=== PATIENT | female | born 1935 | race Caucasian/White ===

== ENCOUNTER → 2016-08-29 | Outpatient (CLI) | payer MEDICARE, OTHER ==
[~2016-08-29] MED LIST: AML5T PO; ASCO250T13 PO; CITA-30 PO; CYAN100023 PO; DENO60SO SC; DOCU-80; GABA-494 PO; GABA300C8 PO; HYDR200T PO; LANS15CA21 PO; LETR2.5T5 PO; METO50TA7 PO; MULT-351; NOR10T PO; OXC300T PO; OXCA150T3 PO; OYST500T29; ROSU10TA16; WARF7.5T
[2016-08-29 14:32] LABS: Basophils # (auto) 0 uL; Basophils % (auto) 0.4 % (0.0-2.0); Eosinophils # (auto) 0.1 uL; Eosinophils % (auto) 1.4 % (0.0-7.0); Hemoglobin 13.7 g/dL (12.2-16.2); Lymphocytes # (auto) 1.6 uL; Mean Corpuscular Hemoglobin 30.5 pg (28.0-32.0); Mean Corpuscular Hgb Conc. 33.5 g/dL (32.0-36.0); Mean Platelet Volume 9.6 fL (7.4-10.4); Monocytes # (auto) 0.6 uL; Monocytes % (auto) 10.3 % (0.0-12.0); Neutrophils # (auto) 3.6 uL; Neutrophils % (auto) 60.9 % (37.0-80.0); Platelet Count (auto) 203 10^3/uL (140-450); Red Cell Distribution Width 13.4 % (11.6-16.0); White Blood Cell 5.8 10^3/uL (4.4-10.8)
[2016-08-29 14:50] LABS: Albumin 3.9 g/dL (3.4-5.0); BUN/Creatinine Ratio 20.7; Bilirubin, Total 0.4 mg/dL (0.2-1.0); Calcium 9.1 mg/dL (8.5-10.1); Potassium 4.2 mmol/L (3.5-5.1); Total Protein 7.5 g/dL (6.4-8.2)
== END | disposition home or self-care (01) ==
LOC: LAB 13:36
PROVIDERS: ATTEND Internal Medicine
DX: C50.619 Malignant neoplasm of axillary tail of unspecified female breast (principal)
CPT/HCPCS: 36415; 80053; 83615; 85025

== ENCOUNTER → 2017-02-28 | Outpatient (CLI) | payer MEDICARE, OTHER ==
[~2017-02-28] MED LIST changes: +GABA-497 PO; -GABA300C8 PO; -LETR2.5T5 PO; +LETR2.5T6 PO
[2017-02-28 14:25] LABS: Basophils # (auto) 0 uL; Basophils % (auto) 0.8 % (0.0-2.0); Eosinophils # (auto) 0.1 uL; Eosinophils % (auto) 2.5 % (0.0-7.0); Hematocrit 38.7 % (36.0-46.0); Hemoglobin 13.3 g/dL (12.2-16.2); Lymphocytes # (auto) 1.6 uL; Lymphocytes % (auto) 27.8 % (10.0-50.0); Mean Corpuscular Hemoglobin 31.4 pg (28.0-32.0); Mean Corpuscular Hgb Conc. 34.3 g/dL (32.0-36.0); Mean Corpuscular Volume 91.6 fL (80.0-100.0); Mean Platelet Volume 9.1 fL (6.9-10.8); Monocytes # (auto) 0.5 uL; Monocytes % (auto) 8.4 % (0.0-12.0); Neutrophils # (auto) 3.5 uL; Neutrophils % (auto) 60.5 % (37.0-80.0); Nucleated Red Blood Cells % 0.3 %; Platelet Count (auto) 161 10^3/uL (140-450); White Blood Cell 5.7 10^3/uL (4.4-10.8)
[2017-02-28 14:51] LABS: Albumin 3.6 g/dL (3.4-5.0); BUN/Creatinine Ratio 22.7; Bilirubin, Total 0.2 mg/dL (0.2-1.0); Calcium 8.2 mg/dL (8.5-10.1); Potassium 4.4 mmol/L (3.5-5.1); Total Protein 7.1 g/dL (6.4-8.2)
== END | disposition home or self-care (01) ==
LOC: LAB 14:02
PROVIDERS: ATTEND Internal Medicine
DX: C50.611 Malignant neoplasm of axillary tail of right female breast (principal)
CPT/HCPCS: 36415; 80053; 83615; 85025

== ENCOUNTER → 2017-03-21 | Outpatient (CLI) | payer MEDICARE ==
[2017-03-21 08:50] LABS: Urine RBC None Seen /hpf (0 - 4)
[2017-03-21 09:28] LABS: Basophils # (auto) 0 uL; Basophils % (auto) 0.8 % (0.0-2.0); Eosinophils # (auto) 0.2 uL; Eosinophils % (auto) 3.7 % (0.0-7.0); Hematocrit 38.9 % (36.0-46.0); Hemoglobin 13.3 g/dL (12.2-16.2); Lymphocytes # (auto) 1.2 uL; Lymphocytes % (auto) 28.3 % (10.0-50.0); Mean Corpuscular Hemoglobin 31.1 pg (28.0-32.0); Mean Corpuscular Hgb Conc. 34.1 g/dL (32.0-36.0); Mean Corpuscular Volume 91.1 fL (80.0-100.0); Mean Platelet Volume 9.4 fL (6.9-10.8); Monocytes # (auto) 0.4 uL; Monocytes % (auto) 8.9 % (0.0-12.0); Neutrophils # (auto) 2.5 uL; Neutrophils % (auto) 58.3 % (37.0-80.0); Nucleated Red Blood Cells % 0.1 %; Platelet Count (auto) 159 10^3/uL (140-450); Red Cell Distribution Width 14.2 % (11.8-14.3); White Blood Cell 4.2 10^3/uL (4.4-10.8)
[2017-03-21 10:06] LABS: Albumin 3.6 g/dL (3.4-5.0); BUN/Creatinine Ratio 24.7; Bilirubin, Total 0.4 mg/dL (0.2-1.0); Calcium 8.9 mg/dL (8.5-10.1); Potassium 4.1 mmol/L (3.5-5.1); Total Protein 7.4 g/dL (6.4-8.2)
[2017-03-21 10:37] LABS: Urine Bilirubin Negative (Negative); Urine Blood Negative /uL (Negative); Urine Color Yellow (Yellow); Urine Glucose Normal (Normal); Urine Ketone Negative (Negative); Urine Mucus FEW (None Seen); Urine Nitrite Negative (Negative); Urine Squamous Epithelial Cell FEW /hpf (<5); Urine Urobilinogen Normal (Negative); Urine pH 6.5 (5.0-8.0)
== END | disposition home or self-care (01) ==
LOC: LAB 08:30
PROVIDERS: ATTEND Internal Medicine
DX: I10 Essential (primary) hypertension (principal); G50.0 Trigeminal neuralgia; F41.8 Other specified anxiety disorders
CPT/HCPCS: 36415; 80053; 80061; 81001; 82043; 84439; 84443; 85025; 85652

== ENCOUNTER → 2017-08-03 | Outpatient (CLI) | payer MEDICARE ==
[~2017-08-03] MED LIST changes: -GABA-494 PO; -GABA-497 PO; +GABA100C9 PO; +GABA300C10 PO
[2017-08-03 10:08] LABS: Albumin 3.9 g/dL (3.4-5.0); BUN/Creatinine Ratio 14.3; Bilirubin, Total 0.5 mg/dL (0.2-1.0); Calcium 8.7 mg/dL (8.5-10.1); Total Protein 7.9 g/dL (6.4-8.2)
== END | disposition home or self-care (01) ==
LOC: LAB 08:36
PROVIDERS: ATTEND Internal Medicine
DX: I10 Essential (primary) hypertension (principal); N39.0 Urinary tract infection, site not specified; E11.9 Type 2 diabetes mellitus without complications; M19.90 Unspecified osteoarthritis, unspecified site
CPT/HCPCS: 36415; 80053; 83721; 84439; 84443

== ENCOUNTER → 2017-09-19 | Outpatient (CLI) | payer MEDICARE ==
[2017-09-19 11:48] LABS: Basophils # (auto) 0 uL; Basophils % (auto) 0.7 % (0.0-2.0); Eosinophils # (auto) 0.1 uL; Eosinophils % (auto) 1.6 % (0.0-7.0); Hematocrit 39.5 % (36.0-46.0); Hemoglobin 13.1 g/dL (12.2-16.2); Lymphocytes # (auto) 1.2 uL; Lymphocytes % (auto) 20.4 % (10.0-50.0); Mean Corpuscular Hemoglobin 30.5 pg (28.0-32.0); Mean Corpuscular Volume 92.2 fL (80.0-100.0); Monocytes # (auto) 0.6 uL; Monocytes % (auto) 9.4 % (0.0-12.0); Neutrophils % (auto) 67.9 % (37.0-80.0); Nucleated Red Blood Cells % 0.1 %; Platelet Count (auto) 220 10^3/uL (140-450); Red Blood Cells 4.29 10^6/uL (4.0-5.20); Red Cell Distribution Width 13.9 % (11.8-14.3)
[2017-09-19 15:02] LABS: Albumin 3.2 g/dL (3.4-5.0); Potassium 4.6 mmol/L (3.5-5.1)
[2017-09-19 15:04] LABS: BUN/Creatinine Ratio 23.7; Calcium 8.8 mg/dL (8.5-10.1)
[2017-09-19 15:06] LABS: Bilirubin, Total 0.3 mg/dL (0.2-1.0)
== END | disposition home or self-care (01) ==
LOC: LAB 10:40
PROVIDERS: ATTEND Internal Medicine
DX: C50.619 Malignant neoplasm of axillary tail of unspecified female breast (principal); I12.9 Hypertensive chronic kidney disease with stage 1 through stage 4 chronic kidney disease, or unspecified chronic kidney disease; E11.22 Type 2 diabetes mellitus with diabetic chronic kidney disease; N18.9 Chronic kidney disease, unspecified
CPT/HCPCS: 36415; 80053; 83615; 85025

== ENCOUNTER → 2018-02-06 | Outpatient (CLI) | payer MEDICARE ==
[~2018-02-06] MED LIST changes: -DENO60SO SC; -DOCU-80; -GABA300C10 PO; +HYDR-4441 PO; -HYDR200T PO; +LISI10TA6 PO; +MELA3TAB27 PO; +MET5XLT PO; -METO50TA7 PO; -NOR10T PO; -OXCA150T3 PO; +OYST500T28 PO; -OYST500T29; +WARF10TA20 PO; +WARF1TAB36 PO; -WARF7.5T
[2018-02-06 12:15] LABS: Basophils # (auto) 0 uL; Basophils % (auto) 0.5 % (0.0-2.0); Eosinophils # (auto) 0.1 uL; Eosinophils % (auto) 1.9 % (0.0-7.0); Hematocrit 39.3 % (36.0-46.0); Hemoglobin 13.6 g/dL (12.2-16.2); Lymphocytes % (auto) 18.7 % (10.0-50.0); Mean Corpuscular Hemoglobin 31.3 pg (28.0-32.0); Mean Corpuscular Hgb Conc. 34.8 g/dL (32.0-36.0); Mean Corpuscular Volume 90.2 fL (80.0-100.0); Monocytes # (auto) 0.5 uL; Monocytes % (auto) 9.4 % (0.0-12.0); Neutrophils # (auto) 3.8 uL; Neutrophils % (auto) 69.5 % (37.0-80.0); Nucleated Red Blood Cells % 0.1 %; Platelet Count (auto) 150 10^3/uL (140-450); Red Blood Cells 4.35 10^6/uL (4.0-5.20); Red Cell Distribution Width 13.4 % (11.8-14.3); White Blood Cell 5.4 10^3/uL (4.4-10.8)
[2018-02-06 13:16] LABS: Albumin 3.6 g/dL (3.4-5.0); BUN/Creatinine Ratio 20.9; Bilirubin, Total 0.3 mg/dL (0.2-1.0); Calcium 8.7 mg/dL (8.5-10.1); Potassium 4.2 mmol/L (3.5-5.1)
== END | disposition home or self-care (01) ==
LOC: LAB 10:34
PROVIDERS: ATTEND Internal Medicine
DX: I10 Essential (primary) hypertension (principal); R19.7 Diarrhea, unspecified; Z90.49 Acquired absence of other specified parts of digestive tract
CPT/HCPCS: 36415; 80053; 85025; 87045; 87493; 87899

== ENCOUNTER 2018-02-20 10:06 | Outpatient (CLI) | payer MEDICARE ==
[~2018-02-20] VITALS: Ht 162.6 cm; Wt 59.0 kg
[2018-02-20 10:21] LABS: Basophils # (auto) 0 uL; Basophils % (auto) 0.7 % (0.0-2.0); Eosinophils # (auto) 0.1 uL; Eosinophils % (auto) 2.8 % (0.0-7.0); Hematocrit 40.7 % (36.0-46.0); Hemoglobin 13.8 g/dL (12.2-16.2); Lymphocytes # (auto) 1.1 uL; Lymphocytes % (auto) 21.7 % (10.0-50.0); Mean Corpuscular Hemoglobin 30.7 pg (28.0-32.0); Mean Corpuscular Hgb Conc. 33.9 g/dL (32.0-36.0); Mean Corpuscular Volume 90.6 fL (80.0-100.0); Monocytes # (auto) 0.5 uL; Monocytes % (auto) 9.3 % (0.0-12.0); Neutrophils # (auto) 3.4 uL; Neutrophils % (auto) 65.5 % (37.0-80.0); Nucleated Red Blood Cells % 0.1 %; Platelet Count (auto) 181 10^3/uL (140-450); Red Cell Distribution Width 13.5 % (11.8-14.3); White Blood Cell 5.2 10^3/uL (4.4-10.8)
[2018-02-20 10:34] LABS: INR 1.4 (0.9-1.15); Partial Thromboplastin Time 26.4 sec (23.78-33.04); Prothrombin Time 14.7 sec (9.27-12.13)
== END 2018-02-20 10:16 | disposition home or self-care (01) ==
LOC: LAB 10:06 → EDSTATUS 02-26 08:15
PROVIDERS: ATTEND Internal Medicine Gastroenterology
DX: K94.01 Colostomy hemorrhage (principal); R19.7 Diarrhea, unspecified; J18.9 Pneumonia, unspecified organism; F41.9 Anxiety disorder, unspecified; F32.9 Major depressive disorder, single episode, unspecified; Z88.8 Allergy status to other drugs, medicaments and biological substances; Z79.01 Long term (current) use of anticoagulants; Z79.899 Other long term (current) drug therapy; Z88.2 Allergy status to sulfonamides; Z86.718 Personal history of other venous thrombosis and embolism; Z85.3 Personal history of malignant neoplasm of breast; Z90.710 Acquired absence of both cervix and uterus; Z90.13 Acquired absence of bilateral breasts and nipples; Z87.891 Personal history of nicotine dependence; Z98.890 Other specified postprocedural states; Z82.49 Family history of ischemic heart disease and other diseases of the circulatory system; Z80.8 Family history of malignant neoplasm of other organs or systems; Z82.3 Family history of stroke; Z80.1 Family history of malignant neoplasm of trachea, bronchus and lung
CPT/HCPCS: 36415; 85025; 85610; 85730

== ENCOUNTER → 2018-03-01 | Outpatient (CLI) | payer MEDICARE ==
[~2018-03-01] MED LIST changes: -CYAN100023 PO; -WARF10TA20 PO
[2018-03-01 10:08] LABS: Basophils # (auto) 0 uL; Basophils % (auto) 0.7 % (0.0-2.0); Eosinophils # (auto) 0.2 uL; Eosinophils % (auto) 3.4 % (0.0-7.0); Hematocrit 39.3 % (36.0-46.0); Hemoglobin 13.6 g/dL (12.2-16.2); Lymphocytes # (auto) 1.1 uL; Lymphocytes % (auto) 20.4 % (10.0-50.0); Mean Corpuscular Hemoglobin 31.7 pg (28.0-32.0); Mean Corpuscular Hgb Conc. 34.7 g/dL (32.0-36.0); Mean Corpuscular Volume 91.5 fL (80.0-100.0); Monocytes # (auto) 0.4 uL; Monocytes % (auto) 7.7 % (0.0-12.0); Neutrophils # (auto) 3.5 uL; Neutrophils % (auto) 67.8 % (37.0-80.0); Nucleated Red Blood Cells % 0.1 %; Platelet Count (auto) 174 10^3/uL (140-450); Red Blood Cells 4.29 10^6/uL (4.0-5.20); White Blood Cell 5.2 10^3/uL (4.4-10.8)
[2018-03-01 20:10] LABS: Albumin 3.9 g/dL (3.4-5.0); Calcium 9.2 mg/dL (8.5-10.1); Potassium 3.9 mmol/L (3.5-5.1)
[2018-03-01 20:17] LABS: Bilirubin, Total 0.5 mg/dL (0.2-1.0); CRP High Sensitivity 1.52 mg/dL (< 0.3); Total Protein 7.8 g/dL (6.4-8.2)
[2018-03-02 15:04] LABS: Urine Bacteria NONE SEEN /hpf (None Seen); Urine Blood Negative /uL (Negative); Urine Specific Gravity 1.016 (1.001-1.035); Urine WBC 1 /hpf (0 - 5)
[2018-03-06 19:51] LABS: Protein, Urine 14.2 mg/dL (0.0-11.9)
== END | disposition home or self-care (01) ==
LOC: LAB 08:49
PROVIDERS: ATTEND Internal Medicine
DX: M81.0 Age-related osteoporosis without current pathological fracture (principal); I10 Essential (primary) hypertension
CPT/HCPCS: 36415; 80053; 81001; 82306; 82570; 84156; 84443; 85025; 85652; 86141; 86160; 86200; 86431

== ENCOUNTER 2018-03-05 13:57 | Emergency (ER) | payer MEDICARE ==
[~2018-03-05] VITALS: Ht 152.4 cm; Wt 54.4 kg
[2018-03-05 15:00] LABS: Basophils # (auto) 0 uL; Basophils % (auto) 0.4 % (0.0-2.0); Eosinophils # (auto) 0.1 uL; Eosinophils % (auto) 2.7 % (0.0-7.0); Hematocrit 37.4 % (36.0-46.0); Hemoglobin 12.6 g/dL (12.2-16.2); Lymphocytes # (auto) 1.1 uL; Lymphocytes % (auto) 23.3 % (10.0-50.0); Mean Corpuscular Hemoglobin 30.9 pg (28.0-32.0); Mean Corpuscular Hgb Conc. 33.8 g/dL (32.0-36.0); Mean Corpuscular Volume 91.5 fL (80.0-100.0); Monocytes # (auto) 0.5 uL; Monocytes % (auto) 10.2 % (0.0-12.0); Neutrophils % (auto) 63.4 % (37.0-80.0); Nucleated Red Blood Cells % 0.1 %; Platelet Count (auto) 170 10^3/uL (140-450); Red Blood Cells 4.08 10^6/uL (4.0-5.20); Red Cell Distribution Width 14.1 % (11.8-14.3); White Blood Cell 4.7 10^3/uL (4.4-10.8)
[2018-03-05 15:15] LABS: Albumin 3.4 g/dL (3.4-5.0); BUN/Creatinine Ratio 20.5; Calcium 8.2 mg/dL (8.5-10.1); Potassium 4.1 mmol/L (3.5-5.1)
[2018-03-05 15:18] LABS: Bilirubin, Total 0.3 mg/dL (0.2-1.0); Total Protein 7.2 g/dL (6.4-8.2)
[2018-03-05 15:34] LABS: Urine Bacteria NONE SEEN /hpf (None Seen); Urine Blood Negative /uL (Negative); Urine Mucus FEW (None Seen); Urine Specific Gravity 1.018 (1.001-1.035); Urine WBC 23 /hpf (0 - 5)
[2018-03-05 16:34] VITALS: BP 138/63
== END 2018-03-05 16:36 | disposition home or self-care (01) ==
LOC: EDUNIT# 13:57 → ER 13:57 → EDBD 13:57 → ER 16:36
DX: S30.0XXA Contusion of lower back and pelvis, initial encounter (principal); S00.83XA Contusion of other part of head, initial encounter; N39.0 Urinary tract infection, site not specified; M19.90 Unspecified osteoarthritis, unspecified site; E78.5 Hyperlipidemia, unspecified; I10 Essential (primary) hypertension; M32.9 Systemic lupus erythematosus, unspecified; Z88.8 Allergy status to other drugs, medicaments and biological substances; Z79.899 Other long term (current) drug therapy; Z86.73 Personal history of transient ischemic attack (TIA), and cerebral infarction without residual deficits; Z90.49 Acquired absence of other specified parts of digestive tract; Z90.710 Acquired absence of both cervix and uterus; W01.198A Fall on same level from slipping, tripping and stumbling with subsequent striking against other object, initial encounter; Y93.89 Activity, other specified; Y99.8 Other external cause status; Y92.128 Other place in nursing home as the place of occurrence of the external cause
CPT/HCPCS: 36415; 70486; 73502; 80053; 81001; 85025; 93005

== ENCOUNTER → 2018-03-27 | Outpatient (CLI) | payer MEDICARE ==
[2018-03-27 13:49] LABS: Basophils # (auto) 0 uL; Basophils % (auto) 0.5 % (0.0-2.0); Eosinophils # (auto) 0.1 uL; Hematocrit 40.9 % (36.0-46.0); Hemoglobin 13.7 g/dL (12.2-16.2); Lymphocytes # (auto) 1.4 uL; Lymphocytes % (auto) 27.1 % (10.0-50.0); Mean Corpuscular Hemoglobin 30.9 pg (28.0-32.0); Mean Corpuscular Hgb Conc. 33.4 g/dL (32.0-36.0); Mean Corpuscular Volume 92.6 fL (80.0-100.0); Monocytes # (auto) 0.5 uL; Monocytes % (auto) 8.8 % (0.0-12.0); Neutrophils # (auto) 3.2 uL; Neutrophils % (auto) 61.6 % (37.0-80.0); Nucleated Red Blood Cells % 0.1 %; Platelet Count (auto) 167 10^3/uL (140-450); Red Blood Cells 4.42 10^6/uL (4.0-5.20); Red Cell Distribution Width 14.1 % (11.8-14.3); White Blood Cell 5.3 10^3/uL (4.4-10.8)
[2018-03-27 14:30] LABS: Calcium 8.7 mg/dL (8.5-10.1); Potassium 3.7 mmol/L (3.5-5.1)
[2018-03-27 14:36] LABS: Albumin 3.9 g/dL (3.4-5.0); BUN/Creatinine Ratio 20.9; Bilirubin, Total 0.4 mg/dL (0.2-1.0)
== END | disposition home or self-care (01) ==
LOC: LAB 12:11
PROVIDERS: ATTEND Internal Medicine
DX: C50.619 Malignant neoplasm of axillary tail of unspecified female breast (principal)
CPT/HCPCS: 36415; 80053; 83615; 85025

== ENCOUNTER 2018-07-03 03:12 | Emergency (ER) | payer MEDICARE ==
[~2018-07-03] VITALS: Ht 162.6 cm; Wt 59.0 kg
[2018-07-03 04:22] LABS: Basophils # (auto) 0 uL; Eosinophils # (auto) 0.1 uL; Eosinophils % (auto) 2.1 % (0.0-7.0); Hemoglobin 12.9 g/dL (12.2-16.2); Lymphocytes # (auto) 0.5 uL; Lymphocytes % (auto) 11.8 % (10.0-50.0); Mean Corpuscular Hemoglobin 30.8 pg (28.0-32.0); Mean Corpuscular Volume 90.5 fL (80.0-100.0); Monocytes # (auto) 0.7 uL; Monocytes % (auto) 15.8 % (0.0-12.0); Neutrophils # (auto) 2.9 uL; Neutrophils % (auto) 69.3 % (37.0-80.0); Nucleated Red Blood Cells % 0.1 %; Platelet Count (auto) 140 10^3/uL (140-450); Red Cell Distribution Width 13.5 % (11.8-14.3); White Blood Cell 4.2 10^3/uL (4.4-10.8)
[2018-07-03 04:32] LABS: Albumin 3.4 g/dL (3.4-5.0); Anion Gap 10 (5-15); BUN/Creatinine Ratio 20.2; Blood Urea Nitrogen 19 mg/dL (7-18); Calcium 8.1 mg/dL (8.5-10.1); Carbon Dioxide 26 mmol/L (21-32); Chloride 98 mmol/L (98-107); GFR African American 74 mL/min; GFR Non-African American 61 mL/min; Glucose 104 mg/dL (74-106); Sodium 134 mmol/L (136-145)
[2018-07-03 04:37] LABS: Alanine Aminotransferase 21 U/L (13-56); Alkaline Phosphatase 112 U/L (45-117); Aspartate Aminotransferase 31 U/L (15-37); Bilirubin, Total 0.2 mg/dL (0.2-1.0)
[2018-07-03 04:40] LABS: INR 2.16 (0.9-1.15); Partial Thromboplastin Time 36.6 sec (23.78-33.04); Prothrombin Time 22.1 sec (9.27-12.13)
[2018-07-03 06:00] VITALS: BP 138/69
== END 2018-07-03 06:23 | disposition left against medical advice (07) ==
LOC: EDBD 03:12 → ER 03:14
DX: R55 Syncope and collapse (principal); D68.9 Coagulation defect, unspecified; R53.1 Weakness; M19.90 Unspecified osteoarthritis, unspecified site; E78.5 Hyperlipidemia, unspecified; I10 Essential (primary) hypertension; Z90.49 Acquired absence of other specified parts of digestive tract; Z90.710 Acquired absence of both cervix and uterus; Z88.8 Allergy status to other drugs, medicaments and biological substances; Z79.01 Long term (current) use of anticoagulants; Z79.899 Other long term (current) drug therapy; Z86.73 Personal history of transient ischemic attack (TIA), and cerebral infarction without residual deficits
CPT/HCPCS: 36415; 70450; 71045; 80053; 83880; 84484; 85025; 85379; 85610; 85730; 93005

== ENCOUNTER → 2018-07-31 | Outpatient (CLI) | payer MEDICARE ==
[2018-07-31 11:32] LABS: Basophils # (auto) 0 uL; Basophils % (auto) 0.4 % (0.0-2.0); Eosinophils # (auto) 0.2 uL; Eosinophils % (auto) 3.7 % (0.0-7.0); Hemoglobin 13.7 g/dL (12.2-16.2); Lymphocytes % (auto) 22.5 % (10.0-50.0); Mean Corpuscular Hemoglobin 30.3 pg (28.0-32.0); Mean Corpuscular Hgb Conc. 33.3 g/dL (32.0-36.0); Mean Corpuscular Volume 90.9 fL (80.0-100.0); Monocytes # (auto) 0.4 uL; Neutrophils # (auto) 2.8 uL; Neutrophils % (auto) 64.4 % (37.0-80.0); Nucleated Red Blood Cells % 0.1 %; Platelet Count (auto) 170 10^3/uL (140-450); Red Blood Cells 4.51 10^6/uL (4.0-5.20); Red Cell Distribution Width 13.8 % (11.8-14.3); White Blood Cell 4.3 10^3/uL (4.4-10.8)
[2018-07-31 11:33] LABS: Potassium 4.1 mmol/L (3.5-5.1)
[2018-07-31 11:39] LABS: Albumin 3.6 g/dL (3.4-5.0); BUN/Creatinine Ratio 18.3; Bilirubin, Total 0.3 mg/dL (0.2-1.0); Calcium 8.3 mg/dL (8.5-10.1); Total Protein 7.7 g/dL (6.4-8.2)
== END | disposition home or self-care (01) ==
LOC: LAB 10:42
DX: G45.0 Vertebro-basilar artery syndrome (principal); M79.7 Fibromyalgia
CPT/HCPCS: 36415; 80053; 85025

== ENCOUNTER → 2018-11-13 | Outpatient (CLI) | payer MEDICARE ==
[2018-11-13 11:27] LABS: Basophils # (auto) 0 uL; Basophils % (auto) 0.5 % (0.0-2.0); Eosinophils # (auto) 0.1 uL; Eosinophils % (auto) 2.2 % (0.0-7.0); Hematocrit 39.2 % (36.0-46.0); Hemoglobin 13.3 g/dL (12.2-16.2); Lymphocytes # (auto) 1.2 uL; Lymphocytes % (auto) 26.5 % (10.0-50.0); Mean Corpuscular Hemoglobin 31.3 pg (28.0-32.0); Mean Corpuscular Hgb Conc. 34.1 g/dL (32.0-36.0); Mean Corpuscular Volume 91.9 fL (80.0-100.0); Monocytes # (auto) 0.4 uL; Monocytes % (auto) 8.9 % (0.0-12.0); Neutrophils # (auto) 2.9 uL; Neutrophils % (auto) 61.9 % (37.0-80.0); Nucleated Red Blood Cells % 0.1 %; Platelet Count (auto) 171 10^3/uL (140-450); Red Blood Cells 4.26 10^6/uL (4.0-5.20); Red Cell Distribution Width 13.6 % (11.8-14.3); White Blood Cell 4.7 10^3/uL (4.4-10.8)
[2018-11-13 11:28] LABS: Urine Bacteria NONE SEEN /hpf (None Seen); Urine Blood TRACE /uL (Negative); Urine Budding Yeast OCCASIONAL /hpf (None Seen); Urine Specific Gravity 1.014 (1.001-1.035); Urine WBC 27 /hpf (0 - 5)
[2018-11-13 13:15] LABS: Albumin 3.8 g/dL (3.4-5.0); BUN/Creatinine Ratio 17.7; Calcium 9.3 mg/dL (8.5-10.1); Potassium 4.2 mmol/L (3.5-5.1)
[2018-11-13 13:18] LABS: Bilirubin, Total 0.4 mg/dL (0.2-1.0); Total Protein 7.5 g/dL (6.4-8.2)
== END | disposition home or self-care (01) ==
LOC: LAB 10:43
PROVIDERS: ATTEND Internal Medicine
DX: M81.0 Age-related osteoporosis without current pathological fracture (principal); M54.30 Sciatica, unspecified side; I10 Essential (primary) hypertension; E78.5 Hyperlipidemia, unspecified; E78.00 Pure hypercholesterolemia, unspecified
CPT/HCPCS: 36415; 80053; 81001; 82043; 82306; 84439; 84443; 85025; 85652

== ENCOUNTER → 2018-12-06 | Outpatient (CLI) | payer MEDICARE | END | disposition home or self-care (01) | LOC: LAB 15:02 | PROVIDERS: ATTEND Internal Medicine | DX: R35.0 Frequency of micturition (principal); R42 Dizziness and giddiness | CPT/HCPCS: 87086; 87088; 87186 ==

== ENCOUNTER → 2019-01-24 | Outpatient (CLI) | payer MEDICARE ==
[~2019-01-24] MED LIST changes: +HYDR-4188 PO; -HYDR-4441 PO; -MET5XLT PO; +METO-6 PO
[2019-01-24 10:48] LABS: Basophils # (auto) 0.1 uL; Basophils % (auto) 1.2 % (0.0-2.0); Eosinophils # (auto) 0.2 uL; Eosinophils % (auto) 2.9 % (0.0-7.0); Hemoglobin 14.3 g/dL (12.2-16.2); Lymphocytes # (auto) 1.6 uL; Mean Corpuscular Hemoglobin 31.2 pg (28.0-32.0); Mean Corpuscular Hgb Conc. 34.1 g/dL (32.0-36.0); Mean Corpuscular Volume 91.4 fL (80.0-100.0); Monocytes # (auto) 0.5 uL; Monocytes % (auto) 9.1 % (0.0-12.0); Neutrophils % (auto) 56.8 % (37.0-80.0); Nucleated Red Blood Cells % 0.1 %; Platelet Count (auto) 174 10^3/uL (140-450); Red Blood Cells 4.59 10^6/uL (4.0-5.20); Red Cell Distribution Width 13.3 % (11.8-14.3); White Blood Cell 5.2 10^3/uL (4.4-10.8)
[2019-01-24 11:07] LABS: Calcium 9.6 mg/dL (8.5-10.1); Potassium 3.5 mmol/L (3.5-5.1)
[2019-01-24 11:14] LABS: Albumin 3.8 g/dL (3.4-5.0); BUN/Creatinine Ratio 19.6; Bilirubin, Total 0.3 mg/dL (0.2-1.0); CRP High Sensitivity 0.16 mg/dL (< 0.3)
== END | disposition home or self-care (01) ==
LOC: LAB 09:50
PROVIDERS: ATTEND Internal Medicine Rheumatology
DX: M32.0 Drug-induced systemic lupus erythematosus (principal); I10 Essential (primary) hypertension
CPT/HCPCS: 36415; 80053; 85025; 85652; 86141

== ENCOUNTER 2019-02-01 08:38 | Emergency (ER) | payer MEDICARE ==
[~2019-02-01] VITALS: Ht 160 cm; Wt 53.5 kg
[2019-02-01 08:55] VITALS: BP 168/74
[2019-02-01] MEDS ORDERED: GABAPENTIN 300 MG CAP PO ONE (09:30)
[2019-02-01] MEDS ORDERED: HYDROcodone-ACET 5/325MG TAB PO ONE (09:30)
[2019-02-01] MEDS ORDERED: PANTOPRAZOLE 40 MG TAB PO ONE (09:45)
[2019-02-01] MEDS ORDERED: OMEPRAZOLE 20MG/10ML ORAL SUSP PO SCH (10:00)
[2019-02-01] MEDS ORDERED: methylPREDNISolone SOD SUCC 125 MG/2 ML VL IM ONE (10:45)
== END 2019-02-01 11:05 | disposition home or self-care (01) ==
LOC: EDBD 08:38 → ER 08:39
DX: M48.061 Spinal stenosis, lumbar region without neurogenic claudication (principal); E78.5 Hyperlipidemia, unspecified; I10 Essential (primary) hypertension; Z90.49 Acquired absence of other specified parts of digestive tract; Z90.710 Acquired absence of both cervix and uterus; Z86.73 Personal history of transient ischemic attack (TIA), and cerebral infarction without residual deficits; Z88.6 Allergy status to analgesic agent; Z79.899 Other long term (current) drug therapy; X50.1XXA Overexertion from prolonged static or awkward postures, initial encounter; Y93.89 Activity, other specified; Y92.89 Other specified places as the place of occurrence of the external cause; Y99.8 Other external cause status
CPT/HCPCS: 72131; 96372; 99284; J2930

== ENCOUNTER 2019-02-10 21:44 | Emergency (ER) | payer MEDICARE ==
[~2019-02-10] VITALS: Ht 162.6 cm; Wt 57.6 kg
[2019-02-11] MEDS ORDERED: MORPHINE SULFATE 4 MG/ML SYR/VIAL ONE (00:42)
[2019-02-11] MEDS ORDERED: ONDANSETRON HCL 4 MG/2 ML VIAL ONE (00:42)
[2019-02-11] MEDS ORDERED: ONDANSETRON HCL 4 MG/2 ML VIAL IM ONE (00:45)
[2019-02-11] MEDS ORDERED: MORPHINE SULFATE 10 MG/ML INJ 1ML SDV IM ONE (00:45)
[2019-02-11 06:10] VITALS: BP 170/71
== END 2019-02-11 07:22 | disposition home or self-care (01) ==
LOC: EDBD 21:44 → ER 21:48
DX: G50.0 Trigeminal neuralgia (principal); M19.90 Unspecified osteoarthritis, unspecified site; E78.5 Hyperlipidemia, unspecified; I10 Essential (primary) hypertension; Z90.49 Acquired absence of other specified parts of digestive tract; Z88.6 Allergy status to analgesic agent; Z79.899 Other long term (current) drug therapy; Z79.01 Long term (current) use of anticoagulants; Z86.73 Personal history of transient ischemic attack (TIA), and cerebral infarction without residual deficits; Z86.718 Personal history of other venous thrombosis and embolism
CPT/HCPCS: 96372; 99283; J2270; J2405

== ENCOUNTER → 2019-04-11 | Outpatient (CLI) | payer MEDICARE ==
[2019-04-11 14:02] LABS: Urine Bacteria MOD /hpf (None Seen); Urine Blood 1+ /uL (Negative); Urine Mucus FEW (None Seen); Urine Specific Gravity 1.018 (1.001-1.035); Urine WBC 2281 /hpf (0 - 5)
== END | disposition home or self-care (01) ==
LOC: LAB 13:30
PROVIDERS: ATTEND Internal Medicine
DX: N39.0 Urinary tract infection, site not specified (principal); M19.90 Unspecified osteoarthritis, unspecified site; E78.5 Hyperlipidemia, unspecified; I10 Essential (primary) hypertension; Z86.73 Personal history of transient ischemic attack (TIA), and cerebral infarction without residual deficits; Z86.718 Personal history of other venous thrombosis and embolism; Z90.710 Acquired absence of both cervix and uterus; Z90.49 Acquired absence of other specified parts of digestive tract; Z88.1 Allergy status to other antibiotic agents
CPT/HCPCS: 81001; 87086; 87088; 87186

== ENCOUNTER → 2019-04-16 | Outpatient (CLI) | payer MEDICARE ==
[2019-04-16 13:38] LABS: Basophils # (auto) 0 uL; Basophils % (auto) 0.6 % (0.0-2.0); Eosinophils # (auto) 0.1 uL; Eosinophils % (auto) 1.7 % (0.0-7.0); Hematocrit 37.9 % (36.0-46.0); Hemoglobin 12.7 g/dL (12.2-16.2); Lymphocytes # (auto) 1.3 uL; Lymphocytes % (auto) 23.6 % (10.0-50.0); Mean Corpuscular Hemoglobin 30.3 pg (28.0-32.0); Mean Corpuscular Hgb Conc. 33.6 g/dL (32.0-36.0); Mean Corpuscular Volume 90.3 fL (80.0-100.0); Monocytes # (auto) 0.6 uL; Monocytes % (auto) 10.9 % (0.0-12.0); Neutrophils # (auto) 3.6 uL; Neutrophils % (auto) 63.2 % (37.0-80.0); Platelet Count (auto) 187 10^3/uL (140-450); Red Blood Cells 4.19 10^6/uL (4.0-5.20); Red Cell Distribution Width 13.5 % (11.8-14.3); White Blood Cell 5.7 10^3/uL (4.4-10.8)
[2019-04-16 14:22] LABS: Potassium 3.9 mmol/L (3.5-5.1)
[2019-04-16 14:35] LABS: Albumin 3.3 g/dL (3.4-5.0); BUN/Creatinine Ratio 15.1; Bilirubin, Total 0.3 mg/dL (0.2-1.0); Calcium 9.3 mg/dL (8.5-10.1); Total Protein 6.7 g/dL (6.4-8.2)
== END | disposition home or self-care (01) ==
LOC: LAB 13:07
PROVIDERS: ATTEND Internal Medicine
DX: C50.619 Malignant neoplasm of axillary tail of unspecified female breast (principal)
CPT/HCPCS: 36415; 80053; 83615; 85025

== ENCOUNTER → 2019-05-01 | Outpatient (CLI) | payer MEDICARE ==
[2019-05-01 15:16] LABS: Urine Bacteria NONE SEEN /hpf (None Seen); Urine Blood 1+ /uL (Negative); Urine Mucus FEW (None Seen); Urine Specific Gravity 1.016 (1.001-1.035); Urine WBC 2011 /hpf (0 - 5); Urine WBC Clumps PRESENT /hpf (None Seen)
== END | disposition home or self-care (01) ==
LOC: LAB 14:33
PROVIDERS: ATTEND Internal Medicine
DX: N39.0 Urinary tract infection, site not specified (principal)
CPT/HCPCS: 81001; 87086; 87088; 87186

== ENCOUNTER → 2019-05-16 | Outpatient (CLI) | payer MEDICARE | END | disposition home or self-care (01) | LOC: LAB 16:22 | PROVIDERS: ATTEND Urology | DX: N39.0 Urinary tract infection, site not specified (principal) | CPT/HCPCS: 87086; 87088; 87186 ==

== ENCOUNTER → 2019-05-30 | Outpatient (CLI) | payer MEDICARE ==
[2019-05-30 13:23] LABS: Urine Bacteria NONE SEEN /hpf (None Seen); Urine Blood Negative /uL (Negative); Urine Specific Gravity 1.009 (1.001-1.035); Urine WBC 85 /hpf (0 - 5)
== END | disposition home or self-care (01) ==
LOC: LAB 13:07
PROVIDERS: ATTEND Internal Medicine
DX: N39.0 Urinary tract infection, site not specified (principal)
CPT/HCPCS: 81001; 87086

== ENCOUNTER → 2019-06-06 | Outpatient (CLI) | payer MEDICARE ==
[2019-06-06 10:42] LABS: Basophils # (auto) 0 uL; Basophils % (auto) 0.5 % (0.0-2.0); Eosinophils # (auto) 0.1 uL; Eosinophils % (auto) 1.2 % (0.0-7.0); Hematocrit 38.8 % (36.0-46.0); Hemoglobin 13.4 g/dL (12.2-16.2); Lymphocytes # (auto) 0.9 uL; Lymphocytes % (auto) 20.6 % (10.0-50.0); Mean Corpuscular Hemoglobin 31.4 pg (28.0-32.0); Mean Corpuscular Hgb Conc. 34.5 g/dL (32.0-36.0); Mean Corpuscular Volume 90.9 fL (80.0-100.0); Monocytes # (auto) 0.5 uL; Monocytes % (auto) 11.1 % (0.0-12.0); Neutrophils % (auto) 66.6 % (37.0-80.0); Platelet Count (auto) 183 10^3/uL (140-450); Red Blood Cells 4.26 10^6/uL (4.0-5.20); Red Cell Distribution Width 13.7 % (11.8-14.3); White Blood Cell 4.5 10^3/uL (4.4-10.8)
[2019-06-06 11:07] LABS: Calcium 9.6 mg/dL (8.5-10.1); Potassium 3.7 mmol/L (3.5-5.1)
[2019-06-06 11:12] LABS: Albumin 3.6 g/dL (3.4-5.0); BUN/Creatinine Ratio 19.7; Bilirubin, Total 0.5 mg/dL (0.2-1.0); Total Protein 7.5 g/dL (6.4-8.2)
== END | disposition home or self-care (01) ==
LOC: LAB 10:24
PROVIDERS: ATTEND Internal Medicine
DX: I10 Essential (primary) hypertension (principal); R55 Syncope and collapse
CPT/HCPCS: 36415; 80053; 85025

== ENCOUNTER → 2019-08-23 | Outpatient (CLI) | payer MEDICARE | END | disposition home or self-care (01) | LOC: LAB 12:42 | PROVIDERS: ATTEND Internal Medicine | DX: I10 Essential (primary) hypertension (principal) | CPT/HCPCS: 87493 ==

== ENCOUNTER → 2019-09-18 | Outpatient (CLI) | payer MEDICARE | END | disposition home or self-care (01) | LOC: LAB 12:47 | PROVIDERS: ATTEND Internal Medicine | DX: I10 Essential (primary) hypertension (principal); N39.0 Urinary tract infection, site not specified | CPT/HCPCS: 87493 ==

== ENCOUNTER → 2019-10-08 | Outpatient (CLI) | payer MEDICARE ==
[2019-10-08 11:12] LABS: Basophils # (auto) 0 10 ^3/uL (0-0.2); Basophils % (auto) 0.5 % (0.0-2.0); Eosinophils # (auto) 0.1 10 ^3/uL (0-0.8); Eosinophils % (auto) 2.2 % (0.0-7.0); Hematocrit 41.2 % (36.0-46.0); Hemoglobin 13.6 g/dL (12.2-16.2); Lymphocytes # (auto) 1.2 10 ^3/uL (0.4-5.4); Lymphocytes % (auto) 20.5 % (10.0-50.0); Mean Corpuscular Hemoglobin 30.8 pg (28.0-32.0); Mean Corpuscular Hgb Conc. 33.1 g/dL (32.0-36.0); Mean Corpuscular Volume 92.8 fL (80.0-100.0); Monocytes # (auto) 0.4 10 ^3/uL (0-1.3); Monocytes % (auto) 7.1 % (0.0-12.0); Neutrophils # (auto) 4.1 10 ^3/uL (1.6-8.6); Neutrophils % (auto) 69.7 % (37.0-80.0); Platelet Count (auto) 155 10^3/uL (140-450); Red Blood Cells 4.43 10^6/uL (4.0-5.20); Red Cell Distribution Width 13.1 % (11.8-14.3)
[2019-10-08 11:23] LABS: Urine Bacteria MOD /hpf (None Seen); Urine Blood 1+ /uL (Negative); Urine Mucus FEW (None Seen); Urine Specific Gravity 1.015 (1.001-1.035); Urine WBC 1495 /hpf (0 - 5); Urine WBC Clumps PRESENT /hpf (None Seen)
[2019-10-08 12:32] LABS: Potassium 4.2 mmol/L (3.5-5.1)
[2019-10-08 12:41] LABS: Albumin 3.6 g/dL (3.4-5.0); BUN/Creatinine Ratio 20.5; Bilirubin, Total 0.4 mg/dL (0.2-1.0); Calcium 9.6 mg/dL (8.5-10.1); Total Protein 7.9 g/dL (6.4-8.2)
== END | disposition home or self-care (01) ==
LOC: LAB 10:40
PROVIDERS: ATTEND Internal Medicine
DX: I10 Essential (primary) hypertension (principal); E78.5 Hyperlipidemia, unspecified; M19.90 Unspecified osteoarthritis, unspecified site
CPT/HCPCS: 36415; 80053; 80061; 81001; 84439; 84443; 85025; 85652; 86225; 86235

== ENCOUNTER → 2019-11-12 | Day surgery (SDC) | payer MEDICARE ==
[2019-11-08 15:07] LABS: Basophils # (auto) 0 10 ^3/uL (0-0.2); Basophils % (auto) 0.6 % (0.0-2.0); Eosinophils # (auto) 0.1 10 ^3/uL (0-0.8); Eosinophils % (auto) 2.5 % (0.0-7.0); Hematocrit 38.5 % (36.0-46.0); Hemoglobin 12.7 g/dL (12.2-16.2); Lymphocytes # (auto) 1.3 10 ^3/uL (0.4-5.4); Lymphocytes % (auto) 23.1 % (10.0-50.0); Mean Corpuscular Hemoglobin 30.9 pg (28.0-32.0); Mean Corpuscular Hgb Conc. 32.9 g/dL (32.0-36.0); Mean Corpuscular Volume 93.7 fL (80.0-100.0); Monocytes # (auto) 0.6 10 ^3/uL (0-1.3); Monocytes % (auto) 9.9 % (0.0-12.0); Neutrophils # (auto) 3.7 10 ^3/uL (1.6-8.6); Neutrophils % (auto) 63.9 % (37.0-80.0); Platelet Count (auto) 164 10^3/uL (140-450); Red Blood Cells 4.11 10^6/uL (4.0-5.20); Red Cell Distribution Width 13.1 % (11.8-14.3); White Blood Cell 5.8 10^3/uL (4.4-10.8)
[2019-11-08 15:22] LABS: INR 1.41 (0.9-1.15); Partial Thromboplastin Time 29.4 sec (23.64-32.05)
[~2019-11-12] VITALS: Ht 160 cm; Wt 51.7 kg
[~2019-11-12] MED LIST changes: -ASCO250T13 PO; -GABA100C9 PO; -HYDR-4188 PO; -LANS15CA21 PO; -LETR2.5T6 PO; +LIDOCAINE VISCOUS 2% 15ML UD ONE; -MELA3TAB27 PO; -MULT-351; -OXC300T PO; -OYST500T28 PO; +SODIUM CHLORIDE LOCK 10 ML ONE; +WARF10TA20 PO; -WARF1TAB36 PO; +WARF5TAB71 PO; +diphenhdrAMINE HCL 50 MG/1 ML VL ONE
[2019-11-12] MEDS: fentaNYL CITRATE 100 MCG/2 ML VL ONE ×2 (09:33→09:35)
[2019-11-12] MEDS: MIDAZOLAM HCL 5 MG/ML-1ML VIAL ONE ×2 (09:33→09:35)
[2019-11-12 10:16] VITALS: BP 156/64
== END | disposition home or self-care (01) ==
LOC: GI 08:20
PROVIDERS: ATTEND Internal Medicine Gastroenterology
DX: R19.7 Diarrhea, unspecified (principal); K29.50 Unspecified chronic gastritis without bleeding; K22.10 Ulcer of esophagus without bleeding; K44.9 Diaphragmatic hernia without obstruction or gangrene; K21.9 Gastro-esophageal reflux disease without esophagitis; Z98.890 Other specified postprocedural states; Z79.899 Other long term (current) drug therapy; Z90.710 Acquired absence of both cervix and uterus; Z90.10 Acquired absence of unspecified breast and nipple; Z11.59 Encounter for screening for other viral diseases
CPT/HCPCS: 36415; 43239; 85025; 85610; 85730; 88305; 88342; J2250; J3010; J7030; U0003

== ENCOUNTER → 2019-12-05 | Outpatient (CLI) | payer MEDICARE, OTHER ==
[~2019-12-05] MED LIST changes: +CARB200T PO; -LIDOCAINE VISCOUS 2% 15ML UD ONE; +LISI-648 PO; -LISI10TA6 PO; +OMEP20TA PO; -SODIUM CHLORIDE LOCK 10 ML ONE; +SUCR1TAB22 PO; -diphenhdrAMINE HCL 50 MG/1 ML VL ONE
== END | disposition home or self-care (01) ==
LOC: LAB 09:19
PROVIDERS: ATTEND Internal Medicine
DX: N39.0 Urinary tract infection, site not specified (principal)
CPT/HCPCS: 87086; 87493

== ENCOUNTER → 2019-12-12 | Outpatient (CLI) | payer MEDICARE ==
[2019-12-19 15:26] LABS: Basophils # (auto) 0 10 ^3/uL (0-0.2); Basophils % (auto) 0.6 % (0.0-2.0); Eosinophils # (auto) 0.2 10 ^3/uL (0-0.8); Eosinophils % (auto) 3.2 % (0.0-7.0); Hematocrit 37.1 % (36.0-46.0); Hemoglobin 12.5 g/dL (12.2-16.2); Lymphocytes # (auto) 1.6 10 ^3/uL (0.4-5.4); Lymphocytes % (auto) 26.6 % (10.0-50.0); Mean Corpuscular Hemoglobin 31.6 pg (28.0-32.0); Mean Corpuscular Hgb Conc. 33.5 g/dL (32.0-36.0); Mean Corpuscular Volume 94.2 fL (80.0-100.0); Monocytes # (auto) 0.5 10 ^3/uL (0-1.3); Monocytes % (auto) 9.2 % (0.0-12.0); Neutrophils # (auto) 3.5 10 ^3/uL (1.6-8.6); Neutrophils % (auto) 60.4 % (37.0-80.0); Nucleated Red Blood Cells % 0.1 %; Platelet Count (auto) 165 10^3/uL (140-450); Red Blood Cells 3.94 10^6/uL (4.0-5.20); White Blood Cell 5.8 10^3/uL (4.4-10.8)
[2019-12-19 15:43] LABS: INR 2.51 (0.9-1.15); Partial Thromboplastin Time 36.2 sec (23.64-32.05)
== END | disposition home or self-care (01) ==
LOC: GI 07:49 → EDSTATUS 12-24 09:21
PROVIDERS: ATTEND Internal Medicine Gastroenterology
DX: Z01.818 Encounter for other preprocedural examination (principal); R19.7 Diarrhea, unspecified
CPT/HCPCS: 36415; 85025; 85610; 85730

== ENCOUNTER → 2019-12-18 | Outpatient (CLI) | payer MEDICARE ==
[2019-12-18 11:10] LABS: Urine Bacteria NONE SEEN /hpf (None Seen); Urine Blood 1+ /uL (Negative); Urine Specific Gravity 1.022 (1.001-1.035); Urine WBC 1203 /hpf (0 - 5); Urine WBC Clumps PRESENT /hpf (None Seen)
== END | disposition home or self-care (01) ==
LOC: LAB 10:51
PROVIDERS: ATTEND Internal Medicine
DX: R30.0 Dysuria (principal)
CPT/HCPCS: 81001; 87086

== ENCOUNTER → 2020-03-05 | Outpatient (CLI) | payer MEDICARE | END | disposition home or self-care (01) | LOC: LAB 11:09 | DX: M25.50 Pain in unspecified joint (principal) | CPT/HCPCS: 36415; 85652; 86141 ==

== ENCOUNTER → 2020-03-24 | Outpatient (CLI) | payer MEDICARE ==
[2020-03-24 11:16] LABS: Basophils # (auto) 0 10 ^3/uL (0-0.2); Basophils % (auto) 0.8 % (0.0-2.0); Eosinophils # (auto) 0.2 10 ^3/uL (0-0.8); Eosinophils % (auto) 3.7 % (0.0-7.0); Hematocrit 38.9 % (36.0-46.0); Hemoglobin 12.9 g/dL (12.2-16.2); Lymphocytes # (auto) 1.1 10 ^3/uL (0.4-5.4); Mean Corpuscular Hemoglobin 31.3 pg (28.0-32.0); Mean Corpuscular Hgb Conc. 33.2 g/dL (32.0-36.0); Mean Corpuscular Volume 94.2 fL (80.0-100.0); Monocytes # (auto) 0.4 10 ^3/uL (0-1.3); Neutrophils # (auto) 2.5 10 ^3/uL (1.6-8.6); Neutrophils % (auto) 58.5 % (37.0-80.0); Nucleated Red Blood Cells % 0.1 %; Platelet Count (auto) 144 10^3/uL (140-450); Red Blood Cells 4.12 10^6/uL (4.0-5.20); Red Cell Distribution Width 13.4 % (11.8-14.3); White Blood Cell 4.3 10^3/uL (4.4-10.8)
[2020-03-24 11:40] LABS: Albumin 3.3 g/dL (3.4-5.0); Calcium 8.8 mg/dL (8.5-10.1); Potassium 4.8 mmol/L (3.5-5.1)
[2020-03-24 11:44] LABS: BUN/Creatinine Ratio 23.3; Bilirubin, Total 0.4 mg/dL (0.2-1.0)
== END | disposition home or self-care (01) ==
LOC: LAB 10:55
PROVIDERS: ATTEND Internal Medicine
DX: B02.22 Postherpetic trigeminal neuralgia (principal); I10 Essential (primary) hypertension
CPT/HCPCS: 36415; 80053; 80156; 85025

== ENCOUNTER 2020-05-13 12:04 | Inpatient (IN) | payer MEDICARE ==
[~2020-05-13] VITALS: Ht 160 cm; Wt 71.6 kg
[2020-05-13] MEDS: BUDESONIDE (INHALATION) 180 MCG IH IN SCH (07:25)
[2020-05-13] MEDS ORDERED: AZITHROMYCIN 500MG/ 250ML 250 ML IV ONE (15:30)
[2020-05-13 15:39] LABS: Basophils # (auto) 0 10 ^3/uL (0-0.2); Basophils % (auto) 0.5 % (0.0-2.0); Eosinophils # (auto) 0 10 ^3/uL (0-0.8); Eosinophils % (auto) 0.1 % (0.0-7.0); Hematocrit 35.6 % (36.0-46.0); Hemoglobin 12.1 g/dL (12.2-16.2); Lymphocytes # (auto) 1.1 10 ^3/uL (0.4-5.4); Lymphocytes % (auto) 13.8 % (10.0-50.0); Mean Corpuscular Hemoglobin 31.5 pg (28.0-32.0); Mean Corpuscular Hgb Conc. 33.9 g/dL (32.0-36.0); Neutrophils # (auto) 6.1 10 ^3/uL (1.6-8.6); Neutrophils % (auto) 73.6 % (37.0-80.0); Nucleated Red Blood Cells % 0.1 %; Platelet Count (auto) 252 10^3/uL (140-450); Red Blood Cells 3.83 10^6/uL (4.0-5.20); Red Cell Distribution Width 13.4 % (11.8-14.3); White Blood Cell 8.3 10^3/uL (4.4-10.8)
[2020-05-13 15:59] LABS: INR 1.4 (0.9-1.15); Partial Thromboplastin Time 26.3 sec (23.0-31.2)
[2020-05-13 16:04] LABS: Albumin 2.7 g/dL (3.4-5.0); Calcium 8.8 mg/dL (8.5-10.1); Magnesium 1.7 mg/dL (1.6-2.6); Potassium 4.3 mmol/L (3.5-5.1)
[2020-05-13 16:06] LABS: BUN/Creatinine Ratio 32.2
[2020-05-13 16:11] LABS: Bilirubin, Total 0.5 mg/dL (0.2-1.0); Total Protein 7.3 g/dL (6.4-8.2)
[2020-05-13] MEDS ORDERED: ALBUTEROL SULF HFA 90MCG INH 200DOSE IN PRN (16:45)
[2020-05-13] MEDS ORDERED: HYDROcodone-ACET 5/325MG TAB PO PRN (16:45)
[2020-05-13] MEDS ORDERED: ONDANSETRON HCL 4 MG/2 ML VIAL IV PRN (16:45)
[2020-05-13] MEDS ORDERED: MORPHINE SULF INJ 2 MG/ML SYRINGE 1ML IV PRN ×2 (16:45)
[2020-05-13] MEDS ORDERED: NITROGLYCERIN 0.4 MG SL TAB SL PRN (16:45)
[2020-05-13] MEDS ORDERED: ACETAMINOPHEN 500 MG TAB PO PRN (16:45)
[2020-05-13] MEDS ORDERED: WARF5TAB71 PO (17:25)
[2020-05-13] MEDS ORDERED: AMLO10TA13 PO (17:37)
[2020-05-13] MEDS ORDERED: CITA10TA70 PO (17:37)
[2020-05-13] MEDS ORDERED: TRAZ50TA2 PO (17:37)
[2020-05-13] MEDS ORDERED: GABA100C9 PO (17:37)
[2020-05-13] MEDS ORDERED: METO25TA93 PO (17:37)
[2020-05-13] MEDS ORDERED: OMEP-260 PO (17:37)
[2020-05-13] MEDS ORDERED: ROSU1TAB14 PO (17:37)
[2020-05-13 18:31] LABS: CRP High Sensitivity 17.4 mg/dL (< 0.3)
[2020-05-13] MEDS ORDERED: WARFARIN SODIUM 5 MG TAB PO ONE (19:00)
[2020-05-13] MEDS ORDERED: BUDESONIDE (INHALATION) 0.5 MG/2 ML NEB NEB SCH (22:00)
[2020-05-14] VITALS (7 sets, daily range): BP systolic 150–183; BP diastolic 70–97
--- NOTE | 2020-05-14 01:00 | NUR ---
Telemetry admit from ER RICKEY EASON admitted to Telemetry unit after SBAR not received. Patient oriented to Gladys Wilkerson, RN primary RN, unit, room, bed, and unit policies regarding patient care and visiting hours. Patient now on continuous telemetry monitoring, tele box # [id number] and telemetry reading on arrival to unit is SR. BP on arrival is 168/76. 2200 BP med not given. Will administer and recheck. Patient placed on bedside oxygen 2L, weighed by bedscale and encouraged to call if they need something. All questions and concerns addressed, patient verbalized understanding. Will continue to monitor.
[2020-05-14] MEDS: amLODIPine BESYLATE 5 MG TAB PO SCH ×2 (01:54→22:43)
[2020-05-14] MEDS: ATORVASTATIN 20 MG TAB PO SCH ×2 (01:54→22:37)
[2020-05-14 06:03] LABS: Basophils # (auto) 0 10 ^3/uL (0-0.2); Basophils % (auto) 0.3 % (0.0-2.0); Eosinophils # (auto) 0 10 ^3/uL (0-0.8); Eosinophils % (auto) 0.8 % (0.0-7.0); Hematocrit 34.5 % (36.0-46.0); Hemoglobin 11.5 g/dL (12.2-16.2); Lymphocytes # (auto) 0.9 10 ^3/uL (0.4-5.4); Mean Corpuscular Hemoglobin 30.7 pg (28.0-32.0); Mean Corpuscular Hgb Conc. 33.4 g/dL (32.0-36.0); Mean Corpuscular Volume 91.8 fL (80.0-100.0); Monocytes # (auto) 0.7 10 ^3/uL (0-1.3); Neutrophils # (auto) 3.8 10 ^3/uL (1.6-8.6); Neutrophils % (auto) 69.9 % (37.0-80.0); Platelet Count (auto) 249 10^3/uL (140-450); Red Blood Cells 3.76 10^6/uL (4.0-5.20); Red Cell Distribution Width 13.1 % (11.8-14.3); White Blood Cell 5.4 10^3/uL (4.4-10.8)
[2020-05-14 06:14] LABS: INR 1.51 (0.9-1.15)
[2020-05-14 06:19] LABS: Potassium 3.6 mmol/L (3.5-5.1)
[2020-05-14 06:40] LABS: BUN/Creatinine Ratio 33.3; Calcium 8.7 mg/dL (8.5-10.1)
[2020-05-14] MEDS: BUDESONIDE (INHALATION) 180 MCG IH IN SCH ×2 (07:25→21:17)
--- NOTE | 2020-05-14 07:25 | NUR ---
Respiratory note: SEEN PT AT THIS TIME. PT AWAKE AND ALERT, NO RESP DISTRESS NOTED. HR 88, RR 16, SPO2 92% ON 2L N/C. NO MDI'S AT BEDSIDE. WILL CALL PHARMACY
[2020-05-14] MEDS: cefTRIAXone 1GM/50ML D5W 50 ML IV SCH (09:28)
[2020-05-14] MEDS: CHOLECALCIFEROL (VITD3) 2,000 UNIT CAP PO SCH (09:43)
[2020-05-14] MEDS: AZITHROMYCIN 500MG/ 250ML 250 ML IV SCH (09:43)
[2020-05-14] MEDS: ASCORBIC ACID 1,000 MG TAB PO SCH (09:43)
[2020-05-14] MEDS: ZINC SULFATE 220mg CAP or TAB PO SCH (09:43)
[2020-05-14] MEDS: FAMOTIDINE 20 MG TAB PO SCH (09:43)
[2020-05-14] MEDS: DexAMETHasone SOD PHOS 10MG/1ML VIAL INJ IV SCH (09:43)
[2020-05-14] MEDS ORDERED: ENOXAPARIN SOD 40 MG/0.4 ML SYRINGE SC SCH (10:00)
[2020-05-14] MEDS ORDERED: WARFARIN SODIUM 2.5 MG TAB PO ONE (17:00)
--- NOTE | 2020-05-14 17:00 | NUR ---
patient BP elevated, patient restarting BP meds on PM shift, gabriel c/o pain in face 01/05, patient states she a little anxious about medications that she takes at home not being started, I reassured patient that she would receive them tonight, I told patient I would give her pain medication (she preferred the norco) and give her time to relax, and we would recheck her BP.
--- NOTE | 2020-05-14 18:08 | NUR ---
Patient given specimen cup, placed at bedside, instructed patient that the next time she needs to urinate she can call using the nurse call button, we will help patient to commode and assist in collecting urine sample. Patient slow to respond but did verbalize understanding of instructions.
--- NOTE | 2020-05-14 18:23 | NUR ---
urine sample collected and sent to lab.
--- NOTE | 2020-05-14 19:15 | NUR ---
Opening Shift Note Assumed care of patient, awake and alert. No S/S of distress/SOB or pain. Pt on room air saturating at 94%. Safety measures in place, bed in lowest locked position, bed rails raised x2, call light within reach. All needs addressed at this time. Instructed on POC and to call for assist PRN, will continue to monitor for changes Q1hr and PRN.
[2020-05-14 21:51] LABS: Urine Bacteria FEW /hpf (None Seen); Urine Blood Negative /uL (Negative); Urine Specific Gravity 1.014 (1.001-1.035); Urine WBC 56 /hpf (0 - 5); Urine WBC Clumps PRESENT /hpf (None Seen)
[2020-05-14] MEDS ORDERED: traZODone HCL 50 MG TAB PO SCH (22:00)
[2020-05-14] MEDS: GABAPENTIN 100 MG CAP PO SCH (22:38)
[2020-05-14] MEDS: carBAMazepine 200 MG TAB PO SCH (22:43)
[2020-05-15 05:00] VITALS: BP 139/72
[2020-05-15] MEDS: carBAMazepine 200 MG TAB PO SCH ×2 (05:53→14:03)
--- NOTE | 2020-05-15 07:53 | NUR ---
Pt refusing MDI therapy at this time. Denies SOB, HR 91, RR 20, SPO2 93% on room air. No s/s of distress.
[2020-05-15] MEDS: BUDESONIDE (INHALATION) 180 MCG IH IN SCH (08:00)
[2020-05-15 08:28] LABS: Basophils # (auto) 0.1 10 ^3/uL (0-0.2); Basophils % (auto) 1.2 % (0.0-2.0); Eosinophils # (auto) 0.1 10 ^3/uL (0-0.8); Eosinophils % (auto) 0.9 % (0.0-7.0); Hematocrit 37.1 % (36.0-46.0); Hemoglobin 12.4 g/dL (12.2-16.2); Lymphocytes % (auto) 17.9 % (10.0-50.0); Mean Corpuscular Hemoglobin 30.6 pg (28.0-32.0); Mean Corpuscular Hgb Conc. 33.5 g/dL (32.0-36.0); Mean Corpuscular Volume 91.3 fL (80.0-100.0); Monocytes # (auto) 0.6 10 ^3/uL (0-1.3); Monocytes % (auto) 10.9 % (0.0-12.0); Neutrophils # (auto) 3.8 10 ^3/uL (1.6-8.6); Neutrophils % (auto) 69.1 % (37.0-80.0); Nucleated Red Blood Cells % 0.1 %; Platelet Count (auto) 345 10^3/uL (140-450); Red Blood Cells 4.06 10^6/uL (4.0-5.20); Red Cell Distribution Width 13.1 % (11.8-14.3); White Blood Cell 5.6 10^3/uL (4.4-10.8)
[2020-05-15 08:43] VITALS: BP 152/69
[2020-05-15 08:43] LABS: INR 2.47 (0.9-1.15); Partial Thromboplastin Time 33.6 sec (23.0-31.2); Potassium 3.1 mmol/L (3.5-5.1)
[2020-05-15 09:06] LABS: BUN/Creatinine Ratio 24.3; Calcium 9.3 mg/dL (8.5-10.1)
--- NOTE | 2020-05-15 09:30 | NUR ---
Patient ambulated around room, reminded patient to take it slow and keep her gait steady, she verbalized understanding.
[2020-05-15] MEDS: cefTRIAXone 1GM/50ML D5W 50 ML IV SCH (09:39)
[2020-05-15] MEDS: GABAPENTIN 100 MG CAP PO SCH (09:40)
[2020-05-15] MEDS: AZITHROMYCIN 500MG/ 250ML 250 ML IV SCH (09:40)
[2020-05-15] MEDS: ZINC SULFATE 220mg CAP or TAB PO SCH (09:40)
[2020-05-15] MEDS: FAMOTIDINE 20 MG TAB PO SCH (09:40)
[2020-05-15] MEDS: DexAMETHasone SOD PHOS 10MG/1ML VIAL INJ IV SCH (09:40)
[2020-05-15] MEDS: CHOLECALCIFEROL (VITD3) 2,000 UNIT CAP PO SCH (09:41)
[2020-05-15] MEDS: ASCORBIC ACID 1,000 MG TAB PO SCH (09:41)
--- NOTE | 2020-05-15 09:50 | NUR ---
Assessment Patient is an 84-year-old female. Unable to speak to patient. Assessment was completed with patient son Guy . Prior to admission patient reside at [facility] and functioned with assistance from staff. Patient does not have any medical equipment now. Per Guy patient will return home to her prior living arrangements post discharge and [facility] will transport patient home before 16:00 only Monday-Monday. Informed Guy he has the right to participate in all discharge planning. Patient POA is Mike (son) . Guy verbalized understanding and agrees to discharge plan. Addendum: 05/15/20 at 0951 by MYAH CARRANZA Amended: Links added.
[2020-05-15] MEDS ORDERED: METOPROLOL SUCCINATE XL 50 MG TAB PO SCH (10:00)
[2020-05-15] MEDS ORDERED: LISINOPRIL 10 MG TAB PO SCH (10:00)
[2020-05-15] MEDS ORDERED: CITALOPRAM HYDROBR 20 MG TAB PO SCH (10:00)
[2020-05-15 12:40] VITALS: BP 143/65
[2020-05-15] MEDS ORDERED: POTASSIUM CHL 20 Meq TABLET PO ONE (13:00)
[2020-05-15 13:40] VITALS: BP 148/88
--- NOTE | 2020-05-15 13:51 | NUR ---
report given to [facility], [facility] attempting to find a road oiling truck driver for patient, they state "out road oiling truck driver isn't in today so let me see if we can have someone pick her up".
--- NOTE | 2020-05-15 14:00 | NUR ---
Patient transferred self to commode without difficulty.
--- NOTE | 2020-05-15 14:03 | NUR ---
per facility nurse, [facility] staff will come pick her up in 30 mins
--- NOTE | 2020-05-15 14:22 | NUR ---
Patient given thorough instructions on discharge, informed that a physical therapist may call her to schedule visits, and instructed on fall precautions, covid isolation and medications, patient verbalized understanding and stated that she would also give the information packet to the nurse at the facility to arrange the proper transport. Patient IV discontinued with catheter intact. Patient tele box returned to cardiac ICU.
--- NOTE | 2020-05-15 14:45 | NUR ---
D/C planning Per social service consult for home health physical therapy. Patient family did not have a home health preference. Faxed clinical information to [facility] Ph: [phone]. Per Aline with [facility] Ph: [phone] patient has been accepted and service to start within 24-48hrs upon d.c day.
--- NOTE | 2020-05-15 15:12 | NUR ---
Patient discharged. Picked up by [facility] staff, patient had all belongings with her.
== END 2020-05-15 15:08 | disposition home health service (06) | DRG 177 ==
LOC: EDBD 12:04 → ER 12:04 → TELE-CENTR 12:05 → TELE-WESTW 05-14 00:15
PROVIDERS: ADMIT Nurse Practitioner Acute Care; ATTEND Internal Medicine
DX: U07.1 COVID-19 (principal); J12.89 Other viral pneumonia; E44.0 Moderate protein-calorie malnutrition; S43.401A Unspecified sprain of right shoulder joint, initial encounter; N18.30 Chronic kidney disease, stage 3 unspecified; E78.5 Hyperlipidemia, unspecified; M32.9 Systemic lupus erythematosus, unspecified; G50.0 Trigeminal neuralgia; F32.9 Major depressive disorder, single episode, unspecified; F41.9 Anxiety disorder, unspecified; I12.9 Hypertensive chronic kidney disease with stage 1 through stage 4 chronic kidney disease, or unspecified chronic kidney disease; W01.0XXA Fall on same level from slipping, tripping and stumbling without subsequent striking against object, initial encounter; Z79.899 Other long term (current) drug therapy; Z68.28 Body mass index [BMI] 28.0-28.9, adult; Z80.0 Family history of malignant neoplasm of digestive organs; Y92.120 Kitchen in nursing home as the place of occurrence of the external cause; Z80.1 Family history of malignant neoplasm of trachea, bronchus and lung; Z82.0 Family history of epilepsy and other diseases of the nervous system; Z82.3 Family history of stroke; Z82.49 Family history of ischemic heart disease and other diseases of the circulatory system; Z90.710 Acquired absence of both cervix and uterus; Z86.73 Personal history of transient ischemic attack (TIA), and cerebral infarction without residual deficits; Y93.89 Activity, other specified; Y99.8 Other external cause status; Y92.128 Other place in nursing home as the place of occurrence of the external cause
CPT/HCPCS: 36415; 70450; 71045; 72125; 73200; 80048; 80053; 81001; 82728; 83605; 83615; 83735; 84443; 84484; 85025; 85379; 85610; 85730; 86141; 87040; 87081; 87426; 93005; 94640; 96365; G0378; J0696; J1100

== ENCOUNTER → 2020-06-04 | Outpatient (CLI) | payer MEDICARE ==
[~2020-06-04] MED LIST changes: -AML5T PO; +AMLO10TA13 PO; -CITA-30 PO; +CITA10TA70 PO; +GABA100C9 PO; -METO-6 PO; +METO25TA93 PO; +OMEP-260 PO; -OMEP20TA PO; -ROSU10TA16; +ROSU1TAB14 PO; +TRAZ50TA2 PO; -WARF10TA20 PO
[2020-06-04 10:58] LABS: Basophils # (auto) 0.1 10 ^3/uL (0-0.2); Basophils % (auto) 1.1 % (0.0-2.0); Eosinophils # (auto) 0.1 10 ^3/uL (0-0.8); Eosinophils % (auto) 2.4 % (0.0-7.0); Hematocrit 33.2 % (36.0-46.0); Hemoglobin 11.1 g/dL (12.2-16.2); Lymphocytes # (auto) 1.4 10 ^3/uL (0.4-5.4); Lymphocytes % (auto) 27.1 % (10.0-50.0); Mean Corpuscular Hemoglobin 31.4 pg (28.0-32.0); Mean Corpuscular Hgb Conc. 33.5 g/dL (32.0-36.0); Mean Corpuscular Volume 93.8 fL (80.0-100.0); Monocytes # (auto) 0.5 10 ^3/uL (0-1.3); Monocytes % (auto) 9.6 % (0.0-12.0); Neutrophils # (auto) 3.1 10 ^3/uL (1.6-8.6); Neutrophils % (auto) 59.8 % (37.0-80.0); Nucleated Red Blood Cells % 0.1 %; Platelet Count (auto) 188 10^3/uL (140-450); Red Blood Cells 3.54 10^6/uL (4.0-5.20); Red Cell Distribution Width 14.4 % (11.8-14.3); White Blood Cell 5.1 10^3/uL (4.4-10.8)
[2020-06-04 11:09] LABS: Albumin 2.8 g/dL (3.4-5.0); Calcium 9.3 mg/dL (8.5-10.1); Potassium 4.2 mmol/L (3.5-5.1)
[2020-06-04 11:12] LABS: BUN/Creatinine Ratio 27.1; Bilirubin, Total 0.3 mg/dL (0.2-1.0); Total Protein 7.1 g/dL (6.4-8.2)
== END | disposition home or self-care (01) ==
LOC: LAB 10:30
PROVIDERS: ATTEND Internal Medicine
DX: I10 Essential (primary) hypertension (principal); G50.0 Trigeminal neuralgia; R42 Dizziness and giddiness
CPT/HCPCS: 36415; 80053; 80156; 85025

== ENCOUNTER → 2020-10-08 | Outpatient (CLI) | payer MEDICARE ==
[~2020-10-08] MED LIST changes: +AMLO-496 PO; -AMLO10TA13 PO; -LISI-648 PO; +LISI-716 PO
[2020-10-08 13:36] LABS: Basophils # (auto) 0 10 ^3/uL (0-0.2); Basophils % (auto) 0.6 % (0.0-2.0); Eosinophils # (auto) 0.1 10 ^3/uL (0-0.8); Eosinophils % (auto) 1.4 % (0.0-7.0); Hematocrit 38.7 % (36.0-46.0); Hemoglobin 13.1 g/dL (12.2-16.2); Lymphocytes # (auto) 1.3 10 ^3/uL (0.4-5.4); Mean Corpuscular Hemoglobin 31.5 pg (28.0-32.0); Mean Corpuscular Volume 92.7 fL (80.0-100.0); Monocytes # (auto) 0.6 10 ^3/uL (0-1.3); Monocytes % (auto) 10.4 % (0.0-12.0); Neutrophils # (auto) 3.4 10 ^3/uL (1.6-8.6); Neutrophils % (auto) 63.6 % (37.0-80.0); Platelet Count (auto) 148 10^3/uL (140-450); Red Blood Cells 4.17 10^6/uL (4.0-5.20); Red Cell Distribution Width 13.1 % (11.8-14.3); White Blood Cell 5.3 10^3/uL (4.4-10.8)
[2020-10-08 14:09] LABS: Albumin 3.3 g/dL (3.4-5.0); Calcium 9.1 mg/dL (8.5-10.1); Potassium 3.8 mmol/L (3.5-5.1)
[2020-10-08 14:12] LABS: BUN/Creatinine Ratio 27.2; Bilirubin, Total 0.3 mg/dL (0.2-1.0); Total Protein 7.6 g/dL (6.4-8.2)
== END | disposition home or self-care (01) ==
LOC: LAB 13:22
PROVIDERS: ATTEND Internal Medicine
DX: C50.911 Malignant neoplasm of unspecified site of right female breast (principal); I82.891 Chronic embolism and thrombosis of other specified veins; G50.0 Trigeminal neuralgia
CPT/HCPCS: 36415; 80053; 83615; 85025; 86300

== ENCOUNTER 2021-01-01 11:58 | Day surgery (SDC) | payer MEDICARE ==
[2020-12-29 12:27] LABS: Urine Bacteria NONE SEEN /hpf (None Seen); Urine Blood Negative /uL (Negative); Urine Specific Gravity 1.016 (1.001-1.035); Urine WBC 4 /hpf (0 - 5)
[2020-12-29 12:30] LABS: Basophils # (auto) 0 10 ^3/uL (0-0.2); Basophils % (auto) 0.4 % (0.0-2.0); Eosinophils # (auto) 0.2 10 ^3/uL (0-0.8); Hematocrit 38.3 % (36.0-46.0); Hemoglobin 13.3 g/dL (12.2-16.2); Lymphocytes # (auto) 1.7 10 ^3/uL (0.4-5.4); Lymphocytes % (auto) 31.2 % (10.0-50.0); Mean Corpuscular Hemoglobin 32.2 pg (28.0-32.0); Mean Corpuscular Hgb Conc. 34.8 g/dL (32.0-36.0); Mean Corpuscular Volume 92.5 fL (80.0-100.0); Monocytes # (auto) 0.5 10 ^3/uL (0-1.3); Monocytes % (auto) 8.7 % (0.0-12.0); Neutrophils # (auto) 3.1 10 ^3/uL (1.6-8.6); Neutrophils % (auto) 55.7 % (37.0-80.0); Nucleated Red Blood Cells % 0.1 %; Red Blood Cells 4.14 10^6/uL (4.0-5.20); Red Cell Distribution Width 13.3 % (11.8-14.3); White Blood Cell 5.5 10^3/uL (4.4-10.8)
[2020-12-29 13:00] LABS: Albumin 3.3 g/dL (3.4-5.0); Calcium 9.1 mg/dL (8.5-10.1); Potassium 4.5 mmol/L (3.5-5.1)
[2020-12-29 13:04] LABS: BUN/Creatinine Ratio 20.9; Bilirubin, Total 0.3 mg/dL (0.2-1.0); Total Protein 7.5 g/dL (6.4-8.2)
[~2021-01-01] VITALS: Ht 162.6 cm; Wt 53.5 kg
[~2021-01-01 11:58] MED LIST changes: +BIOT50007 PO; +CALC667C5 PO; +CYAN1TAB14 PO; +HYDR-4188 PO; +MULT1CHW76 PO; -OMEP-260 PO; +PANT40TA2 PO; -SUCR1TAB22 PO
[2021-01-01] MEDS ORDERED: diphenhdrAMINE HCL 50 MG/1 ML VL ONE (12:43)
[2021-01-01] MEDS ORDERED: SODIUM CHLORIDE LOCK 10 ML ONE (12:43)
[2021-01-01] MEDS: fentaNYL CITRATE 100 MCG/2 ML VL ONE ×2 (13:26→13:32)
[2021-01-01] MEDS: MIDAZOLAM HCL 5 MG/ML-1ML VIAL ONE ×3 (13:26→13:41)
[2021-01-01 14:20] VITALS: BP 141/54
== END 2021-01-01 14:45 | disposition home or self-care (01) ==
LOC: GI 11:58
PROVIDERS: ATTEND Internal Medicine Gastroenterology
DX: R19.4 Change in bowel habit (principal); D12.2 Benign neoplasm of ascending colon; D12.3 Benign neoplasm of transverse colon; K57.30 Diverticulosis of large intestine without perforation or abscess without bleeding; K63.89 Other specified diseases of intestine; K44.9 Diaphragmatic hernia without obstruction or gangrene; I10 Essential (primary) hypertension; F41.9 Anxiety disorder, unspecified; F32.9 Major depressive disorder, single episode, unspecified; Z80.8 Family history of malignant neoplasm of other organs or systems; Z86.010 Personal history of colon polyps; Z79.899 Other long term (current) drug therapy; Z86.73 Personal history of transient ischemic attack (TIA), and cerebral infarction without residual deficits; Z90.10 Acquired absence of unspecified breast and nipple; Z85.3 Personal history of malignant neoplasm of breast; Z87.891 Personal history of nicotine dependence; Z80.2 Family history of malignant neoplasm of other respiratory and intrathoracic organs; Z80.0 Family history of malignant neoplasm of digestive organs; Z20.822 Contact with and (suspected) exposure to COVID-19; Z98.890 Other specified postprocedural states
CPT/HCPCS: 36415; 45380; 45385; 80053; 81001; 85025; J1200; J2250; J3010; J7030; U0003; G0500

== ENCOUNTER → 2021-01-05 | Outpatient (CLI) | payer MEDICARE | END | disposition home or self-care (01) | LOC: XY 08:44 | PROVIDERS: ATTEND Internal Medicine | DX: C50.919 Malignant neoplasm of unspecified site of unspecified female breast (principal); M89.8X9 Other specified disorders of bone, unspecified site | CPT/HCPCS: 78306; A9503 ==

== ENCOUNTER → 2021-02-16 | Outpatient (CLI) | payer MEDICARE ==
[2021-02-16 11:19] LABS: Basophils # (auto) 0 10 ^3/uL (0-0.2); Basophils % (auto) 0.9 % (0.0-2.0); Eosinophils # (auto) 0.2 10 ^3/uL (0-0.8); Eosinophils % (auto) 3.5 % (0.0-7.0); Hematocrit 37.7 % (36.0-46.0); Hemoglobin 12.5 g/dL (12.2-16.2); Lymphocytes # (auto) 1.2 10 ^3/uL (0.4-5.4); Lymphocytes % (auto) 27.3 % (10.0-50.0); Mean Corpuscular Hemoglobin 30.5 pg (28.0-32.0); Mean Corpuscular Hgb Conc. 33.1 g/dL (32.0-36.0); Mean Corpuscular Volume 92.2 fL (80.0-100.0); Monocytes # (auto) 0.3 10 ^3/uL (0-1.3); Monocytes % (auto) 7.4 % (0.0-12.0); Neutrophils # (auto) 2.7 10 ^3/uL (1.6-8.6); Neutrophils % (auto) 60.9 % (37.0-80.0); Red Blood Cells 4.09 10^6/uL (4.0-5.20); White Blood Cell 4.5 10^3/uL (4.4-10.8)
[2021-02-16 11:46] LABS: Free T4 (Free Thyroxine) 1.03 ng/dL (0.89-1.76)
[2021-02-16 11:47] LABS: Folate (Folic Acid) > 24.00 ng/mL (5.38-24)
[2021-02-16 11:50] LABS: Albumin 3.4 g/dL (3.4-5.0); Calcium 9.6 mg/dL (8.5-10.1); Potassium 4.2 mmol/L (3.5-5.1)
[2021-02-16 11:55] LABS: BUN/Creatinine Ratio 19.6; Bilirubin, Total 0.3 mg/dL (0.2-1.0); Total Protein 7.3 g/dL (6.4-8.2)
[2021-02-16 11:56] LABS: Thyroid Stimulating Hormone 1.31 uIU/mL (0.358-3.74)
[2021-02-18 09:49] LABS: Cholesterol 198 mg/dL (< 200)
[2021-02-18 09:51] LABS: HDL Cholesterol 83 mg/dL (40-59); LDL Cholesterol 99 mg/dL (< 100); Triglycerides 111 mg/dL (< 150)
== END | disposition home or self-care (01) ==
LOC: LAB 10:02
PROVIDERS: ATTEND Internal Medicine
DX: C50.911 Malignant neoplasm of unspecified site of right female breast (principal); I82.891 Chronic embolism and thrombosis of other specified veins; Z79.899 Other long term (current) drug therapy; I10 Essential (primary) hypertension
CPT/HCPCS: 36415; 80053; 80061; 80202; 81241; 82607; 82746; 83090; 83615; 84439; 84443; 85025; 85301; 85302; 85305; 85306; 86147; 86225; 86235; 86300

== ENCOUNTER → 2021-03-16 | Outpatient (CLI) | payer MEDICARE | END | disposition home or self-care (01) | LOC: US 10:06 | PROVIDERS: ATTEND Internal Medicine | DX: N63.12 Unspecified lump in the right breast, upper inner quadrant (principal); F32.9 Major depressive disorder, single episode, unspecified; F41.9 Anxiety disorder, unspecified; F99 Mental disorder, not otherwise specified; Z86.73 Personal history of transient ischemic attack (TIA), and cerebral infarction without residual deficits; Z85.3 Personal history of malignant neoplasm of breast; Z90.710 Acquired absence of both cervix and uterus; Z90.10 Acquired absence of unspecified breast and nipple; Z79.899 Other long term (current) drug therapy; Z98.890 Other specified postprocedural states | CPT/HCPCS: 19083; 76642; 76942 ==

== ENCOUNTER → 2021-08-03 | Outpatient (CLI) | payer MEDICARE ==
[2021-08-03 10:41] LABS: Basophils # (auto) 0 10 ^3/uL (0-0.2); Basophils % (auto) 0.9 % (0.0-2.0); Eosinophils # (auto) 0.1 10 ^3/uL (0-0.8); Eosinophils % (auto) 1.5 % (0.0-7.0); Hematocrit 35.8 % (36.0-46.0); Hemoglobin 12.2 g/dL (12.2-16.2); Lymphocytes # (auto) 1.4 10 ^3/uL (0.4-5.4); Lymphocytes % (auto) 28.4 % (10.0-50.0); Mean Corpuscular Hemoglobin 31.8 pg (28.0-32.0); Mean Corpuscular Hgb Conc. 34.1 g/dL (32.0-36.0); Mean Corpuscular Volume 93.3 fL (80.0-100.0); Monocytes # (auto) 0.5 10 ^3/uL (0-1.3); Monocytes % (auto) 9.8 % (0.0-12.0); Neutrophils # (auto) 2.8 10 ^3/uL (1.6-8.6); Neutrophils % (auto) 59.4 % (37.0-80.0); Nucleated Red Blood Cells % 0.1 %; Red Blood Cells 3.84 10^6/uL (4.0-5.20); Red Cell Distribution Width 13.7 % (11.8-14.3); White Blood Cell 4.8 10^3/uL (4.4-10.8)
[2021-08-03 11:36] LABS: Potassium 4.8 mmol/L (3.5-5.1)
[2021-08-03 11:56] LABS: Albumin 3.1 g/dL (3.4-5.0); BUN/Creatinine Ratio 22.3; Bilirubin, Total 0.6 mg/dL (0.2-1.0); Calcium 9.7 mg/dL (8.5-10.1); Total Protein 6.5 g/dL (6.4-8.2)
== END | disposition home or self-care (01) ==
LOC: LAB 09:50
PROVIDERS: ATTEND Internal Medicine
DX: F32.9 Major depressive disorder, single episode, unspecified (principal); I10 Essential (primary) hypertension; G50.0 Trigeminal neuralgia
CPT/HCPCS: 36415; 80053; 84443; 85025

== ENCOUNTER → 2021-11-25 | Outpatient (CLI) | payer MEDICARE ==
[2021-11-25 10:57] LABS: Urine Bacteria NONE SEEN /hpf (None Seen); Urine Blood 2+ /uL (Negative); Urine Budding Yeast LOADED /hpf (None Seen); Urine Specific Gravity 1.018 (1.001-1.035); Urine WBC 3523 /hpf (0 - 5); Urine WBC Clumps PRESENT /hpf (None Seen)
== END | disposition home or self-care (01) ==
LOC: LAB 10:07
PROVIDERS: ATTEND Internal Medicine
DX: N32.89 Other specified disorders of bladder (principal)
CPT/HCPCS: 81001

== ENCOUNTER → 2021-12-09 | Outpatient (CLI) | payer MEDICARE, OTHER | END | disposition home or self-care (01) | LOC: LAB 14:54 | PROVIDERS: ATTEND Urology | DX: N39.0 Urinary tract infection, site not specified (principal) | CPT/HCPCS: 87086 ==

== ENCOUNTER → 2021-12-23 | Outpatient (CLI) | payer MEDICARE ==
[2021-12-23 14:59] LABS: Basophils # (auto) 0 10 ^3/uL (0-0.2); Eosinophils # (auto) 0.2 10 ^3/uL (0-0.8); Lymphocytes # (auto) 1.5 10 ^3/uL (0.4-5.4); Mean Corpuscular Hemoglobin 30.2 pg (28.0-32.0); Mean Corpuscular Hgb Conc. 32.2 g/dL (32.0-36.0); Monocytes # (auto) 0.4 10 ^3/uL (0-1.3); Monocytes % (auto) 9.7 % (0.0-12.0); Neutrophils # (auto) 2.3 10 ^3/uL (1.6-8.6)
[2021-12-23 15:03] LABS: Basophils % (auto) 1.1 % (0.0-2.0); Eosinophils % (auto) 4.9 % (0.0-7.0); Hematocrit 41.1 % (36.0-46.0); Hemoglobin 13.2 g/dL (12.2-16.2); Lymphocytes % (auto) 32.9 % (10.0-50.0); Mean Corpuscular Volume 93.9 fL (80.0-100.0); Neutrophils % (auto) 51.4 % (37.0-80.0); Red Blood Cells 4.37 10^6/uL (4.0-5.20); Red Cell Distribution Width 13.8 % (11.8-14.3); White Blood Cell 4.5 10^3/uL (4.4-10.8)
[2021-12-23 15:56] LABS: Albumin 3.6 g/dL (3.4-5.0); Calcium 9.6 mg/dL (8.5-10.1); Potassium 4.4 mmol/L (3.5-5.1)
[2021-12-23 15:59] LABS: BUN/Creatinine Ratio 23.6; Bilirubin, Total 0.3 mg/dL (0.2-1.0); Total Protein 7.4 g/dL (6.4-8.2)
== END | disposition home or self-care (01) ==
LOC: LAB 14:40
PROVIDERS: ATTEND Internal Medicine
DX: R21 Rash and other nonspecific skin eruption (principal); I10 Essential (primary) hypertension
CPT/HCPCS: 36415; 80053; 85025; 86704; 86705; 86706; 86803; 87340

== ENCOUNTER → 2021-12-28 | Outpatient (CLI) | payer MEDICARE ==
[2021-12-28 10:52] LABS: Basophils % (auto) 0.7 % (0.0-2.0); Eosinophils % (auto) 5.1 % (0.0-7.0); Lymphocytes # (auto) 1.3 10 ^3/uL (0.4-5.4); Lymphocytes % (auto) 29.5 % (10.0-50.0); Monocytes # (auto) 0.4 10 ^3/uL (0-1.3); Monocytes % (auto) 8.2 % (0.0-12.0); Neutrophils # (auto) 2.5 10 ^3/uL (1.6-8.6); Neutrophils % (auto) 56.5 % (37.0-80.0); White Blood Cell 4.4 10^3/uL (4.4-10.8)
[2021-12-28 10:53] LABS: Basophils # (auto) 0 10 ^3/uL (0-0.2); Eosinophils # (auto) 0.2 10 ^3/uL (0-0.8); Hematocrit 39.5 % (36.0-46.0); Hemoglobin 12.8 g/dL (12.2-16.2); Mean Corpuscular Hemoglobin 29.9 pg (28.0-32.0); Mean Corpuscular Hgb Conc. 32.5 g/dL (32.0-36.0); Mean Corpuscular Volume 92.2 fL (80.0-100.0); Red Blood Cells 4.29 10^6/uL (4.0-5.20); Red Cell Distribution Width 13.3 % (11.8-14.3)
[2021-12-28 11:22] LABS: Albumin 3.5 g/dL (3.4-5.0); Calcium 9.3 mg/dL (8.5-10.1); Potassium 4.5 mmol/L (3.5-5.1)
[2021-12-28 11:25] LABS: BUN/Creatinine Ratio 23.9; Bilirubin, Total 0.4 mg/dL (0.2-1.0); Total Protein 7.1 g/dL (6.4-8.2)
== END | disposition home or self-care (01) ==
LOC: LAB 10:38
PROVIDERS: ATTEND Internal Medicine
DX: C50.911 Malignant neoplasm of unspecified site of right female breast (principal); I82.891 Chronic embolism and thrombosis of other specified veins
CPT/HCPCS: 36415; 80053; 83615; 85025; 86300

== ENCOUNTER → 2021-12-31 | Outpatient (CLI) | payer MEDICARE ==
[2021-12-31 09:07] LABS: Urine Bacteria NONE SEEN /hpf (None Seen); Urine Blood Negative /uL (Negative); Urine Mucus FEW (None Seen); Urine Specific Gravity 1.013 (1.001-1.035); Urine WBC 11 /hpf (0 - 5)
== END | disposition home or self-care (01) ==
LOC: LAB 07:22
PROVIDERS: ATTEND Urology
DX: N39.0 Urinary tract infection, site not specified (principal)
CPT/HCPCS: 81001; 87086

== ENCOUNTER 2023-10-14 01:04 | Emergency (ER) | payer MEDICARE ==
[~2023-10-14] VITALS: Ht 152.4 cm; Wt 50.0 kg
[~2023-10-14 01:04] MED LIST changes: -AMLO-496 PO; +AMLO1TAB23 PO; +CITA10TA5 PO; -CITA10TA70 PO; +GABA-1308 PO; -GABA100C9 PO; -HYDR-4188 PO; +HYDR-4491 PO; -LISI-716 PO; +LISI10TA34 PO; -ROSU1TAB14 PO; +ROSU20TA56 PO; +TRAZ-227 PO; -TRAZ50TA2 PO; +WARF-66 PO; -WARF5TAB71 PO
[2023-10-14 01:35] VITALS: PULSE 73; RESP 14; O2SAT 96
[2023-10-14] MEDS ORDERED: HYDR-4798 PO (02:28)
[2023-10-14] MEDS: MORPHINE SULFATE 4 MG/ML SYR/VIAL IV ONE (03:03)
[2023-10-14 05:00] VITALS: BP 144/52; PULSE 73; RESP 13; TEMP 97.6; O2SAT 94
== END 2023-10-14 06:48 | disposition home or self-care (01) ==
LOC: ER 01:04 → EDBD 01:04 → ER 06:48
DX: G89.18 Other acute postprocedural pain (principal); M79.671 Pain in right foot; I10 Essential (primary) hypertension; E78.5 Hyperlipidemia, unspecified; F41.9 Anxiety disorder, unspecified; F32.9 Major depressive disorder, single episode, unspecified; M19.90 Unspecified osteoarthritis, unspecified site; Z86.73 Personal history of transient ischemic attack (TIA), and cerebral infarction without residual deficits; Z98.890 Other specified postprocedural states; Z79.899 Other long term (current) drug therapy
CPT/HCPCS: 93005; 96374; 99285; J2270

== ENCOUNTER → 2023-11-24 | Outpatient (CLI) | payer MEDICARE ==
[~2023-11-24] MED LIST changes: +HYDR-4798 PO
[2023-11-24 10:11] LABS: Basophils # (auto) 0 10 ^3/uL (0-0.2); Basophils % (auto) 0.4 % (0.0-2.0); Eosinophils # (auto) 0.1 10 ^3/uL (0-0.8); Eosinophils % (auto) 2.3 % (0.0-7.0); Hematocrit 40.1 % (36.0-46.0); Hemoglobin 13.5 g/dL (12.2-16.2); Lymphocytes # (auto) 1.1 10 ^3/uL (0.4-5.4); Lymphocytes % (auto) 16.4 % (10.0-50.0); Mean Corpuscular Hemoglobin 31.8 pg (28.0-32.0); Mean Corpuscular Hgb Conc. 33.8 g/dL (32.0-36.0); Monocytes # (auto) 0.4 10 ^3/uL (0-1.3); Monocytes % (auto) 5.8 % (0.0-12.0); Neutrophils # (auto) 4.9 10 ^3/uL (1.6-8.6); Neutrophils % (auto) 75.1 % (37.0-80.0); Nucleated Red Blood Cells % 0.1 %; Red Blood Cells 4.26 10^6/uL (4.0-5.20); Red Cell Distribution Width 13.5 % (11.8-14.3); White Blood Cell 6.5 10^3/uL (4.4-10.8)
[2023-11-24 10:53] LABS: Triglycerides 112 mg/dL (< 150)
[2023-11-24 10:54] LABS: Alanine Aminotransferase 15 U/L (7-40); Albumin 4.3 g/dL (3.2-4.8); Alkaline Phosphatase 127 U/L (46-116); Anion Gap 5 (5-15); Aspartate Aminotransferase 29 U/L (13-40); BUN/Creatinine Ratio 27.2 (10.0-20.0); Bilirubin, Total 0.5 mg/dL (0.2-1.0); Blood Urea Nitrogen 25 mg/dL (9-23); Calcium 10.6 mg/dL (8.5-10.1); Carbon Dioxide 31 mmol/L (20-30); Chloride 105 mmol/L (98-107); Cholesterol 213 mg/dL (< 200); Glucose 104 mg/dL (74-106); HDL Cholesterol 82 mg/dL (40-59); LDL Cholesterol 107 mg/dL (< 100); Potassium 4.7 mmol/L (3.5-5.1); Sodium 141 mmol/L (136-145); Total Protein 7.3 g/dL (5.7-8.2)
[2023-11-24 11:10] LABS: Erythrocyte Sedimentation Rate 62 mm/hr (0-20)
[2023-11-24 11:21] LABS: Urine Bacteria None Seen /hpf (None Seen)
[2023-11-24 11:33] LABS: Urine Blood Negative /uL (Negative); Urine Clarity Clear (Clear); Urine Color Light-Yellow (Yellow); Urine Hyaline Cast FEW /lpf (0 - 2); Urine Protein, UAD Negative (Negative); Urine Specific Gravity 1.012 (1.001-1.035); Urine Urobilinogen Normal (Negative); Urine WBC 5 /hpf (0 - 5)
[2023-11-25 08:06] LABS: Complement C3 149 mg/dL (82-167); Rheumatoid Arthritis Factor <10.0 IU/mL (<14.0); Thyroid Peroxidase (TPO) Ab 12 IU/mL (0-34)
[2023-11-25 09:07] LABS: CA 27.29 35.5 U/mL (0.0-38.6)
[2023-11-25 11:07] LABS: Anti-Nuclear Antibody Direct Positive (Negative); Anti-dsDNA Antibody 37 IU/mL (0-9); Antiscleroderma-70 Antibody <0.2 AI (0.0-0.9); RNP Antibody 0.6 AI (0.0-0.9); Sjogren's Anti-SS-A Antibody <0.2 AI (0.0-0.9); Sjogren's Anti-SS-B Antibody <0.2 AI (0.0-0.9); Smith Antibody <0.2 AI (0.0-0.9)
[2023-11-27 13:07] LABS: Anti-Striated Muscle Antibody Negative (Neg:<1:100)
[2023-11-27 14:06] LABS: Antiparietal Cell Antibody 3.3 Units (0.0-20.0)
== END | disposition home or self-care (01) ==
LOC: LAB 09:24
PROVIDERS: ATTEND Internal Medicine
DX: I10 Essential (primary) hypertension (principal); G50.0 Trigeminal neuralgia; Z79.899 Other long term (current) drug therapy; Z85.3 Personal history of malignant neoplasm of breast
CPT/HCPCS: 36415; 80053; 80061; 80156; 81001; 82306; 84439; 84443; 85025; 85652; 86160; 86225; 86235; 86300; 86376; 86431

== ENCOUNTER → 2024-01-02 | Outpatient (CLI) | payer MEDICARE ==
[2024-01-02 10:52] LABS: Basophils # (auto) 0 10 ^3/uL (0-0.2); Basophils % (auto) 0.6 % (0.0-2.0); Eosinophils # (auto) 0.1 10 ^3/uL (0-0.8); Hematocrit 38.1 % (36.0-46.0); Hemoglobin 12.9 g/dL (12.2-16.2); Lymphocytes # (auto) 1.3 10 ^3/uL (0.4-5.4); Lymphocytes % (auto) 22.1 % (10.0-50.0); Mean Corpuscular Hemoglobin 31.3 pg (28.0-32.0); Mean Corpuscular Hgb Conc. 33.8 g/dL (32.0-36.0); Mean Corpuscular Volume 92.5 fL (80.0-100.0); Monocytes # (auto) 0.4 10 ^3/uL (0-1.3); Monocytes % (auto) 7.4 % (0.0-12.0); Neutrophils # (auto) 4.1 10 ^3/uL (1.6-8.6); Neutrophils % (auto) 67.9 % (37.0-80.0); Nucleated Red Blood Cells % 0.1 %; Red Blood Cells 4.12 10^6/uL (4.0-5.20); Red Cell Distribution Width 13.8 % (11.8-14.3)
[2024-01-02 11:03] LABS: Urine Bacteria FEW /hpf (None Seen); Urine Blood TRACE /uL (Negative); Urine Clarity Turbid (Clear); Urine Color Light-Yellow (Yellow); Urine Mucus FEW (None Seen); Urine Protein, UAD TRACE (Negative); Urine Specific Gravity 1.013 (1.001-1.035); Urine Urobilinogen Normal (Negative); Urine WBC 606 /hpf (0 - 5); Urine WBC Clumps PRESENT /hpf (None Seen); Urine pH 5.5 (5.0-9.0)
[2024-01-02 11:30] LABS: Protein, Urine 21.7 mg/dL (0.0-11.9)
[2024-01-02 11:32] LABS: Creatinine, Urine 69.87 mg/dL (30.0-125.0); Urine Protein/Creatinine Ratio 0.31
[2024-01-02 11:35] LABS: Alanine Aminotransferase 13 U/L (7-40); Albumin 4.3 g/dL (3.2-4.8); Alkaline Phosphatase 128 U/L (46-116); Anion Gap 6 (5-15); Aspartate Aminotransferase 24 U/L (13-40); BUN/Creatinine Ratio 28.1 (10.0-20.0); Blood Urea Nitrogen 32 mg/dL (9-23); CRP High Sensitivity 0.41 mg/dL (<1.0); Calcium 10.1 mg/dL (8.7-10.4); Carbon Dioxide 31 mmol/L (20-30); Chloride 102 mmol/L (98-107); Glucose 79 mg/dL (74-106); Potassium 4.3 mmol/L (3.5-5.1); Sodium 139 mmol/L (136-145)
[2024-01-02 11:36] LABS: Bilirubin, Total 0.5 mg/dL (0.2-1.0); Total Protein 7.3 g/dL (5.7-8.2)
[2024-01-02 11:44] LABS: Erythrocyte Sedimentation Rate 53 mm/hr (0-20)
== END | disposition home or self-care (01) ==
LOC: LAB 10:15
PROVIDERS: ATTEND Internal Medicine
DX: C50.911 Malignant neoplasm of unspecified site of right female breast (principal); I82.891 Chronic embolism and thrombosis of other specified veins; Z79.899 Other long term (current) drug therapy
CPT/HCPCS: 36415; 80053; 81001; 82306; 82570; 83615; 84156; 85025; 85652; 86141; 86160; 86225; 86300

== ENCOUNTER 2024-01-27 11:32 | Inpatient (IN) | payer MEDICARE ==
[~2024-01-27] VITALS: Ht 152.4 cm; Wt 49.2 kg
[2024-01-27 12:38] LABS: Basophils # (auto) 0 10 ^3/uL (0-0.2); Basophils % (auto) 0.5 % (0.0-2.0); Eosinophils # (auto) 0.1 10 ^3/uL (0-0.8); Eosinophils % (auto) 0.8 % (0.0-7.0); Hematocrit 36.9 % (36.0-46.0); Hemoglobin 12.3 g/dL (12.2-16.2); Lymphocytes % (auto) 14.4 % (10.0-50.0); Mean Corpuscular Hemoglobin 31.3 pg (28.0-32.0); Mean Corpuscular Hgb Conc. 33.4 g/dL (32.0-36.0); Mean Corpuscular Volume 93.8 fL (80.0-100.0); Monocytes # (auto) 0.5 10 ^3/uL (0-1.3); Monocytes % (auto) 7.1 % (0.0-12.0); Neutrophils # (auto) 5.5 10 ^3/uL (1.6-8.6); Neutrophils % (auto) 77.2 % (37.0-80.0); Platelet Count (auto) 186 10^3/uL (140-450); Red Blood Cells 3.93 10^6/uL (4.0-5.20); Red Cell Distribution Width 13.9 % (11.8-14.3); White Blood Cell 7.2 10^3/uL (4.4-10.8)
[2024-01-27 12:45] LABS: Chloride 105 mmol/L (98-107); Potassium 4.6 mmol/L (3.5-5.1); Sodium 138 mmol/L (136-145)
[2024-01-27 12:46] LABS: Anion Gap 3 (5-15); Carbon Dioxide 30 mmol/L (20-30)
[2024-01-27 12:51] LABS: BUN/Creatinine Ratio 25.7 (10.0-20.0); Blood Urea Nitrogen 29 mg/dL (9-23); Glucose 103 mg/dL (74-106)
[2024-01-27] MEDS ORDERED: DOCUSATE SOD 100 MG CAP PO PRN (16:30)
[2024-01-27] MEDS ORDERED: NITROGLYCERIN 0.4 MG SL TAB SL PRN (16:30)
[2024-01-27 17:51] VITALS: PULSE 84; RESP 16; O2SAT 99
[2024-01-27] MEDS: SODIUM CHLORIDE 0.9% 1,000 ML IV SCH (18:10)
[2024-01-27 18:37] LABS: INR 1.06 (0.9-1.15); Prothrombin Time 11.2 sec (9.3-11.8)
[2024-01-27 18:59] VITALS: PULSE 77; RESP 20; O2SAT 99
[2024-01-27 20:00] VITALS: RESP 20
[2024-01-27] MEDS: HEPARIN SODIUM (PORCINE) 5000 UNITS/ML 1ML VIAL IV ONE (20:08)
[2024-01-27] MEDS: WARFARIN SODIUM 5 MG TAB PO ONE (20:08)
[2024-01-27 21:00] VITALS: BP 155/84; PULSE 81; RESP 16; TEMP 98; O2SAT 100
[2024-01-27] MEDS: hydrALAZINE HCL 20 MG/ML VL IV PRN (22:26)
[2024-01-27] MEDS: carBAMazepine 200 MG TAB PO SCH (22:27)
[2024-01-27] MEDS: ATORVASTATIN 20 MG TAB PO SCH (22:27)
[2024-01-27] MEDS: BACLOFEN 10 MG TAB PO SCH (22:27)
[2024-01-27] MEDS: GABAPENTIN 100 MG CAP PO SCH (22:27)
[2024-01-28] VITALS (8 sets, daily range): BP systolic 126–166; BP diastolic 45–67; PULSE 79–100; RESP 14–20; TEMP 97.8–98.4; O2SAT 92–99
[2024-01-28] MEDS: MORPHINE SULFATE INJ 2 MG/ml SYRG IV PRN (01:22)
[2024-01-28 06:09] LABS: Basophils # (auto) 0 10 ^3/uL (0-0.2); Basophils % (auto) 0.6 % (0.0-2.0); Eosinophils # (auto) 0.1 10 ^3/uL (0-0.8); Eosinophils % (auto) 1.1 % (0.0-7.0); Hematocrit 34.6 % (36.0-46.0); Hemoglobin 11.8 g/dL (12.2-16.2); Lymphocytes # (auto) 1.4 10 ^3/uL (0.4-5.4); Lymphocytes % (auto) 24.5 % (10.0-50.0); Mean Corpuscular Hemoglobin 31.6 pg (28.0-32.0); Mean Corpuscular Hgb Conc. 34.1 g/dL (32.0-36.0); Mean Corpuscular Volume 92.6 fL (80.0-100.0); Monocytes # (auto) 0.6 10 ^3/uL (0-1.3); Monocytes % (auto) 10.3 % (0.0-12.0); Neutrophils # (auto) 3.6 10 ^3/uL (1.6-8.6); Neutrophils % (auto) 63.5 % (37.0-80.0); Nucleated Red Blood Cells % 0.1 %; Platelet Count (auto) 175 10^3/uL (140-450); Red Blood Cells 3.74 10^6/uL (4.0-5.20); Red Cell Distribution Width 13.8 % (11.8-14.3); White Blood Cell 5.7 10^3/uL (4.4-10.8)
[2024-01-28 06:31] LABS: Alanine Aminotransferase 11 U/L (7-40); Alkaline Phosphatase 107 U/L (46-116); Anion Gap 7 (5-15); Aspartate Aminotransferase 25 U/L (13-40); BUN/Creatinine Ratio 24.1 (10.0-20.0); Blood Urea Nitrogen 26 mg/dL (9-23); Calcium 9.3 mg/dL (8.7-10.4); Carbon Dioxide 26 mmol/L (20-30); Chloride 105 mmol/L (98-107); Glucose 108 mg/dL (74-106); Potassium 3.9 mmol/L (3.5-5.1); Sodium 138 mmol/L (136-145)
[2024-01-28 06:32] LABS: Bilirubin, Total 0.6 mg/dL (0.2-1.0); Total Protein 7.1 g/dL (5.7-8.2)
[2024-01-28] MEDS: ONDANSETRON HCL 4 MG/2 ML VIAL IV PRN (06:33)
[2024-01-28 06:56] LABS: INR 1.09 (0.9-1.15); Prothrombin Time 11.5 sec (9.3-11.8)
[2024-01-28] MEDS: LISINOPRIL 5 MG TAB PO SCH (09:40)
[2024-01-28] MEDS: amLODIPine BESYLATE 5 MG TAB PO SCH (09:40)
[2024-01-28] MEDS: traZODone HCL 50 MG TAB PO SCH (09:40)
[2024-01-28] MEDS: CITALOPRAM HYDROBR 20 MG TAB PO SCH (09:40)
[2024-01-28] MEDS: METOPROLOL SUCCINATE XL 50 MG TAB PO SCH (09:41)
[2024-01-28] MEDS: PANTOPRAZOLE 40 MG TAB PO SCH (09:49)
[2024-01-28] MEDS ORDERED: WARFARIN SODIUM 5 MG TAB PO ONE (17:00)
[2024-01-29] VITALS (9 sets, daily range): BP systolic 121–159; BP diastolic 44–62; PULSE 64–84; RESP 15–18; TEMP 97.8–98.3; O2SAT 91–99
[2024-01-29] MEDS: carBAMazepine 200 MG TAB PO SCH (18:30)
[2024-01-29] MEDS: GABAPENTIN 100 MG CAP PO SCH (18:30)
[2024-01-30] VITALS (8 sets, daily range): BP systolic 150–168; BP diastolic 68–89; PULSE 60–82; RESP 15–17; TEMP 97.7–98.5; O2SAT 94–98
[2024-01-30] MEDS: carBAMazepine 200 MG TAB PO SCH (05:41)
[2024-01-30] MEDS: GABAPENTIN 100 MG CAP PO SCH (05:42)
[2024-01-31] VITALS (15 sets, daily range): BP systolic 125–160; BP diastolic 47–66; PULSE 74–87; RESP 14–18; TEMP 98–98.6; O2SAT 91–98
[2024-01-31] MEDS: SODIUM CHL 0.9% 0 ML ONE (13:36)
[2024-01-31] MEDS: fentaNYL CITRATE 100 MCG/2 ML VL ONE (13:36)
[2024-01-31] MEDS: ANGIOMAX 250 MG VIAL IV ONE (13:36)
[2024-01-31] MEDS: MIDAZOLAM HCL 2MG/2ML 2ml VIAL (1mg/ml) ONE (13:36)
[2024-01-31] MEDS: LIDOCAINE 2%HCL (LOCAL ANESTH.) INJ 20ML MDV ONE (13:38)
[2024-01-31] MEDS: IODIXANOL 320MG/ML 100ML BTL IV ONE ×3 (13:38→14:23)
[2024-01-31] MEDS: HEPARIN SODIUM (PORCINE) 5000 UNITS/ML 1ML VIAL ONE (14:23)
[2024-02-01] VITALS (7 sets, daily range): BP systolic 110–165; BP diastolic 46–97; PULSE 74–90; RESP 16–18; TEMP 98–99.2; O2SAT 18–97
[2024-02-01] MEDS: APIXABAN 5 MG TAB PO SCH (21:03)
[2024-02-02] VITALS (7 sets, daily range): BP systolic 126–159; BP diastolic 48–62; PULSE 70–86; RESP 16–18; TEMP 97.5–98.5; O2SAT 92–98
[2024-02-02 13:38] LABS: COVID19 ANTIGEN SOFIA FIA NEGATIVE (NEGATIVE)
[2024-02-02] MEDS: ACETAMINOPHEN 325 MG TAB PO PRN (13:58)
== END 2024-02-02 18:40 | DRG 253 ==
LOC: ER 11:32 → EDBD 11:32 → OVERFLOW 16:46 → WEST WING 18:30
PROVIDERS: ADMIT Nurse Practitioner Family; ATTEND Family Medicine
PROC: 047Q3ZZ Dilation of Left Anterior Tibial Artery, Percutaneous Approach (ICD-10-PCS; principal; 2024-01-31)
PROC: 047U3ZZ Dilation of Left Peroneal Artery, Percutaneous Approach (ICD-10-PCS; 2024-01-31)
PROC: B41GYZZ Fluoroscopy of Left Lower Extremity Arteries using Other Contrast (ICD-10-PCS; 2024-01-31)
PROC: B41FYZZ Fluoroscopy of Right Lower Extremity Arteries using Other Contrast (ICD-10-PCS; 2024-01-31)
DX: I70.292 Other atherosclerosis of native arteries of extremities, left leg (principal); N17.9 Acute kidney failure, unspecified; G25.3 Myoclonus; R07.81 Pleurodynia; F32.A Depression, unspecified; F41.9 Anxiety disorder, unspecified; E78.5 Hyperlipidemia, unspecified; G50.0 Trigeminal neuralgia; I12.9 Hypertensive chronic kidney disease with stage 1 through stage 4 chronic kidney disease, or unspecified chronic kidney disease; N18.9 Chronic kidney disease, unspecified; M51.36 Other intervertebral disc degeneration, lumbar region; K59.00 Constipation, unspecified; Z20.822 Contact with and (suspected) exposure to COVID-19; Z86.718 Personal history of other venous thrombosis and embolism; Z93.3 Colostomy status; Z90.49 Acquired absence of other specified parts of digestive tract; Z90.710 Acquired absence of both cervix and uterus; Z86.73 Personal history of transient ischemic attack (TIA), and cerebral infarction without residual deficits; Z87.891 Personal history of nicotine dependence; Z82.3 Family history of stroke; Z82.0 Family history of epilepsy and other diseases of the nervous system; Z82.49 Family history of ischemic heart disease and other diseases of the circulatory system; Z80.1 Family history of malignant neoplasm of trachea, bronchus and lung; Z80.0 Family history of malignant neoplasm of digestive organs; Z79.01 Long term (current) use of anticoagulants
CPT/HCPCS: 36415; 37246; 71045; 71101; 73630; 75716; 80048; 80053; 84484; 85025; 85610; 87426; 93005; 93926; 93971; 96374; 97110; 97116; 97163; 97530; 99152; C1725; C1769; C1894; G0378; J2250; J2405; Q9967

== ENCOUNTER 2024-04-23 16:31 | Inpatient (IN) | payer MEDICARE ==
[~2024-04-23] VITALS: Ht 165.1 cm; Wt 48.6 kg
[~2024-04-23 16:31] MED LIST changes: +BACL10TA PO; +CARB200T5 PO; +HYDR-4902 PO; +IBUP-1454 PO; +TRAM50TA2 PO
--- NOTE | 2024-04-23 22:58 | ED.PDOC ---
Back pain HPI HPI Comments A 88 year old female brought in by EMS presents to the ED with a chief complaint of low back pain onset 20 days. Patient states she fell about 20 days ago and shortly after began experiencing low back pain as well as sciatica pain that radiates to bilateral legs, making it difficult to walk. Patient has been given [place] as well as Aleve for pain but has not noticed an improvement. Past medical history of Arthritis, Depression, Anxiety, HTN, HLD, TIA, sciatica. No other symptoms or modifying factors present at this time. Chief Complaint: Back Pain Time Seen by MD: 22:48 Primary Care Provider: none Reviewed Notes: Medications, Allergies Allergies: Coded Allergies: NO KNOWN ALLERGIES (Unverified , 11/12/19) Home Meds Active Scripts Hydrocodone-Acetaminophen (Hydrocodone Bitartrate/AC 5-325 mg) 1 Tab Tab, 1 TAB PO QID PRN, #40 TAB Prov:YVES BARR MD 04/07/24 Hydrocodone-Acetaminophen (Hydrocodone Bitartrate/AC 10-325 mg) 1 Tab Tab, 1 TAB PO Q6HPRN PRN, #20 TAB Prov:TARAN TERRY DO 10/14/23 Reported Medications Pantoprazole Sodium Sesquihydr (Protonix) 40 Mg Tab, 2.5 MG PO DAILY, #30 TAB 12/29/20 Cyanocobalamin (B12) 1,000 Mcg Tab, 1000 MCG PO, TAB 12/29/20 Multiple Vitamins W/ Minerals (Preservision Areds 2) 1 Chw Chw, 2 CHW PO, CHW 12/29/20 Biotin (Biotin) 5,000 Mcg Cap, 1000 MCG PO DAILY, CAP 12/29/20 Calcium Acetate (PHOSLO CAPSULE) 667 Mg Cp, 600 MG PO BID, CAP 12/29/20 Hydroxychloroquine Sulfate (PLAQUENIL) 200 Mg Tab, 200 MG PO DAILY, TAB 12/29/20 Gabapentin (Gabapentin) 100 Mg Cap, 0 PO TID, MG TAKE 2 CAPS PO BID & 3 CAPS PO HS 05/13/20 Trazodone Hcl (Trazodone Hcl) 50 Mg Tab, 50 MG PO DAILY, MG 05/13/20 Citalopram Hydrobromide (Citalopram Hydrobromide) 10 Mg Tab, 10 MG PO DAILY, TAB 05/13/20 Metoprolol Succinate (Metoprolol Succinate Er) 25 Mg Tab, 1 TAB PO DAILY, #30 TAB 5 Refills 05/13/20 Amlodipine Besylate (Amlodipine Besylate) 10 Mg Tab, 1 TAB PO DAILY, #30 TAB 5 Refills 05/13/20 Rosuvastatin Calcium (Rosuvastatin Calcium) 20 Mg Tab, 20 MG PO DAILY, TAB 05/13/20 Warfarin Sodium (Warfarin Sodium) 5 Mg Tab, 2 TAB PO BATRES,,,SA, #90 TAB 1 Refill 05/13/20 Carbamazepine (Tegretol) 200 Mg Tab, 200 MG PO TID, TAB 12/19/19 Warfarin Sodium (Warfarin Sodium) 5 Mg Tab, 1 TAB PO [facility], #90 TAB 1 Refill 11/08/19 Lisinopril (Lisinopril) 10 Mg Tab, 10 MG PO BID for 30 Days, MG 02/20/18 Information Source: Patient, Relative (Child) Mode of Arrival: Ambulatory Timing: Weeks Duration: Since onset Location of Back pain: (B) Lower back, (B) Lumbar Severity: Moderate Prehospital treatment: None Past Medical History PAST MEDICAL HISTORY: Anxiety, Arthritis, Depression, High Lipids, HTN, TIA Past Medical History (Other): sciatica Surgical History: Appendectomy, Cholecystectomy, Hernia Repair, Hysterectomy, Tonsillectomy EARTH BURNER History: No Pertinent EARTH BURNER History Family History Family History: No family hx of Cancer, No family hx of Stroke Social History Smoker: Non-Smoker Alcohol: Denies ETOH Use Drugs: Denies Drug Use Lives In: Retirement Constitutional: denies: chills, diaphoresis, fatigue, fever, malaise, sweats, weakness, others EENTM: denies: blurred vision, double vision, ear bleeding, ear discharge, ear drainage, ear pain, ear ringing, eye pain, eye redness, hearing loss, mouth pain, mouth swelling, nasal discharge, nose bleeding, nose congestion, nose pain, photophobia, tearing, throat pain, throat swelling, voice changes, others Respiratory: denies: cough, hemoptysis, orthopnea, SOB at rest, shortness of breath, SOB with excertion, stridor, wheezing, others Cardiovascular: denies: chest pain, dizzy spells, diaphoresis, Dyspnea on exertion, edema, irregular heart beat, left arm pain, lightheadedness, palpitations, PND, syncope, others Gastrointestinal: denies: abdomen distended, abdominal pain, blood streaked bowels, constipated, diarrhea, dysphagia, difficulty swallowing, hematemesis, melena, nausea, poor appetite, poor fluid intake, rectal bleeding, rectal pain, vomiting, others Genitourinary: denies: abnormal vagina bleeding, burning, dyspareunia, dysuria, flank pain, frequency, hematuria, incontinence, pain, , vagina discharge, urgency, others Neurological: denies: dizziness, fainting, headache, left sided numbness, left sided weakness, numbness, paresthesia, pre-existing deficit, right sided numbness, right sided weakness, seizure, speech problems, tingling, tremors, weakness, others Musculoskeletal: reports: back pain; denies: gout, joint pain, joint swelling, muscle pain, muscle stiffness, neck pain, others Integumetry: denies: bruises, change in color, change in hair/nails, dryness, laceration, lesions, lumps, rash, wounds, others Allergic/Immunocompromised: denies: Difficulty Healing, Frequent Infections, Hives, Itching, others Hematologic/Lymphatic: denies: anemia, blood clots, easy bleeding, easy bruising, swollen glands, others Endocrine: denies: excessive hunger, excessive sweating, excessive thirst, excessive urination, flushing, intolerance to cold, intolerance to heat, unexplained weight gain, unexplained weight loss, others Psychiatric: denies: anxiety, bipolar disorder, depression, hopeless, panic disorder, schizophrenia, sleepless, suicidal, others All Other Systems: Reviewed and Negative Physical Exam General Appearance: Normal, Severe Distress HEENT: Normal ENT Inspection, Pharynx Normal, TMs Normal Neck: Full Range of Motion, Non-Tender, Normal, Normal Inspection Respiratory: Chest Non-Tender, Lungs Clear, No Accessory Muscle Use, No Respiratory Distress, Normal Breath Sounds Cardiovascular: No Edema, No JVD, No Murmur, No Gallop, Normal Peripheral Pulses, Regular Rate/Rhythm Breast Exam: Deferred Gastrointestinal: LLQ (colostomy ), No Organomegaly, Non Tender, No Pulsatile Mass, Normal Bowel Sounds, Soft Genitalia: Deferred Pelvic: Deferred Rectal: Deferred Extremities: No calf tenderness, Normal capillary refill, Normal inspection, Normal range of motion, Non-tender, No pedal edema Musculoskeletal : Location: Bilateral Extremity Location: Back (Severe tenderness with decreased range of motion) Apperance: Normal Neurologic: Alert, algorithm design engineer II-XII nml as Tested, No Motor Deficits, Normal Affect, Normal Mood, No Sensory Deficits Cerebellar Function: Normal Reflexes: Normal Skin: Dry, Normal Color, Warm Lymphatic: No Adenopathy Was a procedure done? Was a procedure done?: No Back Pain Differential Dx Differential Diagnosis: Other (Fracture dislocation degenerative joint disease with radiculopathy) X-Ray, Labs, Meds, VS Vital Signs Date Time Temp Pulse Resp B/P (MAP) Pulse Ox O2 Delivery O2 Flow Rate FiO2 04/23/24 17:36 98.4 82 16 191/89 (123) 97 Labs are pending. Lumbar spine CT is pending Time of 1ST Reevaluation: 23:18 Reevaluation 1ST: Unchanged Patient Education/Counseling: Diagnosis, Treatment, Prognosis Family Education/Counseling: Diagnosis, Treatment, Prognosis Departure 1 Departure Time of Disposition: 00:15 Impression: Primary Impression: Lumbar sprain Qualified Codes: S33.5XXS - Sprain of ligaments of lumbar spine, sequela Additional Impressions: Lumbar radiculopathy Musculoskeletal pain Status post fall Disposition: ADMITTED INPATIENT Admit to: Med Surg Condition: Guarded Critical Care Note Critical Care Time?: Yes (35 min-critical care time only) Stability Stability form required: No I personally scribed for HANNY KNUTSON MD ([email or web address]) on 04/23/24 at 22:58. Electronically submitted by Natalia Zambrano ([email or web address]). I personally scribed for HANNY KNUTSON MD ([email or web address]) on 04/23/24 at 23:04. Electronically submitted by Natalia Zambrano ([email or web address]). HANNY KNUTSON MD Apr 23, 2024 22:58
[2024-04-23] MEDS ORDERED: HYDROmorphone HCL 2 MG/ML VL/or syr IV ONE (23:15)
[2024-04-23] MEDS: ACETAMINOPHEN 325 MG TAB PO ONE (23:30)
[2024-04-23 23:34] LABS: Basophils # (auto) 0 10 ^3/uL (0-0.2); Basophils % (auto) 0.3 % (0.0-2.0); Eosinophils # (auto) 0.2 10 ^3/uL (0-0.8); Eosinophils % (auto) 1.7 % (0.0-7.0); Hematocrit 33.8 % (36.0-46.0); Hemoglobin 11.1 g/dL (12.2-16.2); Lymphocytes # (auto) 1.3 10 ^3/uL (0.4-5.4); Lymphocytes % (auto) 12.1 % (10.0-50.0); Mean Corpuscular Hemoglobin 29.1 pg (28.0-32.0); Mean Corpuscular Hgb Conc. 32.9 g/dL (32.0-36.0); Mean Corpuscular Volume 88.3 fL (80.0-100.0); Monocytes # (auto) 0.7 10 ^3/uL (0-1.3); Monocytes % (auto) 6.9 % (0.0-12.0); Neutrophils # (auto) 8.3 10 ^3/uL (1.6-8.6); Platelet Count (auto) 250 10^3/uL (140-450); Red Blood Cells 3.82 10^6/uL (4.0-5.20); Red Cell Distribution Width 17.2 % (11.8-14.3); White Blood Cell 10.5 10^3/uL (4.4-10.8)
[2024-04-23 23:53] LABS: Alanine Aminotransferase 10 U/L (7-40); Alkaline Phosphatase 152 U/L (46-116); Anion Gap 8 (5-15); Aspartate Aminotransferase 21 U/L (13-40); BUN/Creatinine Ratio 22.9 (10.0-20.0); Blood Urea Nitrogen 22 mg/dL (9-23); Calcium 10.1 mg/dL (8.7-10.4); Carbon Dioxide 27 mmol/L (20-31); Chloride 102 mmol/L (98-107); Glucose 113 mg/dL (74-106); Potassium 4.1 mmol/L (3.5-5.1); Sodium 137 mmol/L (136-145)
[2024-04-23 23:54] LABS: Albumin 4.4 g/dL (3.2-4.8); Bilirubin, Total 0.3 mg/dL (0.2-1.0); Total Protein 7.7 g/dL (5.7-8.2)
--- NOTE | 2024-04-23 23:56 | DVH ---
CHEST RADIOGRAPH Indication: radiculopathy Technique: Single frontal view of the chest was obtained Comparison: XY CHEST XRAY 1 VIEW on DOS: 01/31/24, CHEST PORTABLE on DOS: 05/14/20 FINDINGS: Lines and Tubes: None Lungs: Clear Pleura: No effusion. No pneumothorax. Cardiomediastinal contours: Mild cardiomegaly. Bones: Unremarkable IMPRESSION: 1. Clear lungs.
[2024-04-23 23:58] LABS: INR 1.03 (0.9-1.15); Partial Thromboplastin Time 30.2 SEC (24.5-34.5); Prothrombin Time 10.9 sec (9.3-11.8)
--- NOTE | 2024-04-24 00:01 | DVH ---
CT LS SPINE WO CONTRAST INDICATION: fall EXAM DATE: 04/23/2024 11:11 PM COMPARISON: CT R SHOULDER WO CONTRAST on DOS: 05/13/20 RADIATION DOSE: CTDIvol: 10.9 mGy, DLP: 358.24 mGy*cm PROCEDURE: Utilizing the CT scanner, contiguous axial scans were obtained through the lumbar spine. C oronal and sagittal reformatted images were then generated. All CT scans at this medical facility are performed using dose modulation techniques as appropriate t o a performed exam including the following: Automated exposure control was utilized; adjustment of th e MA and/or KV according to patient size; and use of iterative reconstruction technique. Findings/ IMPRESSION: No acute fracture or subluxation. Moderate to severe compression deformity seen throughout the lumbar spine of unknown chronicity but most likely nonacute. Severe multilevel degenerative disc disease wi th calcified disc bulges and at least mild spinal canal stenosis. There is moderate to severe bilater al osseous neural foraminal narrowing.
--- NOTE | 2024-04-24 00:16 | DVHHP2 ---
History of Present Illness Reason for Visit: Back pain History of Present Illness 88-year-old female presents for evaluation of back pain. Patient reports a two week history of worsening lower back pain. She reports pain radiating down bilateral legs making difficult to ambulate. Denies lower extremity numbness or tingling. Denies incontinence. Other acute complaints Past Medical History Impression, dyslipidemia, hypertension, TIA, sciatica Past Surgical History Cholecystectomy, appendectomy, hernia repair, hysterectomy, tonsillectomy Family History Noncontributory Smoke: No ALCOHOL: none Drugs: None Lives: with Family Review of Systems Review of Systems Review of systems are currently negative otherwise dressing HPI. Allergies: Coded Allergies: NO KNOWN ALLERGIES (Unverified , 11/12/19) Exam Vital Signs Vital Signs Date Time Temp Pulse Resp B/P (MAP) Pulse Ox O2 Delivery O2 Flow Rate FiO2 04/23/24 17:36 98.4 82 16 191/89 (123) 97 Exam Gen: 88-year-old female in mild distress Skin: Warm, dry, normal color and texture, no rash. HEENT: Normocephalic atraumatic, mucous membranes moist and pink. Neck: Cervical and supraclavicular nodes normal without enlargement, trachea is midline, thyroid gland is normal without masses. Pulmonary: Clear to auscultation and percussion bilaterally. Cardiac: Regular rate and rhythm. No murmur Abdomen: Soft, nontender, nondistended, bowel sounds present all 4 quadrants, no guarding, no rigidity, no organomegaly. Extremities: No cyanosis, clubbing, no edema Neuro: Cranial nerves II through XII grossly intact, normal affect and speech, no focal motor deficits. Labs/Xrays ORDERING PHYSICIAN: HANNY KNUTSON MD PROCEDURE(s): LS2CT - LS SPINE WO CONTRAST REASON: fall ORDER NUMBER(s): [id number], ACCESSION NUMBER(s): [id number] CT LS SPINE WO CONTRAST INDICATION: fall EXAM DATE: 04/23/2024 11:11 PM COMPARISON: CT R SHOULDER WO CONTRAST on DOS: 05/13/20 RADIATION DOSE: CTDIvol: 10.9 mGy, DLP: 358.24 mGy*cm PROCEDURE: Utilizing the CT scanner, contiguous axial scans were obtained through the lumbar spine. Coronal and sagittal reformatted images were then generated. All CT scans at this medical facility are performed using dose modulation techniques as appropriate to a performed exam including the following: Automated exposure control was utilized; adjustment of the MA and/or KV according to patie nt size; and use of iterative reconstruction technique. Findings/ IMPRESSION: No acute fracture or subluxation. Moderate to severe compression deformity seen throughout the lumbar spine of unknown chronicity but most likely nonacute. Severe multilevel degenerative disc disease with calcified disc bulges and at least mild spinal canal stenosis. There is moderate to severe bilateral osseous neural foraminal narrowing. Labs Test 04/23/24 23:26 Range/Units White Blood Count 10.5 4.4-10.8 10^3/uL Red Blood Count 3.82 L 4.0-5.20 10^6/uL Hemoglobin 11.1 L 12.2-16.2 g/dL Hematocrit 33.8 L 36.0-46.0 % Mean Corpuscular Volume 88.3 80.0-100.0 fL Mean Corpuscular Hemoglobin 29.1 28.0-32.0 pg Mean Corpuscular Hemoglobin Concent 32.9 32.0-36.0 g/dL Red Cell Distribution Width 17.2 H 11.8-14.3 % Platelet Count 250 140-450 10^3/uL Mean Platelet Volume 8.1 6.9-10.8 fL Neutrophils (%) (Auto) 79.0 37.0-80.0 % Lymphocytes (%) (Auto) 12.1 10.0-50.0 % Monocytes (%) (Auto) 6.9 0.0-12.0 % Eosinophils (%) (Auto) 1.7 0.0-7.0 % Basophils (%) (Auto) 0.3 0.0-2.0 % Neutrophils # (Auto) 8.3 1.6-8.6 10 ^3/uL Lymphocytes # (Auto) 1.3 0.4-5.4 10 ^3/uL Monocytes # (Auto) 0.7 0-1.3 10 ^3/uL Eosinophils # (Auto) 0.2 0-0.8 10 ^3/uL Basophils # (Auto) 0 0-0.2 10 ^3/uL Nucleated Red Blood Cells 0.0 % Prothrombin Time 10.9 9.3-11.8 sec Prothrombin Time INR 1.03 0.9-1.15 Activated Partial Thromboplast Time 30.2 24.5-34.5 SEC Sodium Level 137 136-145 mmol/L Potassium Level 4.1 3.5-5.1 mmol/L Chloride Level 102 98-107 mmol/L Carbon Dioxide Level 27 20-31 mmol/L Anion Gap 8 5-15 Blood Urea Nitrogen 22 9-23 mg/dL Creatinine 0.96 0.550-1.02 mg/dL Glomerular Filtration Rate Calc 58 >90 mL/min BUN/Creatinine Ratio 22.9 H 10.0-20.0 Serum Glucose 113 H 74-106 mg/dL Calcium Level 10.1 8.7-10.4 mg/dL Total Bilirubin 0.3 0.2-1.0 mg/dL Aspartate Amino Transferase (AST) 21 13-40 U/L Alanine Aminotransferase (ALT) 10 7-40 U/L Alkaline Phosphatase 152 H 46-116 U/L Troponin I High Sensitivity 21 </=34 ng/L B-Type Natriuretic Peptide 133.07 0-100 pg/mL Total Protein 7.7 5.7-8.2 g/dL Albumin 4.4 3.2-4.8 g/dL Assessment/Plan Assessment/Plan Assessment Lumbar radiculopathy Acute on chronic back pain Hypertension Chronic pain syndrome Hypertension Plan Admit the patient to [facility] to the hospitalist Pain management Physical therapy eval Resume home medications Continue treatment per orders. Plan discussed with: Patient My Orders Orders - ZANDRA CHRISTIANSON Procedure Category Date Status Time Admit ADMIT 04/23/24 Transmitted 23:52 Date of Service: Apr 24, 2024 Billing Provider: ZANDRA CHRISTIANSON Common Visit Codes: [id number] INP/OBS CARE (MOD) ZANDRA CHRISTIANSON Apr 24, 2024 00:16
[2024-04-24] MEDS ORDERED: MORPHINE SULFATE INJ 2 MG/ml SYRG IV PRN (00:30)
[2024-04-24] MEDS: diazePAM 5 MG TAB PO ONE (01:42)
[2024-04-24] MEDS: KETOROLAC TROMETH 30 MG/ML 1ML VIAL IV ONE (01:44)
[2024-04-24] MEDS: ONDANSETRON HCL 4 MG/2 ML VIAL IV ONE (01:44)
[2024-04-24] MEDS: methylPREDNISolone SOD SUCC 125 MG/2 ML VL IV ONE (01:44)
[2024-04-24] MEDS: MORPHINE SULFATE 4 MG/ML SYR/VIAL IV ONE (01:46)
[2024-04-24 02:00] VITALS: PULSE 73; RESP 17; O2SAT 96
[2024-04-24] MEDS: cloNIDine HCL 0.1 MG TAB PO PRN ×2 (04:22→19:43)
[2024-04-24] MEDS: carBAMazepine 200 MG TAB PO SCH ×2 (05:51→21:50)
[2024-04-24 07:40] VITALS: PULSE 71; RESP 16; O2SAT 98
[2024-04-24] MEDS: BACLOFEN 10 MG TAB PO PRN (08:15)
[2024-04-24] MEDS: ENOXAPARIN SOD 40 MG/0.4 ML SYRINGE SC SCH (10:10)
[2024-04-24] MEDS: LISINOPRIL 20 MG TAB PO SCH (10:10)
[2024-04-24] MEDS: METOPROLOL SUCCINATE XL 50 MG TAB PO SCH (10:11)
[2024-04-24 10:17] LABS: Basophils # (auto) 0 10 ^3/uL (0-0.2); Basophils % (auto) 0.2 % (0.0-2.0); Eosinophils # (auto) 0 10 ^3/uL (0-0.8); Hematocrit 32.5 % (36.0-46.0); Hemoglobin 10.5 g/dL (12.2-16.2); Lymphocytes # (auto) 0.7 10 ^3/uL (0.4-5.4); Lymphocytes % (auto) 9.5 % (10.0-50.0); Mean Corpuscular Hgb Conc. 32.2 g/dL (32.0-36.0); Mean Corpuscular Volume 90.1 fL (80.0-100.0); Monocytes # (auto) 0.1 10 ^3/uL (0-1.3); Monocytes % (auto) 1.7 % (0.0-12.0); Neutrophils # (auto) 6.3 10 ^3/uL (1.6-8.6); Neutrophils % (auto) 88.6 % (37.0-80.0); Nucleated Red Blood Cells % 0.1 %; Platelet Count (auto) 221 10^3/uL (140-450); Red Blood Cells 3.61 10^6/uL (4.0-5.20); Red Cell Distribution Width 17.6 % (11.8-14.3); White Blood Cell 7.1 10^3/uL (4.4-10.8)
[2024-04-24 10:30] LABS: Albumin 3.8 g/dL (3.2-4.8); Alkaline Phosphatase 124 U/L (46-116); Anion Gap 7 (5-15); Aspartate Aminotransferase 18 U/L (13-40); BUN/Creatinine Ratio 21.7 (10.0-20.0); Blood Urea Nitrogen 20 mg/dL (9-23); Calcium 9.3 mg/dL (8.7-10.4); Carbon Dioxide 26 mmol/L (20-31); Chloride 104 mmol/L (98-107); Glucose 130 mg/dL (74-106); Potassium 4.9 mmol/L (3.5-5.1); Sodium 137 mmol/L (136-145)
[2024-04-24 10:31] LABS: Bilirubin, Total 0.4 mg/dL (0.2-1.0); Total Protein 6.8 g/dL (5.7-8.2)
[2024-04-24 10:39] LABS: Alanine Aminotransferase < 9 U/L (7-40)
[2024-04-24] MEDS: GABAPENTIN 300 MG CAP PO ONE (11:23)
[2024-04-24] MEDS ORDERED: ROSU20TA14 PO (11:42)
[2024-04-24 13:24] LABS: Urine Bacteria FEW /hpf (None Seen); Urine Blood Negative /uL (Negative); Urine Budding Yeast OCCASIONAL /hpf (None Seen); Urine Clarity Clear (Clear); Urine Color Light-Yellow (Yellow); Urine Mucus FEW (None Seen); Urine Protein, UAD Negative (Negative); Urine Specific Gravity 1.013 (1.001-1.035); Urine Urobilinogen Normal (Negative); Urine WBC 12 /hpf (0 - 5); Urine pH 5.5 (5.0-9.0)
--- NOTE | 2024-04-24 13:47 | DVHPNRES ---
Progress Note Date Seen: Apr 24, 2024 Resident Creating Document: KIYARickVICKEY CabreraTREY RESIDENT Medical Necessity Reason Pt with a Central, PICC or Fol: Yes Subjective Review of Systems Patient is a 88-year-old female with a past medical history of degenerative disc disease with sciatica, trigeminal neuralgia, lupus, PAD, hypertension came to the ED for a chief complaint of worsening lower back pain for 2 days prior to admission. Patient reports that she lives in [facility] care [facility] for about 6 years and was apparently doing well when she fell down, reportedly lost balance but did not loose consciousness and since then had started having back pain which was initially tolerable and since 2 days before admission had severe lower back pain radiating intermittently to her lower limbs and had difficulty walking. Patient denies sensory loss, numbness or tingling. patient had chronic urinary incontinence but denies rectal incontinence. denies chest pain, shortness of breath, abdominal pain, nausea or vomiting. Lumbar CT without contrast showed No acute fracture or subluxation. Moderate to severe compression deformity seen throughout the lumbar spine of unknown chronicity but most likely nonacute. Severe multilevel degenerative disc disease with calcified disc bulges and at least mild spinal canal stenosis. There is moderate to severe bilateral osseous neural foraminal narrowing. Past medical history: as per HPI Past surgical history: Ruptured colon s/p colostomy about 15 years ago, S/P angioplasty left anterior tibial and peroneal artery , appendicectomy, hysterectomy Social history: Lives in [facility] and denies smoking, alcohol, drug use Home medications: carbamazepine, lisinopril, gabapentin, baclofen Review of systems Patient seen and examined at the bedside. Patient is alert and oriented to time, place and person. Patient reports [id number] lower back pain, no radiation to the legs while in the bed in the semi-recumbent position. Patient was having episode of flare-up of trigeminal neuralgia left-sided with sharp electric shock-like pain episodes lasting few seconds and recurrent. patient was given gabapentin and was later improved. patient has a colostomy bag in the left lumbar quadrant of the abdomen. Patient had urinary incontinence, but no numbness or tingling in the lower extremities, miranda's catheter was inserted. Objective vital signs Vital Sign Date Time Temp Pulse Resp B/P (MAP) Pulse Ox O2 Delivery O2 Flow Rate FiO2 04/24/24 12:00 72 16 123/55 (77) 94 04/24/24 07:40 97.6 97.6 04/24/24 07:40 Nasal Cannula* 2 28 medications Current Medications Medications Dose Ordered Sig/Rojelio Route Start Time Stop Time Status Last Admin Dose Admin Carbamazepine 100 mg TID PO 04/24/24 06:00 04/24/24 05:51 100 MG Atorvastatin Calcium 20 mg HS PO 04/24/24 22:00 Baclofen 10 mg Q8HP PRN PO 04/24/24 00:30 04/24/24 08:15 10 MG Lisinopril 20 mg DAILY PO 04/24/24 10:00 04/24/24 10:10 20 MG Metoprolol Succinate 25 mg DAILY PO 04/24/24 10:00 04/24/24 10:11 25 MG Clonidine HCl 0.1 mg Q6HP PRN PO 04/24/24 00:30 04/24/24 04:22 0.1 MG Acetaminophen/ Hydrocodone Bitart 1 tab Q4HP PRN PO 04/24/24 00:30 Ondansetron HCl 4 mg Q4HP PRN IV 04/24/24 00:30 Enoxaparin Sodium 40 mg DAILY SC 04/24/24 10:00 04/24/24 10:10 40 MG Acetaminophen 650 mg Q6HP PRN PO 04/24/24 00:30 Morphine Sulfate 2 mg Q4HPRN PRN IV 04/24/24 00:30 Examination Physical Examination Gen - no pallor, no icterus, no cyanosis, no clubbing, no LAD, no edema . Skin - Patients skin is warm and dry.. HEENT - normocephalic, atraumatic, moist mucous membranes. Neck - full ROM, no LAD, no JVD. Pulmonary - B/L vesicular breath sounds. no crackles , no wheezing, no stridor. cardiovascular - normal S1,S2 heard. RUSB systolic murmur heard.peripheral pulses normal radial 2+, pedal 2+. capillary refill normal <2 secs. GI - soft abdomen without tenderness to palpation . no hepatospleenomegaly. bowel sounds+ Neurological - Patient is A/O X 3 . Bilateral upper extremity strength 3/5, bilateral lower extremity strength 3/5, no facial droop, normal speech, no tremor, no sensory deficiets. laboratory and microbiology Laboratory Tests 04/24/24 09:47 Test 04/24/24 09:47 Range/Units Serum Glucose 130 H 74-106 mg/dL Problem List/Assessment/Plan Problem List/Assessment/Plan Assessment and plan # Acute Lower Back Pain likely d/t Mechanical fall # H/o degenerative disc disease with sciatica - lumbar CT shows no acute fracture or subluxation, [id number] compression deformity seen throughout the lumbar spine of unknown chronicity but most likely non use, multilevel degenerative disc disease with calcified disc bulges at least mild spinal canal stenosis. Moderate to severe bilateral osseous neural foraminal narrowing. - patient given one dose of Solu medrol 125mg iV - Pain control with as needed meds - Ketorolac for breakthrough pain - scheduled baclofen - Physical therapy evaluation pending # Trigeminal neuralgia - patient on carbamazepine 100mg am and 200 mg pm - on scheduled gabapentin # H/o PAD S/P angioplasty - on aspirin 81mg # Uncontrolled Hypertension - On lisinopril - on metoprolol - nifedipine - clonidine PRN if SBP>170mmhg # UTI likely Acute cystitis - UA likely 1+LE, increased Urine WBCs, few bacteria seen - on ceftriaxone Goals of care discussed with patient and the family for over 35 mins. Full code Plan discussed with Plan discussed with: Patient, Son (jacinto (power of corporate associate attorney)) Date of Service: Apr 24, 2024 Billing Provider: SHAVONNE NUÑEZ MD Common Visit Codes: [id number] INP/OBS CARE(HIGH) JONN HOUGH RESIDENT Apr 24, 2024 13:47 SHAVONNE NUÑEZ MD Apr 29, 2024 00:00
[2024-04-24] MEDS ORDERED: BACLOFEN 10 MG TAB PO PRN (18:00)
[2024-04-24 18:37] VITALS: BP 179/70; PULSE 72; RESP 18; TEMP 98.5; O2SAT 95; O2SAT 96
[2024-04-24] MEDS: cefTRIAXone 1GM/50ML D5W 50 ML IV ONE (19:43)
[2024-04-24 20:00] VITALS: PULSE 75; PULSE 96; RESP 18; O2SAT 96
[2024-04-24 21:00] VITALS: BP 154/61; PULSE 75; RESP 18; TEMP 98.1; O2SAT 96
[2024-04-24] MEDS: GABAPENTIN 100 MG CAP PO SCH (21:49)
[2024-04-24] MEDS: NIFEdipine ER 30 MG TAB PO SCH (21:51)
[2024-04-24] MEDS: ATORVASTATIN 20 MG TAB PO SCH (21:51)
[2024-04-25] VITALS (8 sets, daily range): BP systolic 131–172; BP diastolic 51–64; PULSE 63–86; RESP 16–19; TEMP 97.6–98.4; O2SAT 93–98
[2024-04-25 05:39] LABS: Basophils # (auto) 0 10 ^3/uL (0-0.2); Basophils % (auto) 0.6 % (0.0-2.0); Eosinophils # (auto) 0.2 10 ^3/uL (0-0.8); Eosinophils % (auto) 2.9 % (0.0-7.0); Hematocrit 30.6 % (36.0-46.0); Lymphocytes # (auto) 1.1 10 ^3/uL (0.4-5.4); Lymphocytes % (auto) 18.2 % (10.0-50.0); Mean Corpuscular Hemoglobin 28.8 pg (28.0-32.0); Mean Corpuscular Hgb Conc. 32.8 g/dL (32.0-36.0); Mean Corpuscular Volume 87.9 fL (80.0-100.0); Monocytes # (auto) 0.5 10 ^3/uL (0-1.3); Monocytes % (auto) 7.5 % (0.0-12.0); Neutrophils # (auto) 4.3 10 ^3/uL (1.6-8.6); Neutrophils % (auto) 70.8 % (37.0-80.0); Nucleated Red Blood Cells % 0.1 %; Platelet Count (auto) 214 10^3/uL (140-450); Red Blood Cells 3.49 10^6/uL (4.0-5.20); Red Cell Distribution Width 16.9 % (11.8-14.3); White Blood Cell 6.1 10^3/uL (4.4-10.8)
[2024-04-25 05:52] LABS: Alanine Aminotransferase 13 U/L (7-40); Albumin 3.5 g/dL (3.2-4.8); Alkaline Phosphatase 103 U/L (46-116); Anion Gap 8 (5-15); Aspartate Aminotransferase 15 U/L (13-40); BUN/Creatinine Ratio 23.5 (10.0-20.0); Blood Urea Nitrogen 24 mg/dL (9-23); Calcium 9.2 mg/dL (8.7-10.4); Carbon Dioxide 27 mmol/L (20-31); Chloride 105 mmol/L (98-107); Cholesterol 168 mg/dL (< 200); Glucose 99 mg/dL (74-106); LDL Cholesterol 73 mg/dL (< 100); Potassium 3.9 mmol/L (3.5-5.1); Sodium 140 mmol/L (136-145); Triglycerides 105 mg/dL (< 150)
[2024-04-25 05:53] LABS: Bilirubin, Total 0.3 mg/dL (0.2-1.0); Total Protein 6.4 g/dL (5.7-8.2)
[2024-04-25 05:54] LABS: HDL Cholesterol 63 mg/dL (40-59)
[2024-04-25] MEDS: LISINOPRIL 5 MG TAB PO SCH ×2 (06:02→22:06)
[2024-04-25] MEDS: ASPirin 81 mg TAB PO SCH (10:07)
[2024-04-25] MEDS: GABAPENTIN 100 MG CAP PO SCH (10:08)
[2024-04-25] MEDS: carBAMazepine 200 MG TAB PO SCH (10:10)
[2024-04-25] MEDS: cefTRIAXone 1GM/50ML D5W 50 ML IV SCH (15:33)
--- NOTE | 2024-04-25 17:48 | DVHPNRES ---
Progress Note Date Seen: Apr 25, 2024 Resident Creating Document: KIYARickVICKEY CabreraTREY RESIDENT Medical Necessity Reason Pt with a Central, PICC or Fol: Yes Subjective Review of Systems Patient is a 88-year-old female with a past medical history of degenerative disc disease with sciatica, trigeminal neuralgia, lupus, PAD, hypertension came to the ED for a chief complaint of worsening lower back pain for 2 days prior to admission. Patient reports that she lives in [facility] care [facility] for about 6 years and was apparently doing well when she fell down, reportedly lost balance but did not loose consciousness and since then had started having back pain which was initially tolerable and since 2 days before admission had severe lower back pain radiating intermittently to her lower limbs and had difficulty walking. Patient denies sensory loss, numbness or tingling. patient had chronic urinary incontinence but denies rectal incontinence. denies chest pain, shortness of breath, abdominal pain, nausea or vomiting. Lumbar CT without contrast showed No acute fracture or subluxation. Moderate to severe compression deformity seen throughout the lumbar spine of unknown chronicity but most likely nonacute. Severe multilevel degenerative disc disease with calcified disc bulges and at least mild spinal canal stenosis. There is moderate to severe bilateral osseous neural foraminal narrowing. Past medical history: as per HPI Past surgical history: Ruptured colon s/p colostomy about 15 years ago, S/P angioplasty left anterior tibial and peroneal artery , appendicectomy, hysterectomy Social history: Lives in [facility] and denies smoking, alcohol, drug use Home medications: carbamazepine, lisinopril, gabapentin, baclofen Review of systems Patient seen and examined at the bedside. Patient is alert and oriented to time, place and person. Patient reports mild lower back pain, no radiation to the legs while in the bed in the semi-recumbent position. No pain of trigeminal neuralgia. patient has a colostomy bag in the left lumbar quadrant of the abdomen. Patient had urinary incontinence, but no numbness or tingling in the lower extremities, miranda's catheter was inserted. Physical therapy evaluated the patient and recommended SNF at discharge. Objective vital signs Vital Sign Date Time Temp Pulse Resp B/P (MAP) Pulse Ox O2 Delivery O2 Flow Rate FiO2 04/25/24 13:00 98.0 63 16 158/64 (95) 95 98.0 04/25/24 08:00 Nasal Cannula* 2 28 Total Intake and Output 04/24/24 04/24/24 04/25/24 15:00 23:00 07:00 Intake Total 525 ml Output Total 300 ml 950 ml Balance -300 ml -425 ml medications Current Medications Medications Dose Ordered Sig/Rojelio Route Start Time Stop Time Status Last Admin Dose Admin Atorvastatin Calcium 20 mg HS PO 04/24/24 22:00 04/24/24 21:51 20 MG Metoprolol Succinate 25 mg DAILY PO 04/24/24 10:00 04/25/24 10:09 25 MG Acetaminophen/ Hydrocodone Bitart 1 tab Q4HP PRN PO 04/24/24 00:30 Ondansetron HCl 4 mg Q4HP PRN IV 04/24/24 00:30 Enoxaparin Sodium 40 mg DAILY SC 04/24/24 10:00 04/24/24 10:10 40 MG Acetaminophen 650 mg Q6HP PRN PO 04/24/24 00:30 Morphine Sulfate 2 mg Q4HPRN PRN IV 04/24/24 00:30 Gabapentin 200 mg HS PO 04/24/24 22:00 04/24/24 21:49 200 MG Gabapentin 100 mg DAILY PO 04/25/24 10:00 04/25/24 10:08 100 MG Carbamazepine 100 mg DAILY PO 04/25/24 10:00 04/25/24 10:10 100 MG Baclofen 10 mg [id number] PRN PO 04/24/24 18:00 Clonidine HCl 0.1 mg Q6HP PRN PO 04/24/24 18:00 04/25/24 04:11 0.1 MG Carbamazepine 200 mg HS PO 04/24/24 22:00 04/24/24 21:50 200 MG Lisinopril 10 mg QAM PO 04/25/24 07:00 04/25/24 06:02 10 MG Lisinopril 10 mg HS PO 04/25/24 22:00 Ceftriaxone Sodium 50 ml @ 100 mls/hr DAILY@09 IV 04/25/24 16:00 04/25/24 15:33 100 MLS/HR Nifedipine 30 mg DAILY PO 04/24/24 22:00 04/25/24 10:08 30 MG Aspirin 81 mg DAILY PO 04/25/24 10:00 04/25/24 10:07 81 MG Examination Physical Examination Gen - no pallor, no icterus, no cyanosis, no clubbing, no LAD, no edema . Skin - Patients skin is warm and dry.. HEENT - normocephalic, atraumatic, moist mucous membranes. Neck - full ROM, no LAD, no JVD. Pulmonary - B/L vesicular breath sounds. no crackles , no wheezing, no stridor. cardiovascular - normal S1,S2 heard. RUSB systolic murmur heard.peripheral pulses normal radial 2+, pedal 2+. capillary refill normal <2 secs. GI - soft abdomen without tenderness to palpation . no hepatospleenomegaly. bowel sounds+ Neurological - Patient is A/O X 3 . Bilateral upper extremity strength 3/5, bilateral lower extremity strength 3/5, no facial droop, normal speech, no tremor, no sensory deficiets. laboratory and microbiology Laboratory Tests 04/25/24 05:08 Test 04/25/24 05:08 Range/Units Serum Glucose 99 74-106 mg/dL Labs and/or images reviewed: Labs reviewed by me, Image(s) reviewed by me Problem List/Assessment/Plan Problem List/Assessment/Plan Assessment and plan # Acute Lower Back Pain likely d/t Mechanical fall # H/o degenerative disc disease with sciatica - lumbar CT shows no acute fracture or subluxation, nxxccowg-[id number] compression deformity seen throughout the lumbar spine of unknown chronicity but most likely non use, multilevel degenerative disc disease with calcified disc bulges at least mild spinal canal stenosis. Moderate to severe bilateral osseous neural foraminal narrowing. - patient given one dose of Solu Medrol 125mg iV - Pain control with as needed meds - Ketorolac for breakthrough pain - scheduled baclofen - Physical therapy evaluated patient and recommends SNF at discharge # Trigeminal neuralgia - patient on carbamazepine 100mg am and 200 mg pm - on scheduled gabapentin # H/o PAD S/P angioplasty - on aspirin 81mg # Uncontrolled Hypertension - On lisinopril - on metoprolol - nifedipine - clonidine PRN if SBP>150mmhg # UTI likely Acute cystitis - UA likely 1+LE, increased Urine WBCs, few bacteria seen - on ceftriaxone DVT prophylaxis : enoxaparin 40 mg SC daily Goals of care discussed with patient and the family for 20 minutes: DNR Plan discussed with Plan discussed with: Patient, Son (Mike), Other (Nurse) My Orders My Orders Orders - JONN HOUGH RESIDENT Procedure Category Date Status Time Baclofen Tablet PHA 04/24/24 In Process (Liorisal Tablet) 18:00 Clonidine Hcl Tablet PHA 04/24/24 In Process (Catapres Tablet) 18:00 Carbamazepine Tablet PHA 04/24/24 In Process (Tegretol Tablet) 22:00 Lisinopril Tablet PHA 04/25/24 In Process (Zestril Tablet) 07:00 Lisinopril Tablet PHA 04/25/24 In Process (Zestril Tablet) 22:00 Ceftriaxone 1gm/50ml PHA 04/25/24 In Process D5w (Rocephin) 16:00 Nifedipine Er PHA 04/24/24 In Process (Procardia Xl 22:00 Urine Bacterial CHRIS 04/24/24 In Process Culture 18:58 Aspirin Tablet PHA 04/25/24 In Process 10:00 Vitamin B12 LAB 04/25/24 In Process 04:00 Vitamin D, 25-Hydroxy LAB 04/25/24 In Process 04:00 Code Status CODE 04/25/24 Transmitted 14:36 Addendum Addendum Addendum I was physically present for the pereira portions of the service provided to patient by THE RESIDENT. I have reviewed the documentation, discussed the case with resident and agree with the resident's documentation except as noted. Also the patient's clinical case was discussed with the patient's nurse. This medical document was created using an electronic medical record system with computerized dictation system. Although this document has been carefully reviewed, there might still be some phonetic and typographical errors. These areas are purely typographical due to imperfections of the software programs, and do not reflect any compromise in the patient's medical care. Late signature. Date of Service: Apr 25, 2024 Billing Provider: MERVIN RAMOS MD Common Visit Codes: [id number] INP/OBS CARE(HIGH) Secondary Visit Codes: 22739-NDRGSELY CARE PLAN 30 MINUTES (20 minutes) JONN HOUGH RESIDENT Apr 25, 2024 17:48 MERVIN RAMOS MD Apr 27, 2024 06:06
[2024-04-25] MEDS: BACLOFEN 10 MG TAB PO SCH (18:37)
[2024-04-25] MEDS: ACETAMINOPHEN 325 MG TAB PO PRN (22:12)
[2024-04-26] VITALS (8 sets, daily range): BP systolic 96–186; BP diastolic 57–78; PULSE 67–81; RESP 15–18; TEMP 98.1–98.7; O2SAT 87–98
[2024-04-26] MEDS: NIFEdipine ER 30 MG TAB PO ONE (12:30)
[2024-04-26] MEDS: hydrALAZINE HCL 20 MG/ML VL IV ONE (18:00)
--- NOTE | 2024-04-26 18:11 | DVHPNRES ---
Progress Note Date Seen: Apr 26, 2024 Resident Creating Document: VICKEY HOUGHTREY RESIDENT Medical Necessity Reason Pt with a Central, PICC or Fol: Yes Subjective Review of Systems Patient is a 88-year-old female with a past medical history of degenerative disc disease with sciatica, trigeminal neuralgia, lupus, PAD, hypertension came to the ED for a chief complaint of worsening lower back pain for 2 days prior to admission. Patient reports that she lives in [facility] care [facility] for about 6 years and was apparently doing well when she fell down, reportedly lost balance but did not loose consciousness and since then had started having back pain which was initially tolerable and since 2 days before admission had severe lower back pain radiating intermittently to her lower limbs and had difficulty walking. Patient denies sensory loss, numbness or tingling. patient had chronic urinary incontinence but denies rectal incontinence. denies chest pain, shortness of breath, abdominal pain, nausea or vomiting. Lumbar CT without contrast showed No acute fracture or subluxation. Moderate to severe compression deformity seen throughout the lumbar spine of unknown chronicity but most likely nonacute. Severe multilevel degenerative disc disease with calcified disc bulges and at least mild spinal canal stenosis. There is moderate to severe bilateral osseous neural foraminal narrowing. Past medical history: as per HPI Past surgical history: Ruptured colon s/p colostomy about 15 years ago, S/P angioplasty left anterior tibial and peroneal artery , appendicectomy, hysterectomy Social history: Lives in [facility] and denies smoking, alcohol, drug use Home medications: carbamazepine, lisinopril, gabapentin, baclofen Review of systems Patient seen and examined at the bedside. Patient is alert and oriented to time, place and person. Patient does not report lower back pain while in the bed in the semi-recumbent position. No pain of trigeminal neuralgia. patient has a colostomy bag in the left lumbar quadrant of the abdomen. P. Physical therapy evaluated the patient and recommended SNF at discharge. Patient had elevated blood pressure, dose of nifedipine increased to 60mg daily, carvedilol 6.25mg bid po added. Objective vital signs Vital Sign Date Time Temp Pulse Resp B/P (MAP) Pulse Ox O2 Delivery O2 Flow Rate FiO2 04/26/24 18:00 173/70 04/26/24 17:28 98.2 79 16 96 98.2 04/25/24 20:00 Room Air* 0 N/A Nasal Cannula* Total Intake and Output 04/25/24 04/25/24 04/26/24 15:00 23:00 07:00 Intake Total 350 ml 800 ml Output Total 500 ml 700 ml Balance -150 ml 100 ml medications Current Medications Medications Dose Ordered Sig/Rojelio Route Start Time Stop Time Status Last Admin Dose Admin Atorvastatin Calcium 20 mg HS PO 04/24/24 22:00 04/25/24 22:04 20 MG Acetaminophen/ Hydrocodone Bitart 1 tab Q4HP PRN PO 04/24/24 00:30 Ondansetron HCl 4 mg Q4HP PRN IV 04/24/24 00:30 Enoxaparin Sodium 40 mg DAILY SC 04/24/24 10:00 04/26/24 09:25 40 MG Acetaminophen 650 mg Q6HP PRN PO 04/24/24 00:30 04/25/24 22:12 650 MG Morphine Sulfate 2 mg Q4HPRN PRN IV 04/24/24 00:30 Gabapentin 200 mg HS PO 04/24/24 22:00 04/25/24 22:04 200 MG Gabapentin 100 mg DAILY PO 04/25/24 10:00 04/26/24 09:20 100 MG Carbamazepine 100 mg DAILY PO 04/25/24 10:00 04/26/24 09:19 100 MG Clonidine HCl 0.1 mg Q6HP PRN PO 04/24/24 18:00 04/26/24 16:33 0.1 MG Carbamazepine 200 mg HS PO 04/24/24 22:00 04/25/24 22:05 200 MG Lisinopril 10 mg QAM PO 04/25/24 07:00 04/26/24 05:58 10 MG Lisinopril 10 mg HS PO 04/25/24 22:00 04/25/24 22:06 10 MG Ceftriaxone Sodium 50 ml @ 100 mls/hr DAILY@09 IV 04/25/24 16:00 04/26/24 09:19 100 MLS/HR Nifedipine 30 mg DAILY PO 04/24/24 22:00 04/26/24 09:22 30 MG Aspirin 81 mg DAILY PO 04/25/24 10:00 04/26/24 09:21 81 MG Baclofen 10 mg DAILY PO 04/25/24 18:00 04/26/24 09:20 10 MG Carvedilol 6.25 mg Q12HR PO 04/26/24 22:00 Examination Physical Examination Gen - no pallor, no icterus, no cyanosis, no clubbing, no LAD, no edema . Skin - Patients skin is warm and dry.. HEENT - normocephalic, atraumatic, moist mucous membranes. Neck - full ROM, no LAD, no JVD. Pulmonary - B/L vesicular breath sounds. no crackles , no wheezing, no stridor. cardiovascular - normal S1,S2 heard. RUSB systolic murmur heard. peripheral pulses normal radial 2+, pedal 2+. capillary refill normal <2 secs. GI - soft abdomen without tenderness to palpation . no hepatospleenomegaly. bowel sounds normoactive. Neurological - Patient is A/O X 3 . Bilateral upper extremity strength 3/5, bilateral lower extremity strength 3/5, no facial droop, normal speech, no tremor, no sensory deficiets. laboratory and microbiology Laboratory Tests 04/25/24 05:08 Test 04/25/24 05:08 Range/Units Serum Glucose 99 74-106 mg/dL Microbiology Date/Time Source Procedure Growth Status 04/24/24 17:50 Urine - [place] Urine Culture - Preliminary Resulted Labs and/or images reviewed: Labs reviewed by me, Image(s) reviewed by me Problem List/Assessment/Plan Problem List/Assessment/Plan Assessment and plan # Acute Lower Back Pain likely d/t Mechanical fall # H/o degenerative disc disease with sciatica - lumbar CT shows no acute fracture or subluxation, [id number] compression deformity seen throughout the lumbar spine of unknown chronicity but most likely non use, multilevel degenerative disc disease with calcified disc bulges at least mild spinal canal stenosis. Moderate to severe bilateral osseous neural foraminal narrowing. - patient given one dose of Solu Medrol 125mg iV - Pain control with as needed meds - Ketorolac for breakthrough pain - scheduled baclofen 10mg daily in the evening - Physical therapy evaluated patient and recommends SNF at discharge # Trigeminal neuralgia - patient on carbamazepine 100mg am and 200 mg pm - on scheduled gabapentin 100mg daily am and 200mg hs # H/o PAD S/P angioplasty - on aspirin 81mg # Uncontrolled Hypertension - On lisinopril 10mg bid - metoprolol succinate stopped on 04/26 - nifedipine 30mg daily - carvedilol 6.25mg bid started 04/26 - clonidine PRN if SBP>150mmhg # UTI likely Acute cystitis - UA likely 1+LE, increased Urine WBCs, few bacteria seen - on ceftriaxone 1g IV daily DVT prophylaxis : enoxaparin 40 mg SC daily [employer] team is following to arrange for placement upon discharge Plan discussed with Plan discussed with: Patient, Son, Other (RN ( Kathie )) Addendum Addendum Addendum I was physically present for the pereira portions of the service provided to patient by THE RESIDENT. I have reviewed the documentation, discussed the case with resident and agree with the resident's documentation except as noted. Also the patient's clinical case was discussed with the patient's nurse. This medical document was created using an electronic medical record system with computerized dictation system. Although this document has been carefully reviewed, there might still be some phonetic and typographical errors. These areas are purely typographical due to imperfections of the software programs, and do not reflect any compromise in the patient's medical care. Late signature. Date of Service: Apr 26, 2024 Billing Provider: MERVIN RAMOS MD Common Visit Codes: [id number] INP/OBS CARE(HIGH) JONN HOUGH RESIDENT Apr 26, 2024 18:11 MERVIN RAMOS MD Apr 27, 2024 06:07
[2024-04-26] MEDS: CARVEDILOL 3.125 MG TAB PO SCH (21:40)
[2024-04-26] MEDS: LACTULOSE 20Gm/30ML SOLN PO ONE (22:38)
[2024-04-26] MEDS: DOCUSATE SOD 100 MG CAP PO ONE (22:38)
[2024-04-26] MEDS ORDERED: LACTULOSE 20Gm/30ML SOLN PO PRN (23:00)
[2024-04-27] VITALS (11 sets, daily range): BP systolic 136–183; BP diastolic 51–97; PULSE 68–117; RESP 16–18; TEMP 98–99.7; O2SAT 92–97
[2024-04-27] MEDS: HYDROcodone-ACET 5/325MG TAB PO PRN (01:07)
--- NOTE | 2024-04-27 01:58 | DVHNC2 ---
KHARI BRUNO RESIDENT 04/27/24 0158: Procedure - Procedure Note: Manual Disimpaction for Colostomy Stump Severe Obstipation Hospitalization: Ms. Sanderson, a 88-year-old pleasant female with a medical history of degenerative disc disease, sciatica, trigeminal neuralgia, lupus, PAD, hypertension and medical history of past surgical history includes a colostomy, angioplasty, appendectomy, and hysterectomy presented to the ED with worsening lower back pain for 2 days. She resides in an assisted care facility and experienced recent fall, leading to severe lower back pain radiating to her lower limbs, causing difficulty walking. She denies sensory loss, numbness, tingling, chest pain, shortness of breath, fever, nausea, or vomiting. A lumbar CT showed no acute fracture but revealed severe degenerative disc disease and spinal stenosis. Reason for evaluation by Physical Sciences Instructor residents: Constipation, pain abdomen 10/10 in Left Upper Quadrant, localized swelling with red and angry colostomy stump. Patient became visibly highly distressed. RN team asked for bedside evaluation and management. Evaluated the patient at bedside with PGY 1 Dr. Hoff along with the nursing staffs around 1 am of 04/27/2024. Preparation: -Informed consent was obtained from the patient. -The patient was positioned in the left lateral decubitus position. -Personal protective equipment (PPE) was worn by the healthcare provider. -Lubricant and gloves were prepared. -The colostomy bag was removed. Examination: -Abdominal examination was performed to assess the presence and extent of fecal impaction. -The colostomy site was inspected for signs of necrosis or vascular compromise. -Red angry stump mucosa and engaged mucosa noted. -Round bulged hard stool burden noted with round hard globe like swelling below the stump of almost 5inches of diameter. -Patient was crying in severe pain. Steps: -Lubricated gloved fingers were gently inserted into the stoma but found it to be harder than it seemed. -Firm, gentle pressure was applied with small tip spatula to break up and remove the impacted fecal matter in 4 of the quadrant. -The procedure was repeated until the obstruction was relieved and normal output resumed. -Large burden of stool impaction cleared over next minutes. -Finally the patient started having torrential output of softer and liquid stool burden. -0.9% Sterile saline and bedside suction apparatus used to dislodge other -No immediate complications were noted during the procedure. No blood loss or injury or immediate perforation noted. -the patient reported immediate relief of pain and discomfort with the disappearance of the globe like distension. Post-Procedure Care: -Pain medication to relief from pain. -Skin and local area to be cleaned. -The patient was advised to increase fluid intake and dietary fiber to prevent recurrence. -30 ml of lactulose added one time. -The colostomy bag was reattached and monitored for normal output. -Non contrast CT abdomen pelvis to note any obstruction or anatomic extension of the obstipation. Follow up: 1. A follow-up assessment to reassess bowel function and stoma health in AM. 2. The patient was monitored for signs of bleeding, infection, or perforation. 3. Follow up the CT abdomen for further details and call surgery consult if noted anatomical aberration. 4. Continued monitoring and preventive measures were recommended. 5. No visible infection noted, on IV ceftriaxone, If signs of peristomal infection noted, please cover appropriately for gram -ve, anaerobes, gram +ve's including skin berta. Conclusion: The manual disimpaction was successfully performed, and the patient experienced relief from symptoms. Highly appreciate bedside assistance of RN and Nursing team. Discussed with Dr. Doty. NED DOTY MD 04/28/242122: Date of Service: Apr 27, 2024 Billing Provider: NED DOTY MD Common Visit Codes: PROCEDURE ONLY Secondary Visit Codes: [id number] E&M SERVICE KHARI BRUNO RESIDENT Apr 27, 2024 01:58 NED DOTY MD Apr 28, 2024 21:23
[2024-04-27] MEDS: hydrALAZINE HCL 20 MG/ML VL IV ONE (03:03)
[2024-04-27 06:28] LABS: Basophils # (auto) 0.1 10 ^3/uL (0-0.2); Basophils % (auto) 0.9 % (0.0-2.0); Eosinophils # (auto) 0 10 ^3/uL (0-0.8); Eosinophils % (auto) 0.4 % (0.0-7.0); Hemoglobin 12.1 g/dL (12.2-16.2); Lymphocytes # (auto) 0.5 10 ^3/uL (0.4-5.4); Lymphocytes % (auto) 8.3 % (10.0-50.0); Mean Corpuscular Hemoglobin 28.8 pg (28.0-32.0); Mean Corpuscular Hgb Conc. 32.7 g/dL (32.0-36.0); Mean Corpuscular Volume 88.1 fL (80.0-100.0); Monocytes # (auto) 0.5 10 ^3/uL (0-1.3); Monocytes % (auto) 8.6 % (0.0-12.0); Neutrophils # (auto) 4.8 10 ^3/uL (1.6-8.6); Neutrophils % (auto) 81.8 % (37.0-80.0); Nucleated Red Blood Cells % 0.1 %; Platelet Count (auto) 254 10^3/uL (140-450); Red Cell Distribution Width 16.9 % (11.8-14.3); White Blood Cell 5.8 10^3/uL (4.4-10.8)
[2024-04-27 06:40] LABS: Chloride 102 mmol/L (98-107); Potassium 3.8 mmol/L (3.5-5.1); Sodium 138 mmol/L (136-145)
[2024-04-27 06:41] LABS: Anion Gap 14 (5-15); Carbon Dioxide 22 mmol/L (20-31)
[2024-04-27 06:42] LABS: Calcium 9.4 mg/dL (8.7-10.4)
[2024-04-27 06:47] LABS: BUN/Creatinine Ratio 23.5 (10.0-20.0); Blood Urea Nitrogen 23 mg/dL (9-23); Glucose 100 mg/dL (74-106)
[2024-04-27] MEDS: NIFEdipine ER 30 MG TAB PO SCH (09:51)
--- NOTE | 2024-04-27 09:52 | DVH ---
CLINICAL INFORMATION: 88 years old, Female; abdominal pain, colostomy, constipation. TECHNIQUE: Axial CT images of the abdomen and pelvis were obtained without IV contrast. Coronal and sagittal reformatted images were obtained, reviewed, and stored. Evaluation of the parenchymal organs is limited without IV contrast. Evaluation of the bowel and mesentery is limited without oral contra st. All CT scans at this medical facility are performed using dose modulation techniques as appropria te to a performed exam including the following: Automated exposure control was utilized; adjustment o f the MA and/or KV according to patient size; and use of iterative reconstruction technique. CTDIvol = 5.31 mGy DLP = 229.14 mGy-cm COMPARISON: None FINDINGS: Lung bases: Atelectasis in the lung bases. Respiratory motion artifact limits evaluation. Likely mode rate emphysematous changes. Nodular opacity in the left lower lobe measuring up to 0.8 cm. Liver: Small fluid density lesions in the right hepatic lobe measuring up to 1 cm, likely cysts, alt tomas not optimally evaluated on noncontrast enhanced exam. Biliary: Postsurgical changes of prior cholecystectomy. Spleen: Unremarkable. Pancreas: Grossly unremarkable in its noncontrast enhanced appearance. Adrenal glands: Unremarkable. No mass. Kidneys: Small nonobstructing calculi in the lower pole of the right kidney. No hydronephrosis or obs tructing calculi visualized. Aorta/Vascular: Dense arterial calcification. No abdominal aortic aneurysm. Retroperitoneum: No mass or lymphadenopathy. Bowel/mesentery: Nonspecific mildly distended fluid-filled small bowel loops. No transition point vis ualized to suggest small bowel obstruction. Motion artifact limits evaluation. There is a left lower quadrant colostomy and Islas's pouch. Pelvic organs: Uterus is surgically absent. Bladder: Malave catheter extends into the bladder Abdominal wall: Postsurgical changes of prior ventral hernia repair with mesh. Bones: No acute fracture or suspicious intraosseous lesion. Chronic appearing compression deformities are seen at T12, L2, L3, and L4. IMPRESSION: 1. Motion limited study. 2. Nonspecific mildly distended fluid-filled small bowel loops. Findings may be seen with ileus or en teritis in the appropriate clinical setting. No focal transition point identified to suggest small laurie wel obstruction, however very limited evaluation due to motion artifact. 3. Sequelae of postsurgical changes as described above. 4. Nodular opacity in the left lower lobe, not well characterized due to motion artifact. May be infe ctious or inflammatory in nature or pulmonary nodule. Correlate with clinical findings. CT chest coul d be obtained to further characterize.
--- NOTE | 2024-04-27 15:01 | DVHPNRES ---
Progress Note Date Seen: Apr 27, 2024 Resident Creating Document: FELICIA VALDEZ RESIDENT Medical Necessity Reason Pt with a Central, PICC or Fol: Yes Subjective Review of Systems Patient seen and examined at the bedside. Patient is alert and oriented to time, place and person. patient has a colostomy bag in the left lumbar quadrant of the abdomen. Physical therapy evaluated the patient and recommended SNF at discharge. Patient had elevated blood pressure, now improved Objective vital signs Vital Sign Date Time Temp Pulse Resp B/P (MAP) Pulse Ox O2 Delivery O2 Flow Rate FiO2 04/27/24 10:50 80 136/70 04/27/24 08:36 98.1 16 92 98.1 04/27/24 08:00 Room Air* 0 N/A Nasal Cannula* Total Intake and Output 04/26/24 04/26/24 04/27/24 15:00 23:00 07:00 Intake Total 50 ml 600 ml 350 ml Output Total 550 ml 550 ml Balance 50 ml 50 ml -200 ml medications Current Medications Medications Dose Ordered Sig/Rojelio Route Start Time Stop Time Status Last Admin Dose Admin Atorvastatin Calcium 20 mg HS PO 04/24/24 22:00 04/26/24 21:38 20 MG Acetaminophen/ Hydrocodone Bitart 1 tab Q4HP PRN PO 04/24/24 00:30 04/27/24 01:07 1 TAB Ondansetron HCl 4 mg Q4HP PRN IV 04/24/24 00:30 Enoxaparin Sodium 40 mg DAILY SC 04/24/24 10:00 04/27/24 09:48 40 MG Acetaminophen 650 mg Q6HP PRN PO 04/24/24 00:30 04/26/24 19:31 650 MG Morphine Sulfate 2 mg Q4HPRN PRN IV 04/24/24 00:30 Gabapentin 200 mg HS PO 04/24/24 22:00 04/26/24 21:38 200 MG Gabapentin 100 mg DAILY PO 04/25/24 10:00 04/27/24 09:49 100 MG Carbamazepine 100 mg DAILY PO 04/25/24 10:00 04/27/24 09:49 100 MG Clonidine HCl 0.1 mg Q6HP PRN PO 04/24/24 18:00 04/26/24 16:33 0.1 MG Carbamazepine 200 mg HS PO 04/24/24 22:00 04/26/24 21:49 200 MG Lisinopril 10 mg QAM PO 04/25/24 07:00 04/27/24 05:43 10 MG Lisinopril 10 mg HS PO 04/25/24 22:00 04/26/24 21:39 10 MG Ceftriaxone Sodium 50 ml @ 100 mls/hr DAILY@09 IV 04/25/24 16:00 04/27/24 09:48 100 MLS/HR Aspirin 81 mg DAILY PO 04/25/24 10:00 04/27/24 09:48 81 MG Baclofen 10 mg DAILY PO 04/25/24 18:00 04/27/24 09:49 10 MG Carvedilol 6.25 mg Q12HR PO 04/26/24 22:00 04/27/24 09:50 6.25 MG Nifedipine 60 mg DAILY PO 04/27/24 10:00 04/27/24 09:51 60 MG Lactulose 30 ml BIDPRN PRN PO 04/26/24 23:00 Hydralazine HCl 10 mg Q6HP PRN IV 04/27/24 02:00 Examination Gen - no pallor, no icterus, no cyanosis, no clubbing, no LAD, no edema . Skin - Patients skin is warm and dry.. HEENT - normocephalic, atraumatic, moist mucous membranes. Neck - full ROM, no LAD, no JVD. Pulmonary - B/L vesicular breath sounds. no crackles , no wheezing, no stridor. cardiovascular - normal S1,S2 heard. RUSB systolic murmur heard. peripheral pulses normal radial 2+, pedal 2+. capillary refill normal <2 secs. GI - soft abdomen without tenderness to palpation . no organomegaly bowel sounds normoactive. Neurological - Patient is A/O X 3 . Bilateral upper extremity strength 3/5, bilateral lower extremity strength 3/5, no facial droop, normal speech, no tremor, no sensory deficits. laboratory and microbiology Laboratory Tests 04/27/24 05:47 Test 04/27/24 05:47 Range/Units Serum Glucose 100 74-106 mg/dL Microbiology Date/Time Source Procedure Growth Status 04/24/24 17:50 Urine - [place] Urine Culture - Preliminary Resulted Labs and/or images reviewed: Labs reviewed by me, Image(s) reviewed by me Problem List/Assessment/Plan Problem List/Assessment/Plan # Acute Lower Back Pain likely d/t Mechanical fall # H/o degenerative disc disease with sciatica - lumbar CT shows no acute fracture or subluxation, [id number] compression deformity seen throughout the lumbar spine of unknown chronicity but most likely non use, multilevel degenerative disc disease with calcified disc bulges at least mild spinal canal stenosis. Moderate to severe bilateral osseous neural foraminal narrowing. - Pain control with as needed meds - Ketorolac for breakthrough pain - scheduled baclofen 10mg daily in the evening - Physical therapy evaluated patient and recommends SNF at discharge # Trigeminal neuralgia - patient on carbamazepine 100mg am and 200 mg pm - on scheduled gabapentin 100mg daily am and 200mg hs # H/o PAD S/P angioplasty - on aspirin 81mg # Uncontrolled Hypertension - On lisinopril 10mg bid - metoprolol succinate stopped on 04/26 - nifedipine 30mg daily - carvedilol 6.25mg bid started 04/26 - clonidine PRN if SBP>150mmhg # UTI likely Acute cystitis - UA likely 1+LE, increased Urine WBCs, few bacteria seen - on ceftriaxone 1g IV daily DVT prophylaxis : enoxaparin 40 mg SC daily [employer] team is following to arrange for placement upon discharge, still pending Plan discussed with Plan discussed with: Patient, Other (RN) My Orders My Orders Orders - FELICIA VALDEZ RESIDENT Procedure Category Date Status Time Carvedilol Tablet PHA 04/26/24 In Process (Coreg Tablet) 22:00 Ct Ab Pel Wo Con-No CT 04/27/24 Resulted Oral Or Iv 08:14 Addendum Addendum Addendum I was physically present for the pereira portions of the service provided to patient by THE RESIDENT. I have reviewed the documentation, discussed the case with resident and agree with the resident's documentation except as noted. Also the patient's clinical case was discussed with the patient's nurse. This medical document was created using an electronic medical record system with computerized dictation system. Although this document has been carefully reviewed, there might still be some phonetic and typographical errors. These areas are purely typographical due to imperfections of the software programs, and do not reflect any compromise in the patient's medical care. Late signature. Date of Service: Apr 27, 2024 Billing Provider: MERVIN RAMOS MD Common Visit Codes: [id number] INP/OBS CARE(HIGH) FELICIA VALDEZ RESIDENT Apr 27, 2024 15:01 MERVIN RAMOS MD Apr 28, 2024 21:46
[2024-04-28] VITALS (7 sets, daily range): BP systolic 111–151; BP diastolic 58–82; PULSE 74–107; RESP 17–20; TEMP 98–99.1; O2SAT 92–96
[2024-04-28] MEDS: hydrALAZINE HCL 20 MG/ML VL IV PRN (01:19)
[2024-04-28 07:10] LABS: Anion Gap 12 (5-15); Carbon Dioxide 22 mmol/L (20-31); Chloride 104 mmol/L (98-107); Potassium 3.9 mmol/L (3.5-5.1); Sodium 138 mmol/L (136-145)
[2024-04-28 07:11] LABS: Calcium 8.9 mg/dL (8.7-10.4)
[2024-04-28 07:16] LABS: BUN/Creatinine Ratio 29.1 (10.0-20.0); Glucose 91 mg/dL (74-106)
[2024-04-28 07:38] LABS: Blood Urea Nitrogen 32 mg/dL (9-23)
--- NOTE | 2024-04-28 18:44 | DVHPNRES ---
Progress Note Date Seen: Apr 28, 2024 Resident Creating Document: PINGJANESSAVICKEYTREY RESIDENT Medical Necessity Reason Pt with a Central, PICC or Fol: Yes Subjective Review of Systems Patient is a 88-year-old female with a past medical history of degenerative disc disease with sciatica, trigeminal neuralgia, lupus, PAD, hypertension came to the ED for a chief complaint of worsening lower back pain for 2 days prior to admission. Patient reports that she lives in [facility] for about 6 years and was apparently doing well when she fell down, reportedly lost balance but did not loose consciousness and since then had started having back pain which was initially tolerable and since 2 days before admission had severe lower back pain radiating intermittently to her lower limbs and had difficulty walking. Patient denies sensory loss, numbness or tingling. patient had chronic urinary incontinence but denies rectal incontinence. denies chest pain, shortness of breath, abdominal pain, nausea or vomiting. Lumbar CT without contrast showed No acute fracture or subluxation. Moderate to severe compression deformity seen throughout the lumbar spine of unknown chronicity but most likely nonacute. Severe multilevel degenerative disc disease with calcified disc bulges and at least mild spinal canal stenosis. There is moderate to severe bilateral osseous neural foraminal narrowing. Past medical history: as per HPI Past surgical history: Ruptured colon s/p colostomy about 15 years ago, S/P angioplasty left anterior tibial and peroneal artery , appendicectomy, hysterectomy Social history: Lives in [facility] and denies smoking, alcohol, drug use Home medications: carbamazepine, lisinopril, gabapentin, baclofen Review of systems Patient seen and examined at the bedside. Patient is alert and oriented to time, place and person. Patient does not report lower back pain while in the bed in the semi-recumbent position. No pain of trigeminal neuralgia. patient has a colostomy bag in the left lumbar quadrant of the abdomen with brownish liquid in the bag. Physical therapy evaluated the patient and recommended SNF at discharge. Patient's blood pressure has been SBP<150mmhg over the last 24 hrs. Objective vital signs Vital Sign Date Time Temp Pulse Resp B/P (MAP) Pulse Ox O2 Delivery O2 Flow Rate FiO2 04/28/24 17:00 98.4 74 17 139/58 (85) 93 98.4 04/28/24 08:30 Room Air* 0 21 Total Intake and Output 04/27/24 04/27/24 04/28/24 15:00 23:00 07:00 Intake Total 50 ml 250 ml 0 ml Output Total 250 ml Balance 50 ml 250 ml -250 ml medications Current Medications Medications Dose Ordered Sig/Rojelio Route Start Time Stop Time Status Last Admin Dose Admin Atorvastatin Calcium 20 mg HS PO 04/24/24 22:00 04/27/24 21:52 20 MG Acetaminophen/ Hydrocodone Bitart 1 tab Q4HP PRN PO 04/24/24 00:30 04/27/24 01:07 1 TAB Ondansetron HCl 4 mg Q4HP PRN IV 04/24/24 00:30 Enoxaparin Sodium 40 mg DAILY SC 04/24/24 10:00 04/28/24 11:07 40 MG Acetaminophen 650 mg Q6HP PRN PO 04/24/24 00:30 04/26/24 19:31 650 MG Morphine Sulfate 2 mg Q4HPRN PRN IV 04/24/24 00:30 Gabapentin 200 mg HS PO 04/24/24 22:00 04/27/24 21:52 200 MG Gabapentin 100 mg DAILY PO 04/25/24 10:00 04/28/24 11:29 100 MG Carbamazepine 100 mg DAILY PO 04/25/24 10:00 04/28/24 11:06 100 MG Clonidine HCl 0.1 mg Q6HP PRN PO 04/24/24 18:00 04/26/24 16:33 0.1 MG Carbamazepine 200 mg HS PO 04/24/24 22:00 04/27/24 21:52 200 MG Lisinopril 10 mg QAM PO 04/25/24 07:00 04/27/24 05:43 10 MG Lisinopril 10 mg HS PO 04/25/24 22:00 04/27/24 22:02 10 MG Ceftriaxone Sodium 50 ml @ 100 mls/hr DAILY@09 IV 04/25/24 16:00 04/28/24 08:32 100 MLS/HR Aspirin 81 mg DAILY PO 04/25/24 10:00 04/28/24 11:07 81 MG Baclofen 10 mg DAILY PO 04/25/24 18:00 04/28/24 11:06 10 MG Carvedilol 6.25 mg Q12HR PO 04/26/24 22:00 04/28/24 11:06 6.25 MG Nifedipine 60 mg DAILY PO 04/27/24 10:00 04/28/24 11:05 60 MG Lactulose 30 ml BIDPRN PRN PO 04/26/24 23:00 Hydralazine HCl 10 mg Q6HP PRN IV 04/27/24 02:00 04/28/24 01:19 10 MG Examination Physical Examination Gen - no pallor, no icterus, no cyanosis, no clubbing, no LAD, no edema . Skin - Patients skin is warm and dry.. HEENT - normocephalic, atraumatic, moist mucous membranes. Neck - full ROM, no LAD, no JVD. Pulmonary - B/L vesicular breath sounds. no crackles , no wheezing, no stridor. cardiovascular - normal S1,S2 heard. RUSB systolic murmur heard. peripheral pulses normal radial 2+, pedal 2+. capillary refill normal <2 secs. GI - soft abdomen without tenderness to palpation . no hepatospleenomegaly. bowel sounds normoactive. Neurological - Patient is A/O X 3 . Bilateral upper extremity strength 3/5, bilateral lower extremity strength 3/5, no facial droop, normal speech, no tremor, no sensory deficiets. laboratory and microbiology Laboratory Tests 04/28/24 06:09 04/27/24 05:47 Test 04/28/24 06:09 Range/Units Serum Glucose 91 74-106 mg/dL Microbiology Date/Time Source Procedure Growth Status 04/24/24 17:50 Urine - [place] Urine Culture - Preliminary Resulted Labs and/or images reviewed: Labs reviewed by me, Image(s) reviewed by me Problem List/Assessment/Plan Problem List/Assessment/Plan Assessment and plan # Acute Lower Back Pain likely d/t Mechanical fall # H/o degenerative disc disease with sciatica - lumbar CT shows no acute fracture or subluxation, [id number] compression deformity seen throughout the lumbar spine of unknown chronicity but most likely non use, multilevel degenerative disc disease with calcified disc bulges at least mild spinal canal stenosis. Moderate to severe bilateral osseous neural foraminal narrowing. - patient given one dose of Solu Medrol 125mg iV - Pain control with as needed meds - Ketorolac for breakthrough pain - scheduled baclofen 10mg daily in the evening - Physical therapy evaluated patient and recommends SNF at discharge # Trigeminal neuralgia - patient on carbamazepine 100mg am and 200 mg pm - on scheduled gabapentin 100mg daily am and 200mg hs # H/o PAD S/P angioplasty - on aspirin 81mg # Uncontrolled Hypertension - On lisinopril 10mg bid - metoprolol succinate stopped on 04/26 - nifedipine 30mg daily - carvedilol 6.25mg bid started 04/26 - clonidine PRN if SBP>150mmhg # Sepsis due to UTI likely Acute cystitis - UA likely 1+LE, increased Urine WBCs, few bacteria seen - Urine culture shows >100,000cfu yeast, fluconazole one dose given. - on ceftriaxone 1g IV daily DVT prophylaxis : enoxaparin 40 mg SC daily 04/28- renal social worker has been consulted regarding the placement to SNF for physical therapy for rehab. Follow up tomorrow with renal social worker. Plan discussed with Plan discussed with: Patient, Son (jacinto), Other (RN ( Ruth )) Dietary Evaluation Review Comments: 1. Continue current diet regime Expected Outcomes/Goals: 1. Pt will consume >75% of estimated needs within 3-5 days Addendum Addendum Addendum I was physically present for the pereira portions of the service provided to patient by THE RESIDENT. I have reviewed the documentation, discussed the case with resident and agree with the resident's documentation except as noted. Also the patient's clinical case was discussed with the patient's nurse. This medical document was created using an electronic medical record system with computerized dictation system. Although this document has been carefully reviewed, there might still be some phonetic and typographical errors. These areas are purely typographical due to imperfections of the software programs, and do not reflect any compromise in the patient's medical care. Late signature. Date of Service: Apr 28, 2024 Billing Provider: MERVIN RAMOS MD Common Visit Codes: [id number] INP/OBS CARE(HIGH) JONN HOUGH RESIDENT Apr 28, 2024 18:44 MERVIN RAMOS MD Apr 29, 2024 05:51
[2024-04-28] MEDS: FLUCONAZOLE 100 MG TAB PO ONE (19:34)
[2024-04-29] VITALS (7 sets, daily range): BP systolic 122–138; BP diastolic 51–74; PULSE 66–83; RESP 16–17; TEMP 97.9–98.4; O2SAT 90–95
[2024-04-29] MEDS: ONDANSETRON HCL 4 MG/2 ML VIAL IV PRN (05:57)
[2024-04-29 06:48] LABS: Chloride 104 mmol/L (98-107); Potassium 3.9 mmol/L (3.5-5.1)
[2024-04-29 06:49] LABS: Anion Gap 9 (5-15); Carbon Dioxide 23 mmol/L (20-31)
[2024-04-29 06:54] LABS: BUN/Creatinine Ratio 34.8 (10.0-20.0); Glucose 101 mg/dL (74-106)
[2024-04-29 06:56] LABS: Blood Urea Nitrogen 39 mg/dL (9-23); Calcium 8.4 mg/dL (8.7-10.4); Sodium 136 mmol/L (136-145)
[2024-04-29] MEDS: SODIUM CHLORIDE 0.9% 250 ML IV ONE (13:17)
[2024-04-29 16:01] LABS: Chloride 102 mmol/L (98-107); Potassium 4.5 mmol/L (3.5-5.1); Sodium 133 mmol/L (136-145)
[2024-04-29 16:02] LABS: Anion Gap 9 (5-15); Carbon Dioxide 22 mmol/L (20-31)
[2024-04-29 16:03] LABS: Calcium 8.1 mg/dL (8.7-10.4)
[2024-04-29 16:07] LABS: Glucose 108 mg/dL (74-106)
[2024-04-29 16:08] LABS: BUN/Creatinine Ratio 27.9 (10.0-20.0); Blood Urea Nitrogen 36 mg/dL (9-23)
[2024-04-29] MEDS: FLUCONAZOLE 100 MG TAB PO ONE (18:34)
[2024-04-29 19:30] LABS: Protein, Urine 67.9 mg/dL (1-14)
[2024-04-29 19:32] LABS: Creatinine, Urine 116.25 mg/dL (30.0-125.0); Urine Protein/Creatinine Ratio 0.58
--- NOTE | 2024-04-29 19:51 | DVHPNRES ---
Progress Note Date Seen: Apr 29, 2024 Resident Creating Document: FRANCEJONN RESIDENT Medical Necessity Reason Pt with a Central, PICC or Fol: Yes Subjective Review of Systems Patient is a 88-year-old female with a past medical history of degenerative disc disease with sciatica, trigeminal neuralgia, lupus, PAD, hypertension came to the ED for a chief complaint of worsening lower back pain for 2 days prior to admission. Patient reports that she lives in [facility] for about 6 years and was apparently doing well when she fell down, reportedly lost balance but did not loose consciousness and since then had started having back pain which was initially tolerable and since 2 days before admission had severe lower back pain radiating intermittently to her lower limbs and had difficulty walking. Patient denies sensory loss, numbness or tingling. patient had chronic urinary incontinence but denies rectal incontinence. denies chest pain, shortness of breath, abdominal pain, nausea or vomiting. Lumbar CT without contrast showed No acute fracture or subluxation. Moderate to severe compression deformity seen throughout the lumbar spine of unknown chronicity but most likely nonacute. Severe multilevel degenerative disc disease with calcified disc bulges and at least mild spinal canal stenosis. There is moderate to severe bilateral osseous neural foraminal narrowing. Past medical history: as per HPI Past surgical history: Ruptured colon s/p colostomy about 15 years ago, S/P angioplasty left anterior tibial and peroneal artery , appendicectomy, hysterectomy Social history: Lives in [facility] and denies smoking, alcohol, drug use Home medications: carbamazepine, lisinopril, gabapentin, baclofen Review of systems Patient seen and examined at the bedside. Patient is alert and oriented to time, place and person. Patient does not report lower back pain while in the bed. No pain of trigeminal neuralgia. patient has a colostomy bag in the left lumbar quadrant of the abdomen with brownish liquid in the bag. Physical therapy evaluated the patient and recommended SNF at discharge. Patient's blood pressure has been SBP<140mmhg over the last 24 hrs. patient has mild TIANA for which IV fluids have been given. Objective vital signs Vital Sign Date Time Temp Pulse Resp B/P (MAP) Pulse Ox O2 Delivery O2 Flow Rate FiO2 04/29/24 17:00 98.0 66 17 127/51 (76) 93 98.0 04/29/24 08:00 Room Air* 0 21 Total Intake and Output 12/1/24 12/1/24 12/2/24 15:00 23:00 07:00 Intake Total 50 ml 118 ml 540 ml Output Total 150 ml 600 ml Balance 50 ml -32 ml -60 ml medications Current Medications Medications Dose Ordered Sig/Rojelio Route Start Time Stop Time Status Last Admin Dose Admin Atorvastatin Calcium 20 mg HS PO 04/24/24 22:00 04/28/24 21:48 20 MG Acetaminophen/ Hydrocodone Bitart 1 tab Q4HP PRN PO 04/24/24 00:30 04/29/24 05:58 1 TAB Ondansetron HCl 4 mg Q4HP PRN IV 04/24/24 00:30 04/29/24 05:57 4 MG Enoxaparin Sodium 40 mg DAILY SC 04/24/24 10:00 04/29/24 09:55 40 MG Acetaminophen 650 mg Q6HP PRN PO 04/24/24 00:30 04/26/24 19:31 650 MG Morphine Sulfate 2 mg Q4HPRN PRN IV 04/24/24 00:30 Gabapentin 200 mg HS PO 04/24/24 22:00 04/28/24 21:47 200 MG Gabapentin 100 mg DAILY PO 04/25/24 10:00 04/28/24 11:29 100 MG Carbamazepine 100 mg DAILY PO 04/25/24 10:00 04/29/24 09:53 100 MG Clonidine HCl 0.1 mg Q6HP PRN PO 04/24/24 18:00 04/26/24 16:33 0.1 MG Carbamazepine 200 mg HS PO 04/24/24 22:00 04/28/24 21:57 200 MG Lisinopril 10 mg QAM PO 04/25/24 07:00 Hold 04/29/24 05:58 10 MG Lisinopril 10 mg HS PO 04/25/24 22:00 Hold 04/28/24 21:48 10 MG Ceftriaxone Sodium 50 ml @ 100 mls/hr DAILY@09 IV 04/25/24 16:00 04/29/24 09:52 100 MLS/HR Aspirin 81 mg DAILY PO 04/25/24 10:00 04/29/24 09:53 81 MG Carvedilol 6.25 mg Q12HR PO 04/26/24 22:00 04/29/24 10:02 6.25 MG Nifedipine 60 mg DAILY PO 04/27/24 10:00 04/29/24 10:03 60 MG Lactulose 30 ml BIDPRN PRN PO 04/26/24 23:00 Hydralazine HCl 10 mg Q6HP PRN IV 04/27/24 02:00 04/28/24 01:19 10 MG Baclofen 5 mg DAILY PO 04/30/24 10:00 Fluconazole 200 mg DAILY PO 04/30/24 10:00 Examination Physical Examination Gen - no pallor, no icterus, no cyanosis, no clubbing, no LAD, no edema . Skin - Patients skin is warm and dry.. HEENT - normocephalic, atraumatic, moist mucous membranes. Neck - full ROM, no LAD, no JVD. Pulmonary - B/L vesicular breath sounds. no crackles , no wheezing, no stridor. cardiovascular - normal S1,S2 heard. RUSB systolic murmur heard. peripheral pulses normal radial 2+, pedal 2+. capillary refill normal <2 secs. GI - soft abdomen without tenderness to palpation . no hepatospleenomegaly. bowel sounds normoactive. Neurological - Patient is A/O X 3 . Bilateral upper extremity strength 3/5, bilateral lower extremity strength 3/5, no facial droop, normal speech, no tremor, no sensory deficiets. laboratory and microbiology Laboratory Tests 04/29/24 15:38 04/27/24 05:47 Test 04/29/24 15:38 Range/Units Serum Glucose 108 H 74-106 mg/dL Microbiology Date/Time Source Procedure Growth Status 04/24/24 17:50 Urine - [place] Urine Culture - Final Yeast, not Fatuma albicans Complete Problem List/Assessment/Plan Problem List/Assessment/Plan Assessment and plan # Acute Lower Back Pain likely d/t Mechanical fall # H/o degenerative disc disease with sciatica - lumbar CT shows no acute fracture or subluxation, [id number] compression deformity seen throughout the lumbar spine of unknown chronicity but most likely non use, multilevel degenerative disc disease with calcified disc bulges at least mild spinal canal stenosis. Moderate to severe bilateral osseous neural foraminal narrowing. - patient given one dose of Solu medrol 125mg iV - Pain control with as needed meds - Ketorolac for breakthrough pain - scheduled baclofen 10mg daily in the evening - Physical therapy evaluated patient and recommends SNF at discharge # Trigeminal neuralgia - patient on carbamazepine 100mg am and 200 mg pm - on scheduled gabapentin 100mg daily am and 200mg hs # H/o PAD S/P angioplasty - on aspirin 81mg # Uncontrolled Hypertension - On lisinopril 10mg bid - metoprolol succinate stopped on 04/26 - nifedipine 30mg daily - carvedilol 6.25mg bid started 04/26 - clonidine PRN if SBP>170mmhg # UTI likely Acute cystitis - UA likely 1+LE, increased Urine WBCs, few bacteria seen - Urine culture shows >100,000cfu yeast, fluconazole given. - on ceftriaxone 1g IV daily # TIANA likely prerenal d/t dehydration - FeNa <1% - patient is being given iV fluids DVT prophylaxis : enoxaparin 40 mg SC daily 04/29. SNF authorised bed. patient has mild TIANA and will be followed up with labs tomorrow before deciding for discharge. Goals of care discussed with patient and Son for over 35 mins. DNR Plan discussed with Plan discussed with: Patient, Son, Other (RN ( jerry )) My Orders My Orders Orders - JONN HOUGH RESIDENT Procedure Category Date Status Time Baclofen Tablet PHA 04/30/24 In Process (Liorisal Tablet) 10:00 Fluconazole Tablet PHA 04/30/24 In Process (Diflucan Tablet) 10:00 Dietary Evaluation Review Comments: 1. Continue current diet regime Expected Outcomes/Goals: 1. Pt will consume >75% of estimated needs within 3-5 days Date of Service: Apr 29, 2024 Billing Provider: SHAVONNE NUÑEZ MD Common Visit Codes: [id number] INP/OBS CARE(HIGH) JONN HOUGH RESIDENT Apr 29, 2024 19:51 SHAVONNE NUÑEZ MD May 06, 2024 00:19
[2024-04-29] MEDS: SODIUM CHLORIDE 0.9% 400 ML IV ONE (21:24)
[2024-04-30] VITALS (7 sets, daily range): BP systolic 118–137; BP diastolic 47–82; PULSE 68–78; RESP 16–18; TEMP 97.4–98.4; O2SAT 90–96
[2024-04-30 07:39] LABS: Anion Gap 8 (5-15); Carbon Dioxide 23 mmol/L (20-31); Chloride 104 mmol/L (98-107); Sodium 135 mmol/L (136-145)
[2024-04-30 07:40] LABS: Calcium 7.7 mg/dL (8.7-10.4)
[2024-04-30 07:45] LABS: BUN/Creatinine Ratio 35.4 (10.0-20.0); Blood Urea Nitrogen 35 mg/dL (9-23); Glucose 99 mg/dL (74-106)
--- NOTE | 2024-04-30 08:55 | DVH ---
CHEST RADIOGRAPH Indication: basilar rales Technique: Single frontal view of the chest was obtained COMPARISON: XY CHEST PORTABLE on DOS: 04/23/24, XY CHEST XRAY 1 VIEW on DOS: 01/31/24, CHEST PORTABLE o n DOS: 05/14/20 FINDINGS: Lines and Tubes: None Lungs: Clear Pleura: No effusion. No pneumothorax. Cardiomediastinal contours: Unremarkable Bones: Unremarkable IMPRESSION: No acute disease.
[2024-04-30] MEDS: FLUCONAZOLE 100 MG TAB PO SCH (09:29)
[2024-04-30] MEDS: BACLOFEN 10 MG TAB PO SCH (09:30)
--- NOTE | 2024-04-30 21:03 | DVHDSRES ---
Discharge Summary Date of Admission Resident Creating Document: JONN HOUGH RESIDENT Apr 23, 2024 at 23:53 Date of Discharge: Apr 30, 2024 Admitting Diagnosis Lumbar radiculopathy Acute on chronic back pain Hypertension Chronic pain syndrome Hypertension Wounds: no wounds Labs/Diagnostic Data: Laboratory Results Test 04/30/24 06:10 04/29/24 17:45 04/27/24 05:47 04/25/24 05:08 Sodium Level 135 mmol/L (136-145) Potassium Level 4.0 mmol/L (3.5-5.1) Chloride Level 104 mmol/L (98-107) Carbon Dioxide Level 23 mmol/L (20-31) Anion Gap 8 (5-15) Blood Urea Nitrogen 35 mg/dL (9-23) Creatinine 0.99 mg/dL (0.550-1.02) Glomerular Filtration Rate Calc 56 mL/min (>90) BUN/Creatinine Ratio 35.4 (10.0-20.0) Serum Glucose 99 mg/dL (74-106) Calcium Level 7.7 mg/dL (8.7-10.4) Urine Creatinine 116.25 mg/dL (30.0-125.0) Urine Protein/Creatinine Ratio 0.58 Urine Sodium 19 mmol/L (40-220) Urine Total Protein 67.9 mg/dL (1-14) White Blood Count 5.8 10^3/uL (4.4-10.8) Red Blood Count 4.20 10^6/uL (4.0-5.20) Hemoglobin 12.1 g/dL (12.2-16.2) Hematocrit 37.0 % (36.0-46.0) Mean Corpuscular Volume 88.1 fL (80.0-100.0) Mean Corpuscular Hemoglobin 28.8 pg (28.0-32.0) Mean Corpuscular Hemoglobin Concent 32.7 g/dL (32.0-36.0) Red Cell Distribution Width 16.9 % (11.8-14.3) Platelet Count 254 10^3/uL (140-450) Mean Platelet Volume 8.6 fL (6.9-10.8) Neutrophils (%) (Auto) 81.8 % (37.0-80.0) Lymphocytes (%) (Auto) 8.3 % (10.0-50.0) Monocytes (%) (Auto) 8.6 % (0.0-12.0) Eosinophils (%) (Auto) 0.4 % (0.0-7.0) Basophils (%) (Auto) 0.9 % (0.0-2.0) Neutrophils # (Auto) 4.8 10 ^3/uL (1.6-8.6) Lymphocytes # (Auto) 0.5 10 ^3/uL (0.4-5.4) Monocytes # (Auto) 0.5 10 ^3/uL (0-1.3) Eosinophils # (Auto) 0 10 ^3/uL (0-0.8) Basophils # (Auto) 0.1 10 ^3/uL (0-0.2) Nucleated Red Blood Cells 0.1 % Total Bilirubin 0.3 mg/dL (0.2-1.0) Aspartate Amino Transferase (AST) 15 U/L (13-40) Alanine Aminotransferase (ALT) 13 U/L (7-40) Alkaline Phosphatase 103 U/L (46-116) Total Protein 6.4 g/dL (5.7-8.2) Albumin 3.5 g/dL (3.2-4.8) Triglycerides Level 105 mg/dL (< 150) Cholesterol Level 168 mg/dL (< 200) LDL Cholesterol 73 mg/dL (< 100) HDL Cholesterol 63 mg/dL (40-59) Vitamin B12 Level 653 pg/mL (211-911) Test 04/24/24 12:56 04/24/24 00:12 04/23/24 23:26 Urine Color Light-yellow (Yellow) Urine Clarity Clear (Clear) Urine pH 5.5 (5.0-9.0) Urine Specific [place] 1.013 (1.001-1.035) Urine Protein Negative (Negative) Urine Ketones Negative (Negative) Urine Blood Negative /uL (Negative) Urine Nitrite Negative (Negative) Urine Bilirubin Negative (Negative) Urine Urobilinogen Normal mg/dL (Negative) Urine Leukocyte Esterase 1+ /uL (Negative) Urine RBC 3 /hpf (0 - 4) Urine WBC 12 /hpf (0 - 5) Urine Squamous Epithelial Cells Few /hpf (<5) Urine Bacteria Few /hpf (None Seen) Urine Mucus Few (None Seen) Urine Yeast (Budding) Occasional /hpf (None Urine Glucose Normal mg/dL (Normal) Troponin I High Sensitivity 21 ng/L (</=34) Prothrombin Time 10.9 sec (9.3-11.8) Prothrombin Time INR 1.03 (0.9-1.15) Activated Partial Thromboplast Time 30.2 SEC (24.5-34.5) B-Type Natriuretic Peptide 133.07 pg/mL (0-100) Other Laboratory Tests 04/30/24 06:10 04/27/24 05:47 Brief Hx & Hospital Course: HPI: Patient is a 88-year-old female with a past medical history of degenerative disc disease with sciatica, trigeminal neuralgia, lupus, PAD, hypertension came to the ED for a chief complaint of worsening lower back pain for 2 days prior to admission. Patient reports that she lives in [place] [facility] for about 6 years and was apparently doing well when she fell down, reportedly lost balance but did not loose consciousness and since then had started having back pain which was initially tolerable and since 2 days before admission had severe lower back pain radiating intermittently to her lower limbs and had difficulty walking. Patient denies sensory loss, numbness or tingling. patient had chronic urinary incontinence but denies rectal incontinence. denies chest pain, shortness of breath, abdominal pain, nausea or vomiting. Lumbar CT without contrast showed No acute fracture or subluxation. Moderate to severe compression deformity seen throughout the lumbar spine of unknown chronicity but most likely nonacute. Severe multilevel degenerative disc disease with calcified disc bulges and at least mild spinal canal stenosis. There is moderate to severe bilateral osseous neural foraminal narrowing. Past medical history: as per HPI Past surgical history: Ruptured colon s/p colostomy about 15 years ago, S/P angioplasty left anterior tibial and peroneal artery , appendicectomy, hysterectomy Social history: Lives in [facility] and denies smoking, alcohol, drug use Home medications: carbamazepine, lisinopril, gabapentin, baclofen Hospital course Patient came to the hospital complaining of acute low back pain due to mechanical fall with CT findings above in the HPI. In the ED patient was given Solu-Medrol 125 mg IV and was started on pain control medications morphine for severe pain, [place] for moderate pain, acetaminophen for mild pain. Patient has a history of peripheral artery disease status post angioplasty was continued on aspirin and history of trigeminal neuralgia was continued on gabapentin and carbamazepine. Patient was assessed by Physical therapy and initially she was moderate to max assist and was recommended discharging to prison facility. Patient had elevated blood pressure while being on home blood pressure control medication on lisinopril 10 mg b.i.d.. Was started on carvedilol 6.25 mg b.i.d. and nifedipine 60 mg once daily with the adequate blood pressure control. Patient developed acute kidney injury with FENa less than 1% likely due to dehydration because of low oral fluid intake, for which the patient was given IV fluids in the TIANA resolved. On the day of discharge patient was again assessed with physical therapy and patient was able to walk 20 ft distance with minimum to moderate assistance. Throughout the stay in the hospital patient was alert and oriented x4. Patient was sent to prison facility and medication paperwork was filled up. According to social economist patient with a followed up by Dr. Stokes in the nursing facility. Malave's catheter was taken out and patient was discharged in stable condition. Review of systems Patient seen and examined at the bedside. Patient is alert and oriented to time, place and person. Patient does not report lower back pain while in the bed. No pain of trigeminal neuralgia. patient has a colostomy bag in the left lumbar quadrant of the abdomen with brownish liquid in the bag. Physical therapy evaluated the patient , she was able to walk 20 ft with minimum to moderate assistance. Patient's blood pressure has been SBP<140mmhg over the last 24 hrs. TIANA has resolved. Physical Examination Gen - no pallor, no icterus, no cyanosis, no clubbing, no LAD, no edema . Skin - Patients skin is warm and dry.. HEENT - normocephalic, atraumatic, moist mucous membranes. Neck - full ROM, no LAD, no JVD. Pulmonary - B/L vesicular breath sounds. no crackles , no wheezing, no stridor. cardiovascular - normal S1,S2 heard. RUSB systolic murmur heard. peripheral pulses normal radial 2+, pedal 2+. capillary refill normal <2 secs. GI - soft abdomen without tenderness to palpation . no hepatospleenomegaly. bowel sounds normoactive. Colostomy bag in the left lower quadrant. Neurological - Patient is A/O X 3 . Bilateral upper extremity strength 3/5, bilateral lower extremity strength 3/5, no facial droop, normal speech, no tremor, no sensory deficiets. Discharge plan Patient discharged to prison facility for physical therapy and rehab. Medication: Carvedilol 6.25 mg b.i.d. and nifedipine 60 mg once daily added. Fluconazole 200 mg p.o. daily for 5 days, continued on home medication. As per social economist, will be following up with the patient in the nursing facility. Follow up with the PCP in 1-2 weeks Follow up in discharge clinic Consults/Reason for consult no consults Operations or Procedures CT lumbar spine without contrast showed No acute fracture or subluxation. Moderate to severe compression deformity seen throughout the lumbar spine of unknown chronicity but most likely nonacute. Severe multilevel degenerative disc disease with calcified disc bulges and at least mild spinal canal stenosis. There is moderate to severe bilateral osseous neural foraminal narrowing. CT abdomen pelvis without contrast FINDINGS: Lung bases: Atelectasis in the lung bases. Respiratory motion artifact limits evaluation. Likely moderate emphysematous changes. Nodular opacity in the left lower lobe measuring up to 0.8 cm. Liver: Small fluid density lesions in the right hepatic lobe measuring up to 1 cm, likely cysts, although not optimally evaluated on noncontrast enhanced exam. Biliary: Postsurgical changes of prior cholecystectomy. Spleen: Unremarkable. Pancreas: Grossly unremarkable in its noncontrast enhanced appearance. Adrenal glands: Unremarkable. No mass. Kidneys: Small nonobstructing calculi in the lower pole of the right kidney. No hydronephrosis or obstructing calculi visualized. Aorta/Vascular: Dense arterial calcification. No abdominal aortic aneurysm. Retroperitoneum: No mass or lymphadenopathy. Bowel/mesentery: Nonspecific mildly distended fluid-filled small bowel loops. No transition point visualized to suggest small bowel obstruction. Motion artifact limits evaluation. There is a left lower quadrant colostomy and Islas's pouch. Pelvic organs: Uterus is surgically absent. Bladder: Malave catheter extends into the bladder Abdominal wall: Postsurgical changes of prior ventral hernia repair with mesh. Bones: No acute fracture or suspicious intraosseous lesion. Chronic appearing compression deformities are seen at T12, L2, L3, and L4. Condition at Discharge: Good Final Diagnosis/Problems List # Acute Lower Back Pain likely d/t Mechanical fall # H/o degenerative disc disease with sciatica # Trigeminal neuralgia # H/o PAD S/P angioplasty # Uncontrolled Hypertension # UTI likely Acute cystitis # TIANA likely prerenal d/t dehydration Discharge Disposition: [facility] Facility Discharge Instruct/Medications Diet: Regular Activity: No Restrictions, As Tolerated Follow Up/Referral: Follow up with the PCP in 1-2 weeks. Follow up in the discharge clinic in 1 week Medications: as per EMR Discharge Statement: "Patient was advised to return to the ER or call 911 if any headaches, dizziness, shortness of breath, chest pain, abdominal pain, bleeding, fevers, or worsening of medical condition. Patient was counseled about treatment plan, medications, possible side effects, patientverbalized understanding. All questions were answered to the best of my ability. This discharge took greater then 30 minutes in planning, reviewing documentation, counseling the patient, and discussing with other team members." ASSESSMENT ASSESSMENT Assessment # Acute Lower Back Pain likely d/t Mechanical fall # H/o degenerative disc disease with sciatica # Trigeminal neuralgia # H/o PAD S/P angioplasty # Uncontrolled Hypertension # UTI likely Acute cystitis # TIANA likely prerenal d/t dehydration Date of Service: Apr 30, 2024 Billing Provider: SHAVONNE NUÑEZ MD Common Visit Codes: [id number]/[id number] DISCH DAY >30min JONN HOUGH RESIDENT Apr 30, 2024 21:03 SHAVONNE NUÑEZ MD May 05, 2024 23:55
== END 2024-04-30 15:55 | DRG 551 ==
LOC: ER 16:31 → EDBD 16:31 → OVERFLOW 23:53 → WEST WING 04-24 18:21
PROVIDERS: ADMIT Student in an Organized Health Care Education/Training Program; ATTEND Student in an Organized Health Care Education/Training Program
PROC: 0DC Gastrointestinal System, Extirpation (ICD-10-PCS; principal; 2024-04-23)
DX: M54.16 Radiculopathy, lumbar region (principal); N17.0 Acute kidney failure with tubular necrosis; N30.00 Acute cystitis without hematuria; K59.00 Constipation, unspecified; E86.0 Dehydration; I10 Essential (primary) hypertension; E78.5 Hyperlipidemia, unspecified; G89.4 Chronic pain syndrome; Z90.49 Acquired absence of other specified parts of digestive tract; Z90.710 Acquired absence of both cervix and uterus; Z86.73 Personal history of transient ischemic attack (TIA), and cerebral infarction without residual deficits; S33.5XXA Sprain of ligaments of lumbar spine, initial encounter; X58.XXXA Exposure to other specified factors, initial encounter; Y93.89 Activity, other specified; Y92.89 Other specified places as the place of occurrence of the external cause; Y99.8 Other external cause status
CPT/HCPCS: 36415; 71045; 72131; 74176; 80048; 80053; 80061; 81001; 82306; 82570; 82607; 83880; 84156; 84300; 84484; 85025; 85610; 85730; 87086; 87088; 97110; 97116; 97162; 97530; 99291; G0378; J1885; J2405

== ENCOUNTER 2024-07-01 11:36 | Inpatient (IN) | payer MEDICARE ==
[~2024-07-01] VITALS: Ht 167.6 cm; Wt 61.3 kg
[~2024-07-01 11:36] MED LIST changes: -CARB200T PO; -HYDR-4798 PO; +ROSU20TA14 PO; -ROSU20TA56 PO
--- NOTE | 2024-07-01 12:11 | ED.PDOC ---
History of Present Illness HPI Comments 88 year old female brought in by EMS presents to the ED with a chief complaint of neck pain onset 3 days. Per EMS, patient has been experiencing neck pain for the past 3 days, did not experience fall or injury. Patient states she noticed pain worsens with movement. PMHx anxiety, arthritis, depression, HLD, TIA. Denies fall, injury, dizziness, headache, blurry vision, chest pain, shortness of breath. No other symptoms or modifying factors present at this time. Chief Complaint: Neck Pain Time Seen by MD: 11:52 Primary Care Provider: none Reviewed Notes: Medications, Allergies Allergies: Coded Allergies: NO KNOWN ALLERGIES (Unverified , 11/12/19) Home Meds Reported Medications Tramadol Hcl (Tramadol Hcl) 50 Mg Tab, 50 MG PO BID PRN for TRIGEMINAL NEURALGIA for 30 Days, #60 04/25/24 Baclofen (Baclofen) 10 Mg Tab, 1 TAB PO DAILY for 15 Days, #15 04/25/24 Ibuprofen (Ibuprofen) 600 Mg Tab, 1 TAB PO BID PRN for 30 Days, #60 0 Refills 04/25/24 Hydrocodone-Acetaminophen (Hydrocodone Bitartrate/AC 5-325 mg) 1 Tab Tab, 1 TAB PO Q6HR PRN for 30 Days, #120 04/25/24 Rosuvastatin Calcium (Crestor) 20 Mg Tab, 1 TAB PO DAILY, #30 TAB 5 Refills 04/24/24 Gabapentin (Gabapentin) 100 Mg Cap, 200 MG PO QPM for 30 Days, #90 04/24/24 Gabapentin (Gabapentin) 100 Mg Cap, 100 MG PO QAM for 30 Days, #90 04/24/24 Carbamazepine (TEGretol TABLET) 200 Mg Tb, 200 MG PO QPM for 30 Days, #90 04/24/24 Carbamazepine (TEGretol TABLET) 200 Mg Tb, 100 MG PO QAM for 30 Days, #90 04/24/24 Pantoprazole Sodium Sesquihydr (Protonix) 40 Mg Tab, 2.5 MG PO DAILY, #30 TAB 12/29/20 Cyanocobalamin (B12) 1,000 Mcg Tab, 1000 MCG PO, TAB 12/29/20 Multiple Vitamins W/ Minerals (Preservision Areds 2) 1 Chw Chw, 2 CHW PO, CHW 12/29/20 Biotin (Biotin) 5,000 Mcg Cap, 1000 MCG PO DAILY, CAP 12/29/20 Calcium Acetate (PHOSLO CAPSULE) 667 Mg Cp, 600 MG PO BID, CAP 12/29/20 Hydroxychloroquine Sulfate (PLAQUENIL) 200 Mg Tab, 1 TAB PO BID for 30 Days, #60 12/29/20 Trazodone Hcl (Trazodone Hcl) 50 Mg Tab, 50 MG PO DAILY, MG 05/13/20 Citalopram Hydrobromide (Citalopram Hydrobromide) 10 Mg Tab, 10 MG PO DAILY, TAB 05/13/20 Metoprolol Succinate (Metoprolol Succinate Er) 25 Mg Tab, 1 TAB PO DAILY, #30 TAB 5 Refills 05/13/20 Amlodipine Besylate (Amlodipine Besylate) 10 Mg Tab, 1 TAB PO DAILY, #30 TAB 5 Refills 05/13/20 Warfarin Sodium (Warfarin Sodium) 5 Mg Tab, 2 TAB PO BATRES,,TH,SA, #90 TAB 1 Refill 05/13/20 Warfarin Sodium (Warfarin Sodium) 5 Mg Tab, 1 TAB PO MW, #90 TAB 1 Refill 11/08/19 Lisinopril (Lisinopril) 10 Mg Tab, 1 TAB PO BID for 30 Days, #60 02/20/18 Information Source: Patient, Emergency Med Personnel Mode of Arrival: EMS Severity: Moderate Timing: Days Duration: Since onset Prehospital treatment: None Past Medical History PAST MEDICAL HISTORY: Anxiety, Arthritis, Depression, High Lipids, HTN, TIA Surgical History: Appendectomy, Cholecystectomy, Hernia Repair, Hysterectomy, Tonsillectomy DIGITAL BUSINESS ANALYST History: No Pertinent DIGITAL BUSINESS ANALYST History Family History Family History: No family hx of Cancer, No family hx of Stroke Social History Smoker: Non-Smoker Alcohol: Denies ETOH Use Drugs: Denies Drug Use Lives In: [facility] Constitutional: denies: chills, diaphoresis, fatigue, fever, malaise, sweats, weakness, others EENTM: denies: blurred vision, double vision, ear bleeding, ear discharge, ear drainage, ear pain, ear ringing, eye pain, eye redness, hearing loss, mouth pain, mouth swelling, nasal discharge, nose bleeding, nose congestion, nose pain, photophobia, tearing, throat pain, throat swelling, voice changes, others Respiratory: denies: cough, hemoptysis, orthopnea, SOB at rest, shortness of breath, SOB with excertion, stridor, wheezing, others Cardiovascular: denies: chest pain, dizzy spells, diaphoresis, Dyspnea on exertion, edema, irregular heart beat, left arm pain, lightheadedness, palpitations, PND, syncope, others Gastrointestinal: denies: abdomen distended, abdominal pain, blood streaked bowels, constipated, diarrhea, dysphagia, difficulty swallowing, hematemesis, melena, nausea, poor appetite, poor fluid intake, rectal bleeding, rectal pain, vomiting, others Genitourinary: denies: abnormal vagina bleeding, burning, dyspareunia, dysuria, flank pain, frequency, hematuria, incontinence, pain, , vagina discharge, urgency, others Neurological: denies: dizziness, fainting, headache, left sided numbness, left sided weakness, numbness, paresthesia, pre-existing deficit, right sided numbness, right sided weakness, seizure, speech problems, tingling, tremors, weakness, others Musculoskeletal: reports: neck pain; denies: back pain, gout, joint pain, joint swelling, muscle pain, muscle stiffness, others Integumetry: denies: bruises, change in color, change in hair/nails, dryness, laceration, lesions, lumps, rash, wounds, others Allergic/Immunocompromised: denies: Difficulty Healing, Frequent Infections, Hives, Itching, others Hematologic/Lymphatic: denies: anemia, blood clots, easy bleeding, easy bruising, swollen glands, others Endocrine: denies: excessive hunger, excessive sweating, excessive thirst, excessive urination, flushing, intolerance to cold, intolerance to heat, unex plained weight gain, unexplained weight loss, others Psychiatric: denies: anxiety, bipolar disorder, depression, hopeless, panic disorder, schizophrenia, sleepless, suicidal, others All Other Systems: Reviewed and Negative Physical Exam General Appearance: Moderate Distress HEENT: Normal ENT Inspection Neck: Full Range of Motion, Non-Tender, Normal, Normal Inspection Respiratory: Chest Non-Tender, Lungs Clear, No Accessory Muscle Use, No Respiratory Distress, Normal Breath Sounds Cardiovascular: No Edema, No JVD, No Murmur, No Gallop, Normal Peripheral Pulses, Regular Rate/Rhythm Breast Exam: Deferred Gastrointestinal: No Organomegaly, Non Tender, No Pulsatile Mass, Normal Bowel Sounds, Soft Genitalia: Deferred Pelvic: Deferred Rectal: Deferred Extremities: No calf tenderness Musculoskeletal : Apperance: Normal Neurologic: Alert, No Motor Deficits, No Sensory Deficits Cerebellar Function: NOT DONE Reflexes: NOT DONE Skin: Normal Color Peripheral Pulses: 3+ Radial (R), 3+ Radial (L) Lymphatic: No Adenopathy Was a procedure done? Was a procedure done?: No Differential Dx Considerations may include: Degenerative disc disease Cervical strain X-Ray, Labs, Meds, VS Lab Test 07/01/24 12:48 Range/Units White Blood Count Pending Red Blood Count Pending Hemoglobin Pending Hematocrit Pending Mean Corpuscular Volume Pending Mean Corpuscular Hemoglobin Pending Mean Corpuscular Hemoglobin Concent Pending Red Cell Distribution Width Pending Platelet Count Pending Mean Platelet Volume Pending Neutrophils (%) (Auto) Pending Lymphocytes (%) (Auto) Pending Monocytes (%) (Auto) Pending Basophils (%) (Auto) Pending Neutrophils # (Auto) Pending Lymphocytes # (Auto) Pending Monocytes # (Auto) Pending Sodium Level Pending Potassium Level Pending Chloride Level Pending Carbon Dioxide Level Pending Anion Gap Pending Blood Urea Nitrogen Pending Creatinine Pending Glomerular Filtration Rate Calc Pending BUN/Creatinine Ratio Pending Serum Glucose Pending Calcium Level Pending Patient alert. Complaining of neck pain. Vitals stable. Answering questions. Comes from a senior living. Continues to have neck pain. Possibly will need MRI. Reviewed her previous visit. Explained to the patient. Continue cardiac monitoring. [place] [id number] Ph: [phone] DIAGNOSTIC IMAGING Diagnostic Imaging Report : [id number] Signed PATIENT: RICKEY EASON BACCT: [id number] UNIT: [id number] : 1935 LOC: ER ROOM / BED: / AGE / SEX: 88 / F ADM STATUS: REG ER SERVICE 1152 ORDERING PHYSICIAN: MIRTA HENAO MD PROCEDURE(s): CERV2 - CERVICAL SPINE 3V REASON: pain ORDER NUMBER(s): [id number], ACCESSION NUMBER(s): [id number] INDICATION: pain COMPARISON: None TECHNIQUE: 3 views of the cervical spine were obtained. FINDINGS: Reversal of the cervical spine curvature. Mild anterolisthesis of C3 on C4 and C4 on C5. The predental space is normal. Severe multilevel degenerative disc disease of the cervical spine. No acute fracture, vertebral compression deformity or aggressive osseous lesions. The imaged lung apices are unremarkable. IMPRESSION: No acute fracture. Severe multilevel degenerative disc disease of the cervical spine. ATED BY: ISAI BRANCH MD DICTATED DATE/TIME: 07/01/24 1236 SIGNED BY: SIAI BRANCH MD SIGNED DATE/TIME: 07/01/24 1236 CC: Time of 1ST Reevaluation: 12:42 Reevaluation 1ST: Unchanged Patient Education/Counseling: Diagnosis, Treatment, Prognosis Family Education/Counseling: No Family Present Additional Information The following tests were ordered, and results were reviewed by me: XY CERVICAL SPINE 3V, UA, CBC, BMP Additional Information was gathered from interviewing the following independent historians: EMS I reviewed and agreed with the following test results read by other providers: NICOLAS CERVICAL SPINE 3V, I discussed treatment and results with medical personnel and patient Departure 1 Departure Time of Disposition: 12:44 Impression: Primary Impression: Cervical radiculopathy due to degenerative joint disease of spine Additional Impressions: HTN (hypertension) Qualified Codes: I10 - Essential (primary) hypertension Sepsis due to urinary tract infection Sepsis, unspecified organism Qualified Codes: A41.9 - Sepsis, unspecified organism Disposition: ADMITTED INPATIENT Admit to: Med Surg Condition: Guarded Critical Care Note Critical Care Time?: No Stability Stability form required: No Heart Score Heart Score: Heart Score Response (Comments) Value History N/A 0 EKG N/A 0 Age N/A 0 Risk Factors N/A 0 Troponin N/A 0 Total 0 I personally scribed for MIRTA HENAO MD ([email or web address]) on 07/01/24 at 12:11. Electronically submitted by Natalia Zambrano ([email or web address]). I personally scribed for MIRTA HENAO MD ([email or web address]) on 07/01/24 at 12:19. Electronically submitted by Natalia Zambrano ([email or web address]). I personally scribed for MIRTA HENAO MD ([email or web address]) on 07/01/24 at 13:08. Electronically submitted by Natalia Zambrano ([email or web address]). MIRTA HENAO MD Jul 01, 2024 12:11
--- NOTE | 2024-07-01 12:37 | DVH ---
INDICATION: pain COMPARISON: None TECHNIQUE: 3 views of the cervical spine were obtained. FINDINGS: Reversal of the cervical spine curvature. Mild anterolisthesis of C3 on C4 and C4 on C5. The predental space is normal. Severe multilevel degenerative disc disease of the cervical spine. No acute fracture, vertebral compression deformity or aggressive osseous lesions. The imaged lung apices are unremarkable. IMPRESSION: No acute fracture. Severe multilevel degenerative disc disease of the cervical spine.
[2024-07-01 13:21] LABS: Basophils # (auto) 0 10 ^3/uL (0-0.2); Basophils % (auto) 0.3 % (0.0-2.0); Eosinophils # (auto) 0.1 10 ^3/uL (0-0.8); Eosinophils % (auto) 0.7 % (0.0-7.0); Hematocrit 36.1 % (36.0-46.0); Hemoglobin 12.2 g/dL (12.2-16.2); Lymphocytes # (auto) 1.2 10 ^3/uL (0.4-5.4); Lymphocytes % (auto) 16.2 % (10.0-50.0); Mean Corpuscular Hemoglobin 30.8 pg (28.0-32.0); Mean Corpuscular Hgb Conc. 33.6 g/dL (32.0-36.0); Mean Corpuscular Volume 91.6 fL (80.0-100.0); Monocytes # (auto) 0.8 10 ^3/uL (0-1.3); Monocytes % (auto) 10.5 % (0.0-12.0); Neutrophils # (auto) 5.4 10 ^3/uL (1.6-8.6); Neutrophils % (auto) 72.3 % (37.0-80.0); Platelet Count (auto) 216 10^3/uL (140-450); Red Blood Cells 3.94 10^6/uL (4.0-5.20); Red Cell Distribution Width 16.6 % (11.8-14.3); White Blood Cell 7.5 10^3/uL (4.4-10.8)
[2024-07-01 13:26] LABS: Chloride 99 mmol/L (98-107); Potassium 4.1 mmol/L (3.5-5.1); Sodium 137 mmol/L (136-145)
[2024-07-01 13:27] LABS: Anion Gap 8 (5-15); Calcium 10.2 mg/dL (8.7-10.4); Carbon Dioxide 30 mmol/L (20-31)
[2024-07-01 13:32] LABS: BUN/Creatinine Ratio 27.8 (10.0-20.0); Blood Urea Nitrogen 32 mg/dL (9-23); Glucose 112 mg/dL (74-106)
[2024-07-01] MEDS ORDERED: NITROGLYCERIN 0.4 MG SL TAB SL PRN (15:45)
[2024-07-01] MEDS ORDERED: ACETAMINOPHEN 325 MG TAB PO PRN (15:45)
[2024-07-01] MEDS ORDERED: MORPHINE SULFATE INJ 2 MG/ml SYRG IV PRN (15:45)
[2024-07-01] MEDS ORDERED: ONDANSETRON HCL 4 MG/2 ML VIAL IV PRN (15:45)
[2024-07-01] MEDS ORDERED: DOCUSATE SOD 100 MG CAP PO PRN (15:45)
--- NOTE | 2024-07-01 15:45 | DVHHP2 ---
History of Present Illness Reason for Visit: Cervical radiculopathy due to degenerative joint disease of spine History of Present Illness The patient is a 88-year-old female with multiple past medical history including depression, TIA, anxiety, and hypertension who presented to [facility] ED with complaint of neck pain for the past 3 days. Patient reports she has been experiencing neck pain rating 6/10 numeric scale, getting worse today that prompted this visit. Patient was seen and evaluated in the ED, laboratory data shows WBC 7.5, platelets 216, sodium 137, potassium 4.1, BUN 32, creatinine 1.15, GFR 46, glucose 112, calcium 10.2, blood pressure 161/70, heart rate 83, temperature 98.2 F, O2 saturation 98% on room air. Cervical spine x-ray revealing severe multilevel degenerative disc disease of the cervical spine, no acute fracture. Please see medication orders section in the computer. On my assessment, patient denied chest pain, no headache, no dizziness, no diaphoresis, no loss of consciousness, no shortness of breaths, no nausea, no vomiting, no fever, no chills. Patient was admitted for further evaluation and medical management. . Past Medical History Anxiety, Arthritis, Depression, High Lipids, HTN, TIA, HLD Past Surgical History Appendectomy, Cholecystectomy, Hernia Repair, Hysterectomy, Tonsillectomy Family History Reviewed, noncontributory to the management of this case. Past Social History The patient lives at group home, denies smoking, no alcohol or illicit drugs abuse Review of Systems Constitutional: Yes: Weakness; No: Fever, Chills, Sweats, Malaise, Other Eyes: No: Pain, Vision change, Conjunctivae inflammation, Eyelid inflammation, Other, Redness ENT: No: Ear pain, Ear discharge, Nose pain, Nose discharge, Nose congestion, Mouth pain, Mouth swelling, Throat pain, Throat swelling, Other Respiratory: No: Cough, Dry, Shortness of breath, SOB with excertion, Wheezing, Hemoptysis, Pleuritic Pain, Sputum, Wheezing, Other Cardiovascular: No: Chest Pain, Palpitations, Orthopnea, Paroxysmal Noc. Dyspnea, Edema, Lt Headedness, Other Gastrointestinal: No: Nausea, Vomiting, Abdominal Pain, Diarrhea, Constipation, Melena, Hematochezia, Other Genitourinary: No Dysuria, No Frequency, No Incontinence, No Hematuria, No Retention, No Other Musculoskeletal: neck pain; No: other, shoulder pain, arm pain, back pain, hand pain, leg pain, foot pain Skin: No: Rash, Lesions, Jaundice, Bruising, Other Neurological: No: Weakness, Numbness, Incoordination, Change in speech, Confusion, Seizures, Other Allergies: Coded Allergies: NO KNOWN ALLERGIES (Unverified , 11/12/19) Exam Vital Signs Vital Signs Date Time Temp Pulse Resp B/P (MAP) Pulse Ox O2 Delivery O2 Flow Rate FiO2 07/01/24 11:40 98.2 83 16 161/70 (100) 98 General Appearance: Alert, Oriented X3, Cooperative, No acute distress HEENT: Atraumatic, PERRLA, EOMI, Mucous membr. moist/pink Respiratory: Clear to auscultation, Normal air movement Cardiovascular: Regular rate, Normal S1, Normal S2, No murmurs Abdominal: Normal bowel sounds, Soft, No tenderness, No hepatospenomegaly, No masses Extremities: No clubbing, No cyanosis, No edema, Normal pulses, Other (Neck tenderness) Skin: No rashes, No breakdown, No significant lesion Neuro: Normal speech, Normal tone, Sensation intact, Cranial nerves 3-12 NL, Reflexes 2+, Other (Generalized weakness) Psych/Mental Status: Mental status NL, Mood NL Labs/Xrays Labs Test 07/01/24 12:48 Range/Units White Blood Count 7.5 4.4-10.8 10^3/uL Red Blood Count 3.94 L 4.0-5.20 10^6/uL Hemoglobin 12.2 12.2-16.2 g/dL Hematocrit 36.1 36.0-46.0 % Mean Corpuscular Volume 91.6 80.0-100.0 fL Mean Corpuscular Hemoglobin 30.8 28.0-32.0 pg Mean Corpuscular Hemoglobin Concent 33.6 32.0-36.0 g/dL Red Cell Distribution Width 16.6 H 11.8-14.3 % Platelet Count 216 140-450 10^3/uL Mean Platelet Volume 8.8 6.9-10.8 fL Neutrophils (%) (Auto) 72.3 37.0-80.0 % Lymphocytes (%) (Auto) 16.2 10.0-50.0 % Monocytes (%) (Auto) 10.5 0.0-12.0 % Eosinophils (%) (Auto) 0.7 0.0-7.0 % Basophils (%) (Auto) 0.3 0.0-2.0 % Neutrophils # (Auto) 5.4 1.6-8.6 10 ^3/uL Lymphocytes # (Auto) 1.2 0.4-5.4 10 ^3/uL Monocytes # (Auto) 0.8 0-1.3 10 ^3/uL Eosinophils # (Auto) 0.1 0-0.8 10 ^3/uL Basophils # (Auto) 0 0-0.2 10 ^3/uL Nucleated Red Blood Cells 0.0 % Sodium Level 137 136-145 mmol/L Potassium Level 4.1 3.5-5.1 mmol/L Chloride Level 99 98-107 mmol/L Carbon Dioxide Level 30 20-31 mmol/L Anion Gap 8 5-15 Blood Urea Nitrogen 32 H 9-23 mg/dL Creatinine 1.15 H 0.550-1.02 mg/dL Glomerular Filtration Rate Calc 46 >90 mL/min BUN/Creatinine Ratio 27.8 H 10.0-20.0 Serum Glucose 112 H 74-106 mg/dL Calcium Level 10.2 8.7-10.4 mg/dL PATIENT: RICKEY EASON BACCT: [id number] UNIT: [id number] : 1935 LOC: ER ROOM / BED: / AGE / SEX: 88 / F ADM STATUS: REG ER SERVICE 1152 ORDERING PHYSICIAN: MIRTA HENAO MD PROCEDURE(s): CERV2 - CERVICAL SPINE 3V REASON: pain ORDER NUMBER(s): [id number], ACCESSION NUMBER(s): [id number] INDICATION: pain COMPARISON: None TECHNIQUE: 3 views of the cervical spine were obtained. FINDINGS: Reversal of the cervical spine curvature. Mild anterolisthesis of C3 on C4 and C4 on C5. The predental space is normal. Severe multilevel degenerative disc disease of the cervical spine. No acute fracture, vertebral compression deformity or aggressive osseous lesions. The imaged lung apices are unremarkable. IMPRESSION: No acute fracture. Severe multilevel degenerative disc disease of the cervical spine. Assessment/Plan Assessment/Plan Cervical radiculopathy due to degenerative joint disease of spine Urinary tract infection Neck pain Degenerative disc disease Essential (primary) hypertension Generalized weakness Plan 1. Admit to telemetry unit 2. Breathing treatment 3. Pain control management 4. IV antibiotic management 5. Management of fluids and electrolytes 6. Consultation for hospitalist 7. Diagnostic test cervical spine x-ray 8. DVT prophylaxis-on SCDs 9. Repeat labs CBC, CMP in a.m. 10. Home medication reviewed and reconciled 11. Continue with current medical management 12. Treatment plan discussed with patient and RN. Patient verbalized understanding. Plan discussed with: Patient, Other (RN) Problem List: (1) Cervical radiculopathy due to degenerative joint disease of spine (2) Neck pain (3) Essential (primary) hypertension (4) Degenerative disc disease (5) Urinary tract infection (6) Generalized weakness Date of Service: Jul 01, 2024 Billing Provider: BINA MORA DNP Common Visit Codes: [id number] INP/OBS CARE (HIGH) BINA MORA DNP Jul 01, 2024 15:45
[2024-07-01] MEDS: HYDROcodone-ACET 5/325MG TAB PO PRN (16:20)
[2024-07-01] MEDS: SODIUM CHLORIDE 0.9% 1,000 ML IV ONE (19:22)
[2024-07-01] MEDS: SODIUM CHLORIDE 0.9% 1,000 ML IV SCH (19:23)
[2024-07-01 19:28] LABS: Urine Bacteria FEW /hpf (None Seen); Urine Blood Negative /uL (Negative); Urine Clarity Clear (Clear); Urine Color Light-Yellow (Yellow); Urine Protein, UAD TRACE (Negative); Urine Specific Gravity 1.019 (1.001-1.035); Urine Squamous Epithelial Cell FEW /hpf (<5); Urine Urobilinogen Normal (Negative); Urine WBC 39 /HPF (0-5); Urine pH 5.5 (5.0-9.0)
[2024-07-01 22:20] VITALS: BP 174/67; PULSE 88; RESP 18; TEMP 98.2; O2SAT 97
[2024-07-01] MEDS: ATORVASTATIN 20 MG TAB PO SCH (22:51)
[2024-07-01 23:16] VITALS: PULSE 84; RESP 16; O2SAT 95
[2024-07-01] MEDS: METOPROLOL TARTRATE 25 MG TAB PO SCH (23:36)
[2024-07-02] VITALS (8 sets, daily range): BP systolic 122–179; BP diastolic 47–73; PULSE 72–89; RESP 17–19; TEMP 98–98.7; O2SAT 95–99
[2024-07-02] MEDS: cefTRIAXone 1GM/50ML D5W 50 ML IV ONE (00:51)
[2024-07-02] MEDS: GABAPENTIN 100 MG CAP PO SCH (00:52)
[2024-07-02] MEDS: hydrALAZINE HCL 20 MG/ML VL IV PRN (05:32)
[2024-07-02 08:45] LABS: Basophils # (auto) 0 10 ^3/uL (0-0.2); Basophils % (auto) 0.3 % (0.0-2.0); Eosinophils # (auto) 0.1 10 ^3/uL (0-0.8); Eosinophils % (auto) 0.7 % (0.0-7.0); Hematocrit 35.2 % (36.0-46.0); Hemoglobin 11.8 g/dL (12.2-16.2); Lymphocytes # (auto) 0.9 10 ^3/uL (0.4-5.4); Lymphocytes % (auto) 8.7 % (10.0-50.0); Mean Corpuscular Hemoglobin 30.3 pg (28.0-32.0); Mean Corpuscular Hgb Conc. 33.5 g/dL (32.0-36.0); Mean Corpuscular Volume 90.5 fL (80.0-100.0); Monocytes # (auto) 0.6 10 ^3/uL (0-1.3); Monocytes % (auto) 6.4 % (0.0-12.0); Neutrophils # (auto) 8.3 10 ^3/uL (1.6-8.6); Neutrophils % (auto) 83.9 % (37.0-80.0); Platelet Count (auto) 201 10^3/uL (140-450); Red Blood Cells 3.89 10^6/uL (4.0-5.20); Red Cell Distribution Width 16.2 % (11.8-14.3); White Blood Cell 9.9 10^3/uL (4.4-10.8)
[2024-07-02] MEDS: amLODIPine BESYLATE 5 MG TAB PO SCH (08:46)
[2024-07-02] MEDS: FAMOTIDINE (10MG/ML) 2ML VL IV SCH (08:47)
[2024-07-02] MEDS: cefTRIAXone 1GM/50ML D5W 50 ML IV SCH (08:47)
[2024-07-02 09:15] LABS: Alanine Aminotransferase 13 U/L (7-40); Alkaline Phosphatase 114 U/L (46-116); Anion Gap 12 (5-15); BUN/Creatinine Ratio 26.9 (10.0-20.0); Calcium 9.9 mg/dL (8.7-10.4); Carbon Dioxide 23 mmol/L (20-31); Chloride 101 mmol/L (98-107); Potassium 4.1 mmol/L (3.5-5.1)
[2024-07-02 09:16] LABS: Albumin 3.9 g/dL (3.2-4.8); Aspartate Aminotransferase 25 U/L (13-40)
[2024-07-02 09:17] LABS: Bilirubin, Total 0.7 mg/dL (0.2-1.0); Total Protein 7.4 g/dL (5.7-8.2)
[2024-07-02 09:32] LABS: Blood Urea Nitrogen 28 mg/dL (9-23); Glucose 107 mg/dL (74-106); Sodium 136 mmol/L (136-145)
[2024-07-02] MEDS ORDERED: ROSU20TA14 PO (12:11)
[2024-07-02] MEDS ORDERED: CARB100S PO (12:11)
[2024-07-02] MEDS ORDERED: AMLO1TAB22 PO (12:11)
--- NOTE | 2024-07-02 13:22 | DVHPN2 ---
Reviewed: Care Plan Changes from previous H/P or p: No Changes Eyes: No Pain, No Vision change, No Conjunctivae inflammation, No Eyelid inflammation, No Other, No Redness ENT: No Ear pain, No Ear discharge, No Nose pain, No Nose discharge, No Nose congestion, No Mouth pain, No Mouth swelling, No Throat pain, No Throat swelling, No Other Cardiovascular: No Chest Pain, No Palpitations, No Orthopnea, No Paroxysmal Noc. Dyspnea, No Edema, No Lt Headedness, No Other Respiratory: No Cough, No Dry, No Shortness of breath, No SOB with excertion, No Wheezing, No Hemoptysis, No Pleuritic Pain, No Sputum, No Other Gastrointestinal: No Nausea, No Vomiting, No Abdominal Pain, No Diarrhea, No Constipation, No Melena, No Hematochezia, No Other Genitourinary: No Dysuria, No Frequency, No Incontinence, No Hematuria, No Retention, No Other Musculoskeletal: No other; neck pain; No shoulder pain, No arm pain, No back pain, No hand pain, No leg pain, No foot pain Skin: No Rash, No Lesions, No Jaundice, No Bruising, No Other Objective Vitals Vital Signs Date Time Temp Pulse Resp B/P (MAP) Pulse Ox O2 Delivery O2 Flow Rate FiO2 07/02/24 09:00 98.3 72 17 122/47 (72) 99 98.3 07/01/24 23:16 Room Air* 0 21 Intake/Output Intake and Output 07/02/24 07:00 Intake Total 100 ml Balance 100 ml Intake Oral 100 ml # Voids 1 Medications Current Medications Medications Dose Ordered Sig/Rojelio Route Start Time Stop Time Status Last Admin Dose Admin Amlodipine Besylate 5 mg DAILY PO 07/02/24 10:00 07/02/24 08:46 5 MG Metoprolol Tartrate 25 mg BID PO 07/01/24 22:00 07/02/24 08:45 25 MG Hydralazine HCl 10 mg Q6HP PRN IV 07/01/24 15:45 07/02/24 05:32 10 MG Famotidine 20 mg DAILY IV 07/02/24 10:00 Warfarin Sodium RX PROTOCOL PER PHARMACY PO 07/01/24 15:45 Hold Atorvastatin Calcium 10 mg HS PO 07/01/24 22:00 07/01/24 22:51 10 MG Gabapentin 100 mg TID PO 07/01/24 22:00 07/02/24 06:21 100 MG Sodium Chloride 1,000 ml @ 60 mls/hr [id number] IV 07/01/24 15:45 07/02/24 08:47 60 MLS/HR Acetaminophen/ Hydrocodone Bitart 1 tab Q4HP PRN PO 07/01/24 15:45 07/02/24 05:20 1 TAB Ondansetron HCl 4 mg Q4HP PRN IV 07/01/24 15:45 Docusate Sodium 100 mg BIDPRN PRN PO 07/01/24 15:45 Acetaminophen 500 mg Q6HP PRN PO 07/01/24 15:45 Nitroglycerin 0.4 mg Q5MINP PRN SL 07/01/24 15:45 Morphine Sulfate 2 mg Q30M PRN IV 07/01/24 15:45 Ceftriaxone Sodium 50 ml @ 100 mls/hr DAILY@09 IV 07/02/24 09:00 07/02/24 08:47 100 MLS/HR Laboratory Results Laboratory Tests 07/02/24 08:13 Chemistry Test 07/02/24 08:13 Albumin 3.9 g/dL (3.2-4.8) Calcium Level 9.9 mg/dL (8.7-10.4) Total Protein 7.4 g/dL (5.7-8.2) LFT Test 07/02/24 08:13 Alanine Aminotransferase (ALT) 13 U/L (7-40) Alkaline Phosphatase 114 U/L (46-116) Aspartate Amino Transferase (AST) 25 U/L (13-40) Total Bilirubin 0.7 mg/dL (0.2-1.0) Urinalysis Test 07/01/24 16:28 Urine Color Light-yellow (Yellow) Urine Clarity Clear (Clear) Urine pH 5.5 (5.0-9.0) Urine Specific Nixon 1.019 (1.001-1.035) Urine Protein Trace (Negative) H Urine Ketones Negative (Negative) Urine Blood Negative /uL (Negative) Urine Nitrite Negative (Negative) Urine Bilirubin Negative (Negative) Urine Urobilinogen Normal mg/dL (Negative) Urine Leukocyte Esterase 2+ /uL (Negative) Urine RBC 5 /hpf (0 - 4) Urine Microscopic WBC 39 /HPF (0-5) H Urine Squamous Epithelial Cells Few /hpf (<5) Urine Bacteria Few /hpf (None Seen) H Urine Glucose Normal mg/dL (Normal) Labs and/or images reviewed: Labs reviewed by me, Image(s) reviewed by me Assessment/Plan Assessment/Plan Cervical radiculopathy C-spine x-ray negative we will order CT C-spine, patient does not want any spine surgery consult Trigeminal neuralgia: Continue home medication Tegretol, Neurology consult per patient request Muscle spasms: Baclofen 10 mg po hs Status post angioplasty left lower extremity Hypotension Hypercholesterolemia TIANA 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
--- NOTE | 2024-07-02 14:54 | DVH ---
EXAM: CT CERVICAL WITHOUT CONTRAST INDICATION: swevere Cervical radiculopathy EXAM DATE: 07/02/2024 02:27 PM COMPARISON: Cervical spine radiograph 07/01/2024 TECHNIQUE: Multiple axial CT images of the cervical spine were obtained using bone algorithm. Axial a nd coronal reformatting was done. Bone and soft tissue windows were reviewed. Radiation Dose Information: CT Dose: CTDI volume is 11.99 mGy. Dose-length product is 276.05 mGy*cm FINDINGS: 7 [id number] cervical type vertebra. Straightening of the cervical lordosis. The vertebral body heights are maintained. Severe degenerative changes of the dens. Grade 1 anterolisthesis of C3 on C4 and C4 on C5. Multilevel moderate to severe degenerative changes of the cervical spine. C2-C3: Moderate right with mild left-sided neural foramina stenosis from uncovertebral hypertrophy an d facet osteoarthritis. No significant spinal canal stenosis. C3-C4: Severe bilateral neural foramina stenosis from uncovertebral hypertrophy and facet osteoarthri tis. No significant spinal canal stenosis. C4-C5: Mild posterior disc osteophyte complex without significant spinal canal stenosis. Severe bila teral neural foramina stenosis from uncovertebral hypertrophy and facet osteoarthritis. C5-C6: Mild posterior disc osteophyte complex without significant spinal canal stenosis. Moderate to severe bilateral neural foramina stenosis from uncovertebral hypertrophy and facet osteoarthritis. C6-C7: Posterior disc osteophyte complex without significant spinal canal stenosis. Moderate bilate ral neural foramina stenosis from uncovertebral hypertrophy and facet osteoarthritis. Ligamentum flav um calcification is noted. C7-T1: No significant spinal canal or neural foramina stenosis. Ligamentum flavum calcification is no brian. The paraspinal muscles are unremarkable. Heterogeneous appearance of the thyroid gland with multiple thyroid nodules measuring up to 1 cm. Asha pical emphysematous changes with scarring. IMPRESSION: Multilevel moderate to severe degenerative changes of the cervical spine as detailed above. Grade 1 a nterolisthesis of C3 on C4 and C4 on C5 of unknown chronicity which may be degenerative. Moderate right-sided neural foramina stenosis at C2-C3, severe bilateral neural foramina stenosis at C3-C4 and C4-C5 with moderate to severe bilateral neural foramina stenosis at C5-C6 and moderate bila teral neural foramina stenosis at C6-C7 from uncovertebral hypertrophy and facet osteoarthritis. Heterogeneous appearance of the thyroid gland with multiple thyroid nodules. Biapical emphysematous changes with scarring.
[2024-07-02] MEDS: carBAMazepine 200 MG TAB PO SCH (16:14)
[2024-07-02] MEDS ORDERED: CARB100T4 PO ×2 (17:09)
[2024-07-02] MEDS: BACLOFEN 10 MG TAB PO SCH (21:06)
--- NOTE | 2024-07-02 23:38 | DVHINCON2 ---
Date of service: Jul 02, [address] Stokes Reason for Consultation Trigeminal neurology History of Present Illness Ms. Sanderson is a 88 years old female with a history of hypertension, dyslipidemia, GERD, depression, anxiety, lupus, lupus anticoagulant syndrome, DVT, diverticulitis. She came to the [facility] on 07/01/2024 with a chief company of neck pain, she also has a history of trigeminal neurology and she is status post surgeries. I see her in my office. I saw her in the 06/2012 for un controlled trigeminal neuralgia. I saw her in 06/2012 for trigeminal neuralgia, on 10/31/2013 for TIA (MRI negative) She was a long history of trigeminal neuralgia, she is status post gamma knife treatment, but she reports the trigeminal neuralgia persist with no improvement. She sees Dr. Roseline Olvera and according to her new paperwork, she is on carbamazepine ER 100 mg a.m., 200 mg HS, gabapentin 100 mg a.m., 200 mg in the evening Urinalysis, 07/01/2024: WBC: 39, urine leukocyte esterase: 2+ WBC/HB/PLT/MCV, 07/02/2024: 9.9/11.8/201/90.5 BUN/CR, 07/02/2024: 28/1.04 Liver function tests, 07/02/2024: Unremarkable 2-D echocardiogram, 11/01/13: NORMAL LV SYSTOLIC FUNCTION, EF 65-70%. Carotid Doppler, 10/31/13: . No evidence for hemodynamically significant stenosis or occlusion. 2. Antegrade flow seen within the vertebral arteries bilaterally. CT C-spine, 07/02/2024: Multilevel moderate to severe degenerative changes of the cervical spine as detailed above. Grade 1 anterolisthesis of C3 on C4 and C4 on C5 of unknown chronicity which may be degenerative. Moderate right-sided neural foramina stenosis at C2-C3, severe bilateral neural foramina stenosis at C3-C4 and C4-C5 with moderate to severe bilateral neural foramina stenosis at C5-C6 and moderate bilateral neural foramina stenosis at C6-C7 from uncovertebral hypertrophy and facet osteoarthritis. Heterogeneous appearance of the thyroid gland with multiple thyroid nodules. Biapical emphysematous changes with scarring \MRI brain, 10/31/13: 1. Atrophic and moderate to severe involutional changes. No acute intracranial processes. No acute ischemia. MRI head, : No acute intracranial abnormality or recent infarct. Severe chronic microvascular ischemic changes MRA brain, 10/31/13: Normal MR angiograms of the head without contrast. No aneurysms or stenoses Past Medical History Hypertension, dyslipidemia, GERD, depression, anxiety, lupus, lupus anticoagulant syndrome, DVT, diverticulitis, she denies a history of stroke/TIA Past Surgical History Breast cancer resection, colostomy, hysterectomy, Gamma knife, micrograms vascular decompression for trigeminal neuralgia Family History: Cerebrovascular accident (CVA) G8 FATHER FH: epilepsy 19 CHILD FH: heart attack G8 FATHER FH: lung cancer G8 BROTHER FH: obesity 19 CHILD FH: pancreatic cancer uncle uncle grandma FH: stomach cancer FH: stomach ulcer G8 MOTHER FH: stroke G8 SISTER Hypercholesterolemia G8 MOTHER Stroke Family History Dyslipidemia, coronary artery disease, heart attack, stroke, seizure, cancers Social History She doesn't smoke, no history of alcohol recreational substances abuse Allergies: Coded Allergies: NO KNOWN ALLERGIES (Unverified , 11/12/19) Home Meds Reported Medications Carbamazepine (Carbamazepine ER) 100 Mg Tab, 200 MG PO QPM, TAB 07/02/24 Carbamazepine (Carbamazepine ER) 100 Mg Tab, 100 MG PO QAM, TAB 07/02/24 Amlodipine Besylate (Amlodipine Besylate) 5 Mg Tab, 5 MG PO HS 07/02/24 Rosuvastatin Calcium (Crestor) 20 Mg Tab, 1 TAB PO HS 07/02/24 Tramadol Hcl (Tramadol Hcl) 50 Mg Tab, 50 MG PO BID PRN for TRIGEMINAL NEURALGIA for 30 Days, #60 04/25/24 Baclofen (Baclofen) 10 Mg Tab, 1 TAB PO HS for 30 Days, #30 04/25/24 Ibuprofen (Ibuprofen) 600 Mg Tab, 1 TAB PO BID PRN for 30 Days, #60 0 Refills 04/25/24 Hydrocodone-Acetaminophen (Hydrocodone Bitartrate/AC 5-325 mg) 1 Tab Tab, 1 TAB PO Q6HR PRN for 30 Days, #120 04/25/24 Gabapentin (Gabapentin) 100 Mg Cap, 200 MG PO QPM for 30 Days, #90 04/24/24 Gabapentin (Gabapentin) 100 Mg Cap, 100 MG PO QAM for 30 Days, #90 04/24/24 Hydroxychloroquine Sulfate (PLAQUENIL) 200 Mg Tab, 1 TAB PO BID for 30 Days, #60 12/29/20 Lisinopril (Lisinopril) 10 Mg Tab, 1 TAB PO BID 02/20/18 Discontinued Reported Medications Carbamazepine (TEGretol TABLET) 200 Mg Tb, 200 MG PO QPM for 30 Days, #90 04/24/24 Carbamazepine (TEGretol TABLET) 200 Mg Tb, 100 MG PO QAM for 30 Days, #90 04/24/24 Current Medications Current Medications Medications (Trade) Dose Ordered Sig/Rojelio Route PRN Reason Start Time Stop Time Status Last Admin Amlodipine Besylate (Norvasc Tablet) 5 mg DAILY PO 07/02/24 10:00 07/02/24 08:46 Famotidine (Pepcid Injection) 20 mg DAILY IV 07/02/24 10:00 Ceftriaxone Sodium 50 ml @ 100 mls/hr DAILY@09 IV 07/02/24 09:00 07/02/24 08:47 Carbamazepine (TEGretol TABLET) 400 mg TID PO 07/02/24 14:00 07/02/24 21:07 Baclofen (Liorisal Tablet) 10 mg HS PO 07/02/24 22:00 07/02/24 21:06 Review of Systems Unremarkable other than described above Vital Signs Vital Signs Date Time Temp Pulse Resp B/P (MAP) Pulse Ox O2 Delivery O2 Flow Rate FiO2 07/02/24 21:06 83 148/57 07/02/24 21:00 98.7 17 95 98.7 07/02/24 07:30 Room Air* 0 21 Physical Exam GENERAL EXAM: General: the patient is well developed and nourished. She is in severe pain. HEENT: Normocephalic, neck is supple, no carotid bruits. No mass. RESPIRATORY: Normal respiratory effort with symmetrical lung expansion. Lungs clear to auscultation. CARDIOVASCULAR: Regular rate and rhythm with no murmurs. S1, S2. ABDOMEN: Soft, nontender, normal bowel sound NEUROLOGICAL: MENTAL STATUS: Awake and alert. Oriented to person, place, time and general circumstances. Able to give personal history. SPEECH, LANGUAGE, HIGHER CORTICAL FUNCTION: no aphasia or dysathria. CRANIAL NERVES: #2: Intact visual montes to confrontation. The optic discs were sharp. #3,4,6: Pupils are equal, round and reactive. EOMs full and conjugate. No nystagmus. #5: Facial sensation intact in all three divisions bilaterally. Mandibular strength intact. #7: Facial muscles symmetrical and strength intact. #8: Hearing grossly normal to voice. #9,10: Uvula and soft palate rise in the midline. Swallow and voice are normal. #11: Trapezius and sternomastoid strength intact bilaterally. #12: Tongue midline. No fasciculations or atrophy. SENSATION: Sensation to touch and pinprick is normal. MOTOR: Normal tone in the upper and lower extremity. Normal muscle bulk. No fasciculations. No abnormal movements or posturing. Muscle strength of the major groups in the upper extremities is 5/5. Muscle strength of the major groups in the lower extremities is 5/5. REFLEXES: Deep tendon reflexes symmetrical. No pathological reflexes. CEREBELLAR/COORDINATION: Finger to nose are normal bilaterally. GAIT/STATION: deferred. Labs/Diagnostic Data Labs Test 07/02/24 08:13 07/01/24 16:28 Range/Units White Blood Count 9.9 # 4.4-10.8 10^3/uL Red Blood Count 3.89 L 4.0-5.20 10^6/uL Hemoglobin 11.8 L 12.2-16.2 g/dL Hematocrit 35.2 L 36.0-46.0 % Mean Corpuscular Volume 90.5 80.0-100.0 fL Mean Corpuscular Hemoglobin 30.3 28.0-32.0 pg Mean Corpuscular Hemoglobin Concent 33.5 32.0-36.0 g/dL Red Cell Distribution Width 16.2 H 11.8-14.3 % Platelet Count 201 140-450 10^3/uL Mean Platelet Volume 9.1 6.9-10.8 fL Neutrophils (%) (Auto) 83.9 H 37.0-80.0 % Lymphocytes (%) (Auto) 8.7 L 10.0-50.0 % Monocytes (%) (Auto) 6.4 0.0-12.0 % Eosinophils (%) (Auto) 0.7 0.0-7.0 % Basophils (%) (Auto) 0.3 0.0-2.0 % Neutrophils # (Auto) 8.3 1.6-8.6 10 ^3/uL Lymphocytes # (Auto) 0.9 0.4-5.4 10 ^3/uL Monocytes # (Auto) 0.6 0-1.3 10 ^3/uL Eosinophils # (Auto) 0.1 0-0.8 10 ^3/uL Basophils # (Auto) 0 0-0.2 10 ^3/uL Nucleated Red Blood Cells 0.0 % Sodium Level 136 136-145 mmol/L Potassium Level 4.1 3.5-5.1 mmol/L Chloride Level 101 98-107 mmol/L Carbon Dioxide Level 23 20-31 mmol/L Anion Gap 12 5-15 Blood Urea Nitrogen 28 H 9-23 mg/dL Creatinine 1.04 H 0.550-1.02 mg/dL Glomerular Filtration Rate Calc 52 >90 mL/min BUN/Creatinine Ratio 26.9 H 10.0-20.0 Serum Glucose 107 H 74-106 mg/dL Calcium Level 9.9 8.7-10.4 mg/dL Total Bilirubin 0.7 0.2-1.0 mg/dL Aspartate Amino Transferase (AST) 25 13-40 U/L Alanine Aminotransferase (ALT) 13 7-40 U/L Alkaline Phosphatase 114 46-116 U/L Total Protein 7.4 5.7-8.2 g/dL Albumin 3.9 3.2-4.8 g/dL Urine Color Light-yellow Yellow Urine Clarity Clear Clear Urine pH 5.5 5.0-9.0 Urine Specific [place] 1.019 1.001-1.035 Urine Protein Trace H Negative Urine Ketones Negative Negative Urine Blood Negative Negative /uL Urine Nitrite Negative Negative Urine Bilirubin Negative Negative Urine Urobilinogen Normal Negative mg/dL Urine Leukocyte Esterase 2+ Negative /uL Urine RBC 5 0 - 4 /hpf Urine Microscopic WBC 39 H 0-5 /HPF Urine Squamous Epithelial Cells Few <5 /hpf Urine Bacteria Few H None Seen /hpf Urine Glucose Normal Normal mg/dL Assessment Trigeminal neuralgia s/p surgeries Neck pain Plan/Recommendation Monitoring, Supportive treatment Tegretol ER, 100 mg in the morning Technical ER, 200 mg evening Neurontin 100 mg in the morning Gabapentin 200mg in the evening Trazodone 50 mg HS for depression and insomnia Further address neck pain in the morning Prognosis: Poor This medical document was created using an electronic medical record system with [employer] dictation system. Although this document has been carefully reviewed, there may still be some phonetic and typographical errors. These areas are purely typographical due to imperfections of the software programs, and do not reflect any compromise in the patient's medical care. Plan discussed with: Patient, Other FRANCO CONSTANTINO MD Jul 02, 2024 23:38
[2024-07-03] VITALS (9 sets, daily range): BP systolic 128–189; BP diastolic 58–77; PULSE 73–85; RESP 16–21; TEMP 97.7–98.8; O2SAT 93–98
[2024-07-03] MEDS: GABAPENTIN 100 MG CAP PO SCH ×2 (06:45→21:02)
[2024-07-03] MEDS: carBAMazepine 200 MG TAB PO SCH ×2 (06:46→21:03)
--- NOTE | 2024-07-03 14:04 | DVHPN2 ---
Progress Note Date Seen: Jul 03, 2024 Medical Necessity Reason Pt with a Central, PICC or Fol: No Subjective Patient reports: No new complaints Review of Systems: HEENT:Normal, CVS:Normal, RESPIRATORY:Normal, GI:Normal, :Normal, MSK:Normal, NEURO:Normal Objective vital signs Vital Sign Date Time Temp Pulse Resp B/P (MAP) Pulse Ox O2 Delivery O2 Flow Rate FiO2 07/03/24 13:00 97.7 74 18 146/58 (87) 98 97.7 07/02/24 20:30 Room Air* 0 21 Total Intake and Output 07/02/24 07/02/24 07/03/24 15:00 23:00 07:00 Intake Total 50 ml 924 ml 485 ml Balance 50 ml 924 ml 485 ml medications Current Medications Medications Dose Ordered Sig/Rojelio Route Start Time Stop Time Status Last Admin Dose Admin Amlodipine Besylate 5 mg DAILY PO 07/02/24 10:00 07/03/24 08:39 5 MG Metoprolol Tartrate 25 mg BID PO 07/01/24 22:00 07/03/24 08:39 25 MG Hydralazine HCl 10 mg Q6HP PRN IV 07/01/24 15:45 07/02/24 05:32 10 MG Famotidine 20 mg DAILY IV 07/02/24 10:00 Warfarin Sodium RX PROTOCOL PER PHARMACY PO 07/01/24 15:45 Hold Atorvastatin Calcium 10 mg HS PO 07/01/24 22:00 07/02/24 21:08 10 MG Sodium Chloride 1,000 ml @ 60 mls/hr [id number] IV 07/01/24 15:45 07/03/24 01:11 60 MLS/HR Acetaminophen/ Hydrocodone Bitart 1 tab Q4HP PRN PO 07/01/24 15:45 07/03/24 01:07 1 TAB Ondansetron HCl 4 mg Q4HP PRN IV 07/01/24 15:45 Docusate Sodium 100 mg BIDPRN PRN PO 07/01/24 15:45 Acetaminophen 500 mg Q6HP PRN PO 07/01/24 15:45 Nitroglycerin 0.4 mg Q5MINP PRN SL 07/01/24 15:45 Morphine Sulfate 2 mg Q30M PRN IV 07/01/24 15:45 Ceftriaxone Sodium 50 ml @ 100 mls/hr DAILY@09 IV 07/02/24 09:00 07/03/24 08:39 100 MLS/HR Baclofen 10 mg HS PO 07/02/24 22:00 07/02/24 21:06 10 MG Carbamazepine 100 mg QAM PO 07/03/24 07:00 07/03/24 06:46 100 MG Carbamazepine 200 mg HS PO 07/03/24 22:00 Gabapentin 100 mg QAM PO 07/03/24 07:00 07/03/24 06:45 100 MG Gabapentin 200 mg HS PO 07/03/24 22:00 Trazodone HCl 50 mg HS PO 07/03/24 22:00 Examination: GENERAL:Normal, HEENT:Normal, NECK:Normal, LUNGS:Normal, CVS:Normal, ABDOMEN:Normal, MSK:Normal, SKIN:Normal, NEURO:Normal, :Normal laboratory and microbiology Laboratory Tests 07/02/24 08:13 Test 07/02/24 08:13 Range/Units Serum Glucose 107 H 74-106 mg/dL Microbiology Date/Time Source Procedure Growth Status 07/01/24 16:28 Voided Urine Urine Culture - Preliminary Resulted Problem List/Assessment/Plan Problem List/Assessment/Plan #1 neck pain with radiculopathy with djd neck: dw dr Gold, pain meds #2 htn #3 h/o colostomy #4 h/o breast cancer #5 lupus #6 h/o dvt #7 pvd #8 uti: iv rocephin advance care planning- dnr- time spent 19 mins Plan discussed with: Patient My Orders My Orders Orders - ZANDRA SAINI MD Procedure Category Date Status Time Hydroxychloroquine PHA 07/03/24 Transmitted Tablet (Plaquenil Tab 22:00 Lidocaine 5% Topical PHA 07/03/24 Transmitted Patch (Lidoderm 5% 14:00 Lidocaine 5% Topical PHA 07/04/24 Transmitted Patch (Lidoderm 5% 10:00 Pt Request For Service PT 07/03/24 Transmitted 13:57 Basic Metabolic Panel LAB 07/04/24 Verified 06:00 Date of Service: Jul 03, 2024 Billing Provider: ZANDRA SAINI MD Common Visit Codes: [id number] INP/OBS CARE(HIGH) Secondary Visit Codes: 29902-[id number] CARE PLAN 30 MINUTES ZANDRA SAINI MD Jul 03, 2024 14:04
[2024-07-03] MEDS: LIDOCAINE 5% TOPICAL PATCH TOP ONE (15:48)
[2024-07-03] MEDS: hydrOXYchloroQUINE SULFATE 200 MG TAB PO SCH (21:03)
[2024-07-03] MEDS ORDERED: traZODone HCL 50 MG TAB PO SCH (22:00)
--- NOTE | 2024-07-03 23:37 | DVHPN2 ---
Progress Note - Dictate Date Seen: Jul 03, 2024 Medical Necessity Reason Pt with a Central, PICC or Fol: No Subjective Ms. Sanderson is a 88 years old female with a history of hypertension, dyslipidemia, GERD, depression, anxiety, lupus, lupus anticoagulant syndrome, DVT, diverticulitis. She came to the [facility] on 07/01/2024 with a chief company of neck pain, she also has a history of trigeminal neurology and she is status post surgeries. I see her in my office. I saw her in 06/2012 for trigeminal neuralgia, on 10/31/2013 for TIA (MRI negative) I have seen and examined the patient, I have discussed with her nurse, she reports the pain is pretty bed today, I have discussing, we decided to increase the dose of Tegretol to 200 mg b.i.d. however we will cut back if she has side effects She she does not look in pain Urinalysis, 07/01/2024: WBC: 39, urine leukocyte esterase: 2+ WBC/HB/PLT/MCV, 07/02/2024: 9.9/11.8/201/90.5 BUN/CR, 07/02/2024: 28/1.04 Liver function tests, 07/02/2024: Unremarkable 2-D echocardiogram, 11/01/13: NORMAL LV SYSTOLIC FUNCTION, EF 65-70%. Carotid Doppler, 10/31/13: . No evidence for hemodynamically significant stenosis or occlusion. 2. Antegrade flow seen within the vertebral arteries bilaterally. CT C-spine, 07/02/2024: Multilevel moderate to severe degenerative changes of the cervical spine as detailed above. Grade 1 anterolisthesis of C3 on C4 and C4 on C5 of unknown chronicity which may be degenerative. Moderate right-sided neural foramina stenosis at C2-C3, severe bilateral neural foramina stenosis at C3-C4 and C4-C5 with moderate to severe bilateral neural foramina stenosis at C5-C6 and moderate bilateral neural foramina stenosis at C6-C7 from uncovertebral hypertrophy and facet osteoarthritis. Heterogeneous appearance of the thyroid gland with multiple thyroid nodules. Biapical emphysematous changes with scarring \MRI brain, 10/31/13: 1. Atrophic and moderate to severe involutional changes. No acute intracranial processes. No acute ischemia. MRI head, : No acute intracranial abnormality or recent infarct. Severe chronic microvascular ischemic changes MRA brain, 10/31/13: Normal MR angiograms of the head without contrast. No aneurysms or stenoses vital signs Vital Sign Date Time Temp Pulse Resp B/P (MAP) Pulse Ox O2 Delivery O2 Flow Rate FiO2 07/03/24 21:03 126/62 07/03/24 21:00 98.0 85 17 94 98.0 07/03/24 20:00 Room Air* 0 21 Total Intake and Output 07/02/24 07/02/24 07/03/24 15:00 23:00 07:00 Intake Total 50 ml 924 ml 485 ml Balance 50 ml 924 ml 485 ml medications Current Medications Medications Dose Ordered Sig/Rojelio Route Start Time Stop Time Status Last Admin Dose Admin Amlodipine Besylate 5 mg DAILY PO 07/02/24 10:00 07/03/24 08:39 5 MG Metoprolol Tartrate 25 mg BID PO 07/01/24 22:00 07/03/24 21:03 25 MG Hydralazine HCl 10 mg Q6HP PRN IV 07/01/24 15:45 07/02/24 05:32 10 MG Famotidine 20 mg DAILY IV 07/02/24 10:00 Atorvastatin Calcium 10 mg HS PO 07/01/24 22:00 07/03/24 21:03 10 MG Acetaminophen/ Hydrocodone Bitart 1 tab Q4HP PRN PO 07/01/24 15:45 07/03/24 17:57 1 TAB Ondansetron HCl 4 mg Q4HP PRN IV 07/01/24 15:45 Docusate Sodium 100 mg BIDPRN PRN PO 07/01/24 15:45 Acetaminophen 500 mg Q6HP PRN PO 07/01/24 15:45 Nitroglycerin 0.4 mg Q5MINP PRN SL 07/01/24 15:45 Morphine Sulfate 2 mg Q30M PRN IV 07/01/24 15:45 Ceftriaxone Sodium 50 ml @ 100 mls/hr DAILY@09 IV 07/02/24 09:00 07/03/24 08:39 100 MLS/HR Baclofen 10 mg HS PO 07/02/24 22:00 07/03/24 21:03 10 MG Carbamazepine 100 mg QAM PO 07/03/24 07:00 07/03/24 06:46 100 MG Carbamazepine 200 mg HS PO 07/03/24 22:00 07/03/24 21:03 200 MG Gabapentin 100 mg QAM PO 07/03/24 07:00 07/03/24 06:45 100 MG Gabapentin 200 mg HS PO 07/03/24 22:00 07/03/24 21:02 200 MG Hydroxychloroquine Sulfate 200 mg BID PO 07/03/24 22:00 07/03/24 21:03 200 MG Lidocaine 1 patch DAILY TOP 07/04/24 10:00 objective General: the patient is well developed and nourished. She is in severe pain. MENTAL STATUS: Awake and alert. Oriented to person, place, time and general circumstances. Able to give personal history. SPEECH, LANGUAGE, HIGHER CORTICAL FUNCTION: no aphasia or dysathria. CRANIAL NERVES: Pupils are equal, round and reactive. EOMs full and conjugate. No nystagmus. Facial sensation intact in all three divisions bilaterally. Mandibular strength intact. Facial muscles symmetrical and strength intact. SENSATION: Sensation to touch and pinprick is normal. MOTOR: Normal tone in the upper and lower extremity. Normal muscle bulk. No fasciculations. No abnormal movements or posturing. Muscle strength of the major groups in the extremities is 5/5. REFLEXES: Deep tendon reflexes symmetrical. No pathological reflexes. CEREBELLAR/COORDINATION: Finger to nose are normal bilaterally. GAIT/STATION: deferred. laboratory and microbiology Laboratory Tests 07/02/24 08:13 Test 07/02/24 08:13 Range/Units Serum Glucose 107 H 74-106 mg/dL Problem List Trigeminal neuralgia s/p surgeries Neck pain History of DVT Lupus anticoagulant syndrome Anxiety Assessment/Plan Monitoring, Supportive treatment Increase Tegretol ER, 200 mg bid Neurontin 100 mg in the morning Gabapentin 200mg in the evening Trazodone 50 mg HS for depression and insomnia Further address neck pain later This medical document was created using an electronic medical record system with [employer] dictation system. Although this document has been carefully reviewed, there may still be some phonetic and typographical errors. These a Prognosis poor Plan discussed with: Patient, Other Critical Care Time(min): 35 FRANCO CONSTANTINO MD Jul 03, 2024 23:37
[2024-07-04] MEDS: carBAMazepine 200 MG TAB PO SCH (00:30)
[2024-07-04 05:00] VITALS: BP 185/68; PULSE 70; RESP 17; TEMP 98.2; O2SAT 97
[2024-07-04 07:34] LABS: Anion Gap 10 (5-15); Carbon Dioxide 24 mmol/L (20-31); Chloride 103 mmol/L (98-107); Potassium 3.7 mmol/L (3.5-5.1); Sodium 137 mmol/L (136-145)
[2024-07-04 07:40] LABS: BUN/Creatinine Ratio 19.8 (10.0-20.0); Blood Urea Nitrogen 17 mg/dL (9-23); Glucose 104 mg/dL (74-106)
[2024-07-04 09:00] VITALS: BP 144/57; PULSE 74; RESP 17; TEMP 97.9; O2SAT 93
[2024-07-04] MEDS: LIDOCAINE 5% TOPICAL PATCH TOP SCH (09:51)
[2024-07-04 13:00] VITALS: BP 136/51; PULSE 78; RESP 17; TEMP 98.3; O2SAT 93
--- NOTE | 2024-07-04 15:47 | DVHDS2 ---
Discharge Summary Date of Admission Jul 01, 2024 at 15:33 Date of Discharge: Jul 04, 2024 Labs/Diagnostic Data: Laboratory Results Test 07/04/24 06:03 07/02/24 08:13 07/01/24 16:28 Sodium Level 137 mmol/L (136-145) Potassium Level 3.7 mmol/L (3.5-5.1) Chloride Level 103 mmol/L (98-107) Carbon Dioxide Level 24 mmol/L (20-31) Anion Gap 10 (5-15) Blood Urea Nitrogen 17 mg/dL (9-23) Creatinine 0.86 mg/dL (0.550-1.02) Glomerular Filtration Rate Calc 65 mL/min (>90) BUN/Creatinine Ratio 19.8 (10.0-20.0) Serum Glucose 104 mg/dL (74-106) Calcium Level 9.0 mg/dL (8.7-10.4) White Blood Count 9.9 10^3/uL (4.4-10.8) Red Blood Count 3.89 10^6/uL (4.0-5.20) Hemoglobin 11.8 g/dL (12.2-16.2) Hematocrit 35.2 % (36.0-46.0) Mean Corpuscular Volume 90.5 fL (80.0-100.0) Mean Corpuscular Hemoglobin 30.3 pg (28.0-32.0) Mean Corpuscular Hemoglobin Concent 33.5 g/dL (32.0-36.0) Red Cell Distribution Width 16.2 % (11.8-14.3) Platelet Count 201 10^3/uL (140-450) Mean Platelet Volume 9.1 fL (6.9-10.8) Neutrophils (%) (Auto) 83.9 % (37.0-80.0) Lymphocytes (%) (Auto) 8.7 % (10.0-50.0) Monocytes (%) (Auto) 6.4 % (0.0-12.0) Eosinophils (%) (Auto) 0.7 % (0.0-7.0) Basophils (%) (Auto) 0.3 % (0.0-2.0) Neutrophils # (Auto) 8.3 10 ^3/uL (1.6-8.6) Lymphocytes # (Auto) 0.9 10 ^3/uL (0.4-5.4) Monocytes # (Auto) 0.6 10 ^3/uL (0-1.3) Eosinophils # (Auto) 0.1 10 ^3/uL (0-0.8) Basophils # (Auto) 0 10 ^3/uL (0-0.2) Nucleated Red Blood Cells 0.0 % Total Bilirubin 0.7 mg/dL (0.2-1.0) Aspartate Amino Transferase (AST) 25 U/L (13-40) Alanine Aminotransferase (ALT) 13 U/L (7-40) Alkaline Phosphatase 114 U/L (46-116) Total Protein 7.4 g/dL (5.7-8.2) Albumin 3.9 g/dL (3.2-4.8) Urine Color Light-yellow (Yellow) Urine Clarity Clear (Clear) Urine pH 5.5 (5.0-9.0) Urine Specific [place] 1.019 (1.001-1.035) Urine Protein Trace (Negative) Urine Ketones Negative (Negative) Urine Blood Negative /uL (Negative) Urine Nitrite Negative (Negative) Urine Bilirubin Negative (Negative) Urine Urobilinogen Normal mg/dL (Negative) Urine Leukocyte Esterase 2+ /uL (Negative) Urine RBC 5 /hpf (0 - 4) Urine Microscopic WBC 39 /HPF (0-5) Urine Squamous Epithelial Cells Few /hpf (<5) Urine Bacteria Few /hpf (None Seen) Urine Glucose Normal mg/dL (Normal) Other Laboratory Tests 07/04/24 06:03 07/02/24 08:13 Brief Hx & Hospital Course: see dictated note Condition at Discharge: Fair Final Diagnosis/Problems List neck pain Discharge Disposition: Assisted Living Facility Discharge Instruct/Medications Diet: Regular Activity: No Restrictions, As Tolerated Follow Up/Referral: fu with pcp in 1 wk Medications: resume home meds dc plan for 07/05/24 new meds per med list Discharge Statement: "Patient was advised to return to the ER or call 911 if any headaches, dizziness, shortness of breath, chest pain, abdominal pain, bleeding, fevers, or worsening of medical condition. Patient was counseled about treatment plan, medications, possible side effects, patientverbalized understanding. All questions were answered to the best of my ability. This discharge took greater then 30 minutes in planning, reviewing documentation, counseling the patient, and discussing with other team members." ASSESSMENT ASSESSMENT Assessment neck pain Date of Service: Jul 04, 2024 Billing Provider: ZANDRA SAINI MD Common Visit Codes: 54178-NMB/OBS DISCH DAY >30min ZANDRA SAINI MD Jul 04, 2024 15:47
--- NOTE | 2024-07-04 16:49 | DVHDS ---
DATE OF DISCHARGE: 07/04/2024 HISTORY OF PRESENT ILLNESS: The patient is an 89-year-old lady who was admitted with complaints of severe neck pain and has history of hypertension, TIA, anxiety and depression. HOSPITAL COURSE: The patient was seen in Neurology consult by Dr. Gold. 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 The patient had a UTI, for which she was given IV antibiotics. The patient's medications have been adjusted by Dr. Gold, and she will be discharged back to [facility] to follow up with him and a primary care doctor. FINAL DIAGNOSES: Therefore, * Neck pain with a cervical stenosis with radiculopathy. * Hypertension. * History of colostomy. * History of breast cancer. * Lupus. * History of deep venous thrombosis. * Peripheral vascular disease. * Urinary tract infection. * DNR status. Time spent in discharge planning and review of plan with the patient and nursing was 38 minutes. MD PATRICIA Machuca/MAX TID: [id number] RECEIPT: [id number]
[2024-07-04 17:00] VITALS: BP 159/61; PULSE 86; RESP 17; TEMP 97.9; O2SAT 95
[2024-07-04 21:00] VITALS: BP 157/66; PULSE 89; RESP 19; TEMP 98.3; O2SAT 96
--- NOTE | 2024-07-04 23:35 | DVHPN2 ---
Progress Note - Dictate Date Seen: Jul 04, 2024 Medical Necessity Reason Pt with a Central, PICC or Fol: No Subjective Ms. Sanderson is a 88 years old female with a history of hypertension, dyslipidemia, GERD, depression, anxiety, lupus, lupus anticoagulant syndrome, DVT, diverticulitis. She came to the [facility] on 07/01/2024 with a chief company of neck pain, she also has a history of trigeminal neurology and she is status post surgeries. I see her in my office. I saw her in 06/2012 for trigeminal neuralgia, on 10/31/2013 for TIA (MRI negative) I have seen and examined the patient, I have discussed with her nurse, raeann. She was alert and oriented x3, the facial pain is better, she has not reported pain to night club manager nurse yet Urinalysis, 07/01/2024: WBC: 39, urine leukocyte esterase: 2+ WBC/HB/PLT/MCV, 07/02/2024: 9.9/11.8/201/90.5 BUN/CR, 07/02/2024: 28/1.04 Liver function tests, 07/02/2024: Unremarkable 2-D echocardiogram, 11/01/13: NORMAL LV SYSTOLIC FUNCTION, EF 65-70%. Carotid Doppler, 10/31/13: . No evidence for hemodynamically significant stenosis or occlusion. 2. Antegrade flow seen within the vertebral arteries bilaterally. CT C-spine, 07/02/2024: Multilevel moderate to severe degenerative changes of the cervical spine as detailed above. Grade 1 anterolisthesis of C3 on C4 and C4 on C5 of unknown chronicity which may be degenerative. Moderate right-sided neural foramina stenosis at C2-C3, severe bilateral neural foramina stenosis at C3-C4 and C4-C5 with moderate to severe bilateral neural foramina stenosis at C5-C6 and moderate bilateral neural foramina stenosis at C6-C7 from uncovertebral hypertrophy and facet osteoarthritis. Heterogeneous appearance of the thyroid gland with multiple thyroid nodules. Biapical emphysematous changes with scarring \MRI brain, 10/31/13: 1. Atrophic and moderate to severe involutional changes. No acute intracranial processes. No acute ischemia. MRI head, : No acute intracranial abnormality or recent infarct. Severe chronic microvascular ischemic changes MRA brain, 6/5/14: Normal MR angiograms of the head without contrast. No aneurysms or stenoses vital signs Vital Sign Date Time Temp Pulse Resp B/P (MAP) Pulse Ox O2 Delivery O2 Flow Rate FiO2 07/04/24 21:54 89 157/66 07/04/24 21:00 98.3 19 96 98.3 07/04/24 20:00 Room Air* 0 21 Total Intake and Output 07/03/24 07/03/24 07/04/24 15:00 23:00 07:00 Intake Total 50 ml 600 ml 370 ml Balance 50 ml 600 ml 370 ml medications Current Medications Medications Dose Ordered Sig/Rojelio Route Start Time Stop Time Status Last Admin Dose Admin Amlodipine Besylate 5 mg DAILY PO 07/02/24 10:00 07/04/24 09:50 5 MG Metoprolol Tartrate 25 mg BID PO 07/01/24 22:00 07/04/24 21:54 25 MG Hydralazine HCl 10 mg Q6HP PRN IV 07/01/24 15:45 07/04/24 05:02 10 MG Famotidine 20 mg DAILY IV 07/02/24 10:00 07/04/24 09:51 20 MG Atorvastatin Calcium 10 mg HS PO 07/01/24 22:00 07/04/24 21:54 10 MG Acetaminophen/ Hydrocodone Bitart 1 tab Q4HP PRN PO 07/01/24 15:45 07/04/24 01:35 1 TAB Ondansetron HCl 4 mg Q4HP PRN IV 07/01/24 15:45 Docusate Sodium 100 mg BIDPRN PRN PO 07/01/24 15:45 Acetaminophen 500 mg Q6HP PRN PO 07/01/24 15:45 Nitroglycerin 0.4 mg Q5MINP PRN SL 07/01/24 15:45 Morphine Sulfate 2 mg Q30M PRN IV 07/01/24 15:45 Ceftriaxone Sodium 50 ml @ 100 mls/hr DAILY@09 IV 07/02/24 09:00 07/04/24 09:08 100 MLS/HR Baclofen 10 mg HS PO 07/02/24 22:00 07/04/24 21:54 10 MG Carbamazepine 200 mg HS PO 07/03/24 22:00 07/04/24 21:54 200 MG Gabapentin 100 mg QAM PO 07/03/24 07:00 07/04/24 06:20 100 MG Gabapentin 200 mg HS PO 07/03/24 22:00 07/04/24 21:52 200 MG Hydroxychloroquine Sulfate 200 mg BID PO 07/03/24 22:00 07/04/24 21:54 200 MG Lidocaine 1 patch DAILY TOP 07/04/24 10:00 07/04/24 09:51 1 PATCH Carbamazepine 200 mg QAM PO 07/04/24 00:30 07/04/24 06:21 200 MG objective General: the patient is well developed and nourished. She is in severe pain. MENTAL STATUS: Awake and alert. Oriented to person, place, time and general circumstances. Able to give personal history. SPEECH, LANGUAGE, HIGHER CORTICAL FUNCTION: no aphasia or dysathria. CRANIAL NERVES: Pupils are equal, round and reactive. EOMs full and conjugate. No nystagmus. Facial sensation intact in all three divisions bilaterally. Mandibular strength intact. Facial muscles symmetrical and strength intact. SENSATION: Sensation to touch and pinprick is normal. MOTOR: Normal tone in the upper and lower extremity. Normal muscle bulk. No fasciculations. No abnormal movements or posturing. Muscle strength of the major groups in the extremities is 5/5. REFLEXES: Deep tendon reflexes symmetrical. No pathological reflexes. CEREBELLAR/COORDINATION: Finger to nose are normal bilaterally. GAIT/STATION: deferred. laboratory and microbiology Laboratory Tests 07/04/24 06:03 07/02/24 08:13 Test 07/04/24 06:03 Range/Units Serum Glucose 104 74-106 mg/dL Problem List Trigeminal neuralgia s/p surgeries Neck pain History of DVT Lupus anticoagulant syndrome Anxiety Assessment/Plan Monitoring, Supportive treatment Tegretol ER, 200 mg bid Neurontin 100 mg in the morning Gabapentin 200mg in the evening Trazodone 50 mg HS for depression and insomnia Further address neck pain later This medical document was created using an electronic medical record system with [employer] dictation system. Although this document has been carefully reviewed, there may still be some phonetic and typographical errors. These a Prognosis poor Plan discussed with: Other FRANCO CONSTANTINO MD Jul 04, 2024 23:35
[2024-07-05 01:00] VITALS: BP 174/64; PULSE 81; RESP 19; TEMP 98; O2SAT 95
[2024-07-05 01:40] VITALS: BP 145/54
[2024-07-05 05:00] VITALS: BP 137/55; PULSE 83; RESP 18; TEMP 97.9; O2SAT 95
[2024-07-05 13:00] VITALS: BP 144/61; PULSE 79; RESP 16; TEMP 98; O2SAT 96
--- NOTE | 2024-07-05 15:48 | DVHDS2 ---
Discharge Summary Date of Admission Jul 01, 2024 at 15:33 Date of Discharge: Jul 05, 2024 Labs/Diagnostic Data: Laboratory Results Test 07/04/24 06:03 07/02/24 08:13 07/01/24 16:28 Sodium Level 137 mmol/L (136-145) Potassium Level 3.7 mmol/L (3.5-5.1) Chloride Level 103 mmol/L (98-107) Carbon Dioxide Level 24 mmol/L (20-31) Anion Gap 10 (5-15) Blood Urea Nitrogen 17 mg/dL (9-23) Creatinine 0.86 mg/dL (0.550-1.02) Glomerular Filtration Rate Calc 65 mL/min (>90) BUN/Creatinine Ratio 19.8 (10.0-20.0) Serum Glucose 104 mg/dL (74-106) Calcium Level 9.0 mg/dL (8.7-10.4) White Blood Count 9.9 10^3/uL (4.4-10.8) Red Blood Count 3.89 10^6/uL (4.0-5.20) Hemoglobin 11.8 g/dL (12.2-16.2) Hematocrit 35.2 % (36.0-46.0) Mean Corpuscular Volume 90.5 fL (80.0-100.0) Mean Corpuscular Hemoglobin 30.3 pg (28.0-32.0) Mean Corpuscular Hemoglobin Concent 33.5 g/dL (32.0-36.0) Red Cell Distribution Width 16.2 % (11.8-14.3) Platelet Count 201 10^3/uL (140-450) Mean Platelet Volume 9.1 fL (6.9-10.8) Neutrophils (%) (Auto) 83.9 % (37.0-80.0) Lymphocytes (%) (Auto) 8.7 % (10.0-50.0) Monocytes (%) (Auto) 6.4 % (0.0-12.0) Eosinophils (%) (Auto) 0.7 % (0.0-7.0) Basophils (%) (Auto) 0.3 % (0.0-2.0) Neutrophils # (Auto) 8.3 10 ^3/uL (1.6-8.6) Lymphocytes # (Auto) 0.9 10 ^3/uL (0.4-5.4) Monocytes # (Auto) 0.6 10 ^3/uL (0-1.3) Eosinophils # (Auto) 0.1 10 ^3/uL (0-0.8) Basophils # (Auto) 0 10 ^3/uL (0-0.2) Nucleated Red Blood Cells 0.0 % Total Bilirubin 0.7 mg/dL (0.2-1.0) Aspartate Amino Transferase (AST) 25 U/L (13-40) Alanine Aminotransferase (ALT) 13 U/L (7-40) Alkaline Phosphatase 114 U/L (46-116) Total Protein 7.4 g/dL (5.7-8.2) Albumin 3.9 g/dL (3.2-4.8) Urine Color Light-yellow (Yellow) Urine Clarity Clear (Clear) Urine pH 5.5 (5.0-9.0) Urine Specific [place] 1.019 (1.001-1.035) Urine Protein Trace (Negative) Urine Ketones Negative (Negative) Urine Blood Negative /uL (Negative) Urine Nitrite Negative (Negative) Urine Bilirubin Negative (Negative) Urine Urobilinogen Normal mg/dL (Negative) Urine Leukocyte Esterase 2+ /uL (Negative) Urine RBC 5 /hpf (0 - 4) Urine Microscopic WBC 39 /HPF (0-5) Urine Squamous Epithelial Cells Few /hpf (<5) Urine Bacteria Few /hpf (None Seen) Urine Glucose Normal mg/dL (Normal) Other Laboratory Tests 07/04/24 06:03 07/02/24 08:13 Brief Hx & Hospital Course: HISTORY OF PRESENT ILLNESS: The patient is an 89-year-old lady who was admitted with complaints of severe neck pain and has history of hypertension, TIA, anxiety and depression. HOSPITAL COURSE: The patient was seen in Neurology consult by Dr. Gold. 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 The patient had a UTI, for which she was given IV antibiotics. The patient's medications have been adjusted by Dr. Gold, and she will be discharged back to [facility] to follow up with him and a primary care doctor. Condition at Discharge: Fair Final Diagnosis/Problems List trigeminal neuralgia Discharge Disposition: Assisted Living Facility Discharge Instruct/Medications Diet: Regular Activity: No Restrictions, As Tolerated Follow Up/Referral: fu with pcp in 1 wk Medications: resume home meds dc plan for 07/05/24 new meds per med list Discharge Statement: "Patient was advised to return to the ER or call 911 if any headaches, dizziness, shortness of breath, chest pain, abdominal pain, bleeding, fevers, or worsening of medical condition. Patient was counseled about treatment plan, medications, possible side effects, patientverbalized understanding. All questions were answered to the best of my ability. This discharge took greater then 30 minutes in planning, reviewing documentation, counseling the patient, and discussing with other team members." ASSESSMENT ASSESSMENT Assessment neck pain Date of Service: Jul 05, 2024 Billing Provider: KERA BISHOP MD Common Visit Codes: 20782-FJK/OBS DISCH DAY >30min KERA BISHOP MD Jul 05, 2024 15:47
[2024-07-05 16:08] VITALS: BP 174/64; PULSE 88; TEMP 36.7
== END 2024-07-05 17:00 | disposition home or self-care (01) | DRG 552 ==
LOC: ER 11:36 → EDBD 11:36 → TELE 15:33 → TELE-WESTW 22:20 → WEST WING 07-03 14:10
PROVIDERS: ADMIT Nurse Practitioner Family; ATTEND Hospitalist
DX: M48.02 Spinal stenosis, cervical region (principal); N39.0 Urinary tract infection, site not specified; N17.9 Acute kidney failure, unspecified; D68.62 Lupus anticoagulant syndrome; G50.0 Trigeminal neuralgia; M50.10 Cervical disc disorder with radiculopathy, unspecified cervical region; Z66 Do not resuscitate; I10 Essential (primary) hypertension; I73.9 Peripheral vascular disease, unspecified; F41.9 Anxiety disorder, unspecified; F32.A Depression, unspecified; M54.12 Radiculopathy, cervical region; K21.9 Gastro-esophageal reflux disease without esophagitis; G47.00 Insomnia, unspecified; E78.00 Pure hypercholesterolemia, unspecified; M47.892 Other spondylosis, cervical region; G25.3 Myoclonus; Z86.73 Personal history of transient ischemic attack (TIA), and cerebral infarction without residual deficits; Z93.3 Colostomy status; Z90.49 Acquired absence of other specified parts of digestive tract; Z90.710 Acquired absence of both cervix and uterus; Z86.718 Personal history of other venous thrombosis and embolism; Z85.3 Personal history of malignant neoplasm of breast; Z80.0 Family history of malignant neoplasm of digestive organs; Z80.1 Family history of malignant neoplasm of trachea, bronchus and lung; Z82.0 Family history of epilepsy and other diseases of the nervous system; Z82.3 Family history of stroke; Z82.49 Family history of ischemic heart disease and other diseases of the circulatory system; Z79.899 Other long term (current) drug therapy
CPT/HCPCS: 36415; 72040; 72125; 80048; 80053; 81001; 85025; 87040; 87086; 97110; 97116; 97163; G0378; J3490

== ENCOUNTER → 2024-10-17 | Outpatient (CLI) | payer MEDICARE ==
[~2024-10-17] MED LIST changes: +AMLO1TAB22 PO; -AMLO1TAB23 PO; -BIOT50007 PO; -CALC667C5 PO; +CARB100T4 PO; -CARB200T5 PO; -CITA10TA5 PO; -CYAN1TAB14 PO; -METO25TA93 PO; -MULT1CHW76 PO; -PANT40TA2 PO; -TRAZ-227 PO; -WARF-66 PO
[2024-10-17 11:37] LABS: Basophils # (auto) 0 10 ^3/uL (0-0.2); Basophils % (auto) 0.5 % (0.0-2.0); Eosinophils # (auto) 0.1 10 ^3/uL (0-0.8); Eosinophils % (auto) 1.2 % (0.0-7.0); Hematocrit 33.6 % (36.0-46.0); Hemoglobin 11.1 g/dL (12.2-16.2); Lymphocytes % (auto) 16.1 % (10.0-50.0); Mean Corpuscular Hemoglobin 29.4 pg (28.0-32.0); Monocytes # (auto) 0.5 10 ^3/uL (0-1.3); Monocytes % (auto) 7.7 % (0.0-12.0); Neutrophils # (auto) 4.5 10 ^3/uL (1.6-8.6); Neutrophils % (auto) 74.5 % (37.0-80.0); Nucleated Red Blood Cells % 0.1 %; Platelet Count (auto) 204 10^3/uL (140-450); Red Blood Cells 3.77 10^6/uL (4.0-5.20); Red Cell Distribution Width 16.7 % (11.8-14.3); White Blood Cell 6.1 10^3/uL (4.4-10.8)
[2024-10-17 11:47] LABS: Alanine Aminotransferase 13 U/L (7-40); Albumin 4.3 g/dL (3.2-4.8); Anion Gap 8 (5-15); Aspartate Aminotransferase 25 U/L (13-40); BUN/Creatinine Ratio 23.9 (10.0-20.0); Calcium 10.2 mg/dL (8.7-10.4); Chloride 100 mmol/L (98-107); Glucose 82 mg/dL (74-106); Potassium 3.7 mmol/L (3.5-5.1); Sodium 140 mmol/L (136-145); Total Protein 8.1 g/dL (5.7-8.2)
[2024-10-17 11:48] LABS: Alkaline Phosphatase 152 U/L (46-116); Bilirubin, Total 0.5 mg/dL (0.2-1.0); Blood Urea Nitrogen 27 mg/dL (9-23); Carbon Dioxide 32 mmol/L (20-31)
[2024-10-17 11:49] LABS: Protein, Urine 35.3 mg/dL (1-14)
[2024-10-17 11:52] LABS: Creatinine, Urine 87.6 mg/dL (30.0-125.0); Urine Protein/Creatinine Ratio 0.4
[2024-10-17 12:10] LABS: CRP High Sensitivity 9.33 mg/dL (<1.0)
[2024-10-17 12:11] LABS: Erythrocyte Sedimentation Rate 94 mm/hr (0-20)
[2024-10-18 08:07] LABS: Complement C3 154 mg/dL (82-167)
== END | disposition home or self-care (01) ==
LOC: LAB 10:52
PROVIDERS: ATTEND Internal Medicine Rheumatology
DX: E55.9 Vitamin D deficiency, unspecified (principal); M81.0 Age-related osteoporosis without current pathological fracture; M32.10 Systemic lupus erythematosus, organ or system involvement unspecified; M79.7 Fibromyalgia; Z79.899 Other long term (current) drug therapy
CPT/HCPCS: 36415; 80053; 82306; 82570; 84156; 85025; 85652; 86141; 86160

== ENCOUNTER 2024-11-26 08:50 | Inpatient (IN) | payer MEDICARE ==
[~2024-11-26] VITALS: Ht 162.6 cm; Wt 48.7 kg
--- NOTE | 2024-11-26 09:25 | ED.PDOC ---
Jonas. trauma (HPI) HPI Comments 89 y/o F, with PMHx of TIA, HLD, HTN, anxiety, and depression presents to the ED for CC of s/p fall. EMS reports, patient is coming from home where she suffered a fall when trying to use the restroom, landing on her buttocks. Following trauma, patient complains of right hip pain worsening with movement. EMS relays, in route to the ED patient's blood pressure was high with a systolic in the 200's. Patient denies headache, head injury, chest pain, or shortness of breath. No other symptoms or modifying factors present at this time. Chief Complaint: Fall Injury Time Seen by MD: 09:00 Primary Care Provider: BOB Reviewed notes: Nurses Notes, Refrigeration Service Technician Notes, Medications, Allergies Allergies: Coded Allergies: Hydromorphone (Verified Allergy, Unknown, 11/26/24) Home Meds Reported Medications Aspirin (Aspir-81) 81 Mg Tab, 1 TAB PO DAILY, #30 TAB 5 Refills 11/26/24 Carbamazepine (Carbamazepine ER) 100 Mg Tab, 200 MG PO QPM, TAB 07/02/24 Carbamazepine (Carbamazepine ER) 100 Mg Tab, 100 MG PO QAM, TAB 07/02/24 Amlodipine Besylate (Amlodipine Besylate) 5 Mg Tab, 5 MG PO HS 07/02/24 Rosuvastatin Calcium (Crestor) 20 Mg Tab, 1 TAB PO HS 07/02/24 Tramadol Hcl (Tramadol Hcl) 50 Mg Tab, 50 MG PO BID PRN for TRIGEMINAL NEURALGIA for 30 Days, #60 04/25/24 Baclofen (Baclofen) 10 Mg Tab, 1 TAB PO HS for 30 Days, #30 04/25/24 Ibuprofen (Ibuprofen) 600 Mg Tab, 1 TAB PO BID PRN for 30 Days, #60 0 Refills 04/25/24 Hydrocodone-Acetaminophen (Hydrocodone Bitartrate/AC 5-325 mg) 1 Tab Tab, 1 TAB PO Q6HR PRN for 30 Days, #120 04/25/24 Gabapentin (Gabapentin) 100 Mg Cap, 200 MG PO QPM for 30 Days, #90 04/24/24 Gabapentin (Gabapentin) 100 Mg Cap, 100 MG PO QAM for 30 Days, #90 04/24/24 Hydroxychloroquine Sulfate (PLAQUENIL) 200 Mg Tab, 1 TAB PO BID for 30 Days, #60 12/29/20 Lisinopril (Lisinopril) 10 Mg Tab, 1 TAB PO BID 02/20/18 Information Source: Patient, Emergency Med Personnel Mode of Arrival: EMS Severity: Moderate Timing: Minutes Duration: Since onset Prehospital treatment: None Location: (R) Hip Location of laceration: None Mechanism: Fall Associated signs and symtoms: None Past Medical History PAST MEDICAL HISTORY: Anxiety, Arthritis, Depression, High Lipids, HTN, TIA Surgical History: Appendectomy, Cholecystectomy, Hernia Repair, Hysterectomy, Tonsillectomy OVERCASTER History: No Pertinent OVERCASTER History Family History Family History: No family hx of Cancer, No family hx of Stroke Social History Smoker: Non-Smoker Alcohol: Denies ETOH Use Drugs: Denies Drug Use Lives In: Penitentiary Constitutional: denies: chills, diaphoresis, fatigue, fever, malaise, sweats, weakness, others EENTM: denies: blurred vision, double vision, ear bleeding, ear discharge, ear drainage, ear pain, ear ringing, eye pain, eye redness, hearing loss, mouth pain, mouth swelling, nasal discharge, nose bleeding, nose congestion, nose pain, photophobia, tearing, throat pain, throat swelling, voice changes, others Respiratory: denies: cough, hemoptysis, orthopnea, SOB at rest, shortness of breath, SOB with excertion, stridor, wheezing, others Cardiovascular: denies: chest pain, dizzy spells, diaphoresis, Dyspnea on exertion, edema, irregular heart beat, left arm pain, lightheadedness, palpitations, PND, syncope, others Gastrointestinal: denies: abdomen distended, abdominal pain, blood streaked bowels, constipated, diarrhea, dysphagia, difficulty swallowing, hematemesis, melena, nausea, poor appetite, poor fluid intake, rectal bleeding, rectal pain, vomiting, others Genitourinary: denies: abnormal vagina bleeding, burning, dyspareunia, dysuria, flank pain, frequency, hematuria, incontinence, pain, , vagina discharge, urgency, others Neurological: denies: dizziness, fainting, headache, left sided numbness, left sided weakness, numbness, paresthesia, pre-existing deficit, right sided numbness, right sided weakness, seizure, speech problems, tingling, tremors, weakness, others Musculoskeletal: reports: others (right hip pain); denies: back pain, gout, joint pain, joint swelling, muscle pain, muscle stiffness, neck pain Integumetry: denies: bruises, change in color, change in hair/nails, dryness, laceration, lesions, lumps, rash, wounds, others Allergic/Immunocompromised: denies: Difficulty Healing, Frequent Infections, Hives, Itching, others Hematologic/Lymphatic: denies: anemia, blood clots, easy bleeding, easy bruising, swollen glands, others Endocrine: denies: excessive hunger, excessive sweating, excessive thirst, excessive urination, flushing, intolerance to cold, intolerance to heat, unexplained weight gain, unexplained weight loss, others Psychiatric: denies: anxiety, bipolar disorder, depression, hopeless, panic disorder, schizophrenia, sleepless, suicidal, others All Other Systems: Reviewed and Negative Physical Exam General Appearance: Moderate Distress HEENT: Normal ENT Inspection, Pharynx Normal, TMs Normal Neck: Full Range of Motion, Non-Tender, Normal, Normal Inspection Respiratory: Chest Non-Tender, Lungs Clear, No Accessory Muscle Use, No Respiratory Distress, Normal Breath Sounds Cardiovascular: No Edema, No JVD, No Murmur, No Gallop, Normal Peripheral Pulses, Regular Rate/Rhythm Breast Exam: Deferred Gastrointestinal: No Organomegaly, Non Tender, No Pulsatile Mass, Normal Bowel Sounds, Soft Genitalia: Deferred Pelvic: Deferred Rectal: Deferred Extremities: No calf tenderness, No pedal edema Musculoskeletal : Apperance: Normal Neurologic: Alert Cerebellar Function: NOT DONE Reflexes: NOT DONE Skin: Normal Color Peripheral Pulses: 3+ Radial (R), 3+ Radial (L) Lymphatic: No Adenopathy Was a procedure done? Was a procedure done?: No Differential Diagnosis Multiple Trauma: Fractures, Spine Injury, Contusion, Hematoma X-Ray, Labs, Meds, VS Vital Signs Date Time Temp Pulse Resp B/P (MAP) Pulse Ox O2 Delivery O2 Flow Rate FiO2 11/26/24 12:39 71 18 190/74 (112) 11/26/24 10:57 110/42 11/26/24 09:57 205/74 11/26/24 09:44 Room Air* 0 21 11/26/24 09:00 97.8 73 18 213/92 (132) 94 97.8 Lab Test 11/26/24 10:53 11/26/24 09:53 Range/Units Urine Color Light-yellow Yellow Urine Clarity Clear Clear Urine pH 7.0 5.0-9.0 Urine Specific [place] 1.007 1.001-1.035 Urine Protein Negative Negative Urine Ketones Negative Negative Urine Blood Negative Negative /uL Urine Nitrite Negative Negative Urine Bilirubin Negative Negative Urine Urobilinogen Normal Negative mg/dL Urine Leukocyte Esterase Negative Negative /uL Urine RBC 2 0 - 4 /hpf Urine Microscopic WBC 1 0-5 /HPF Urine Squamous Epithelial Cells Few <5 /hpf Urine Bacteria Few H None Seen /hpf Urine Hyaline Casts Few 0 - 2 /lpf Urine Glucose Normal Normal mg/dL White Blood Count 5.4 4.4-10.8 10^3/uL Red Blood Count 4.08 4.0-5.20 10^6/uL Hemoglobin 12.1 L 12.2-16.2 g/dL Hematocrit 36.4 36.0-46.0 % Mean Corpuscular Volume 89.1 80.0-100.0 fL Mean Corpuscular Hemoglobin 29.6 28.0-32.0 pg Mean Corpuscular Hemoglobin Concent 33.2 32.0-36.0 g/dL Red Cell Distribution Width 16.3 H 11.8-14.3 % Platelet Count 227 140-450 10^3/uL Mean Platelet Volume 8.2 6.9-10.8 fL Neutrophils (%) (Auto) 73.6 37.0-80.0 % Lymphocytes (%) (Auto) 16.5 10.0-50.0 % Monocytes (%) (Auto) 6.8 0.0-12.0 % Eosinophils (%) (Auto) 2.3 0.0-7.0 % Basophils (%) (Auto) 0.8 0.0-2.0 % Neutrophils # (Auto) 4.0 1.6-8.6 10 ^3/uL Lymphocytes # (Auto) 0.9 0.4-5.4 10 ^3/uL Monocytes # (Auto) 0.4 0-1.3 10 ^3/uL Eosinophils # (Auto) 0.1 0-0.8 10 ^3/uL Basophils # (Auto) 0 0-0.2 10 ^3/uL Nucleated Red Blood Cells 0.0 % Sodium Level 142 136-145 mmol/L Potassium Level 4.2 3.5-5.1 mmol/L Chloride Level 102 98-107 mmol/L Carbon Dioxide Level 30 20-31 mmol/L Anion Gap 10 5-15 Blood Urea Nitrogen 17 9-23 mg/dL Creatinine 1.06 H 0.550-1.02 mg/dL Glomerular Filtration Rate Calc 51 >90 mL/min BUN/Creatinine Ratio 16.0 10.0-20.0 Serum Glucose 105 74-106 mg/dL Calcium Level 11.0 H 8.7-10.4 mg/dL Troponin I High Sensitivity 36 *H </=34 ng/L Current Medications Medications (Trade) Dose Ordered Sig/Rojelio Route Start Time Stop Time Status Last Admin Sodium Chloride 1,000 ml @ 150 mls/hr Q6H40M ONCE IV 11/26/24 09:45 11/26/24 16:24 DC 11/26/24 09:57 Clonidine HCl (Catapres Tablet) 0.1 mg ONCE ONCE PO 11/26/24 10:00 11/26/24 10:01 DC 11/26/24 09:57 Clonidine HCl (Catapres Tablet) 0.1 mg Q6HP PRN PO 11/26/24 13:15 11/26/24 14:29 Hydralazine HCl (Apresoline Injection) 10 mg Q6HP PRN IV 11/26/24 13:15 11/26/24 15:44 [place] [id number] Ph: [phone] DIAGNOSTIC IMAGING Diagnostic Imaging Report : [id number] Signed PATIENT: RICKEY EASON BACCT: [id number] UNIT: [id number] : 1935 LOC: ER ROOM / BED: / AGE / SEX: 89 / F ADM STATUS: REG ER SERVICE [id number] ORDERING PHYSICIAN: MIRTA HENAO MD PROCEDURE(s): PELVS - PELVIS AP REASON: fall ORDER NUMBER(s): [id number], ACCESSION NUMBER(s): [id number] CLINICAL INDICATION: Trauma TECHNIQUE: 1 radiographic views of the pelvis were obtained. Comparison: None FINDINGS/IMPRESSION: There is no evidence of acute fracture or dislocation. 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 ATED BY: ISAI BRANCH MD DICTATED DATE/TIME: 11/26/24 1017 SIGNED BY: ISAI BRANCH MD SIGNED DATE/TIME: 11/26/24 1017 CC: Patient alert. Complaining of hip pain. Status post fall. Vitals stable. Answering all questions. Blood pressure elevated. Was given clonidine. Reviewed her previous visit. Explained to the patient. Continue monitoring. Time of 1ST Reevaluation: 09:30 Reevaluation 1ST: Unchanged Patient Education/Counseling: Diagnosis, Treatment Family Education/Counseling: No Family Present Departure 1 Departure Time of Disposition: 09:48 Impression: Primary Impression: Hypertensive emergency Additional Impression: Demand ischemia Disposition: ADMITTED INPATIENT Admit to: Med Surg Condition: Guarded Critical Care Note Critical Care Time?: Yes (90 min-critical care time only) Critical care comment: Elevated troponin continue to monitor Stability Stability form required: No Heart Score Heart Score: Heart Score Response (Comments) Value History Slightly Suspicious 0 EKG Normal 0 Age >65 2 Risk Factors >3 or Hx ASHD 2 Troponin 1-2 x's Normal limit 1 Total 5 I personally scribed for MIRTA HENAO MD ([email or web address]) on 11/26/24 at 09:25. Electronically submitted by Yanira Moss ([email or web address]). I personally scribed for MIRTA HENOA MD ([email or web address]) on 11/26/24 at 10:28. Electronically submitted by Yanira Moss [email or web address]). MIRTA HENAO MD Nov 26, 2024 09:25
[2024-11-26] MEDS: SODIUM CHLORIDE 0.9% 1,000 ML IV ONE (09:57)
[2024-11-26 10:09] LABS: Hematocrit 36.4 % (36.0-46.0); Hemoglobin 12.1 g/dL (12.2-16.2); Mean Corpuscular Hemoglobin 29.6 pg (28.0-32.0); Mean Corpuscular Volume 89.1 fL (80.0-100.0); Nucleated Red Blood Cells % 0.0 %
[2024-11-26 10:14] LABS: Chloride 102 mmol/L (98-107); Potassium 4.2 mmol/L (3.5-5.1); Sodium 142 mmol/L (136-145)
[2024-11-26 10:15] LABS: Anion Gap 10 (5-15); Carbon Dioxide 30 mmol/L (20-31)
[2024-11-26 10:20] LABS: BUN/Creatinine Ratio 16.0 (10.0-20.0); Blood Urea Nitrogen 17 mg/dL (9-23); Glucose 105 mg/dL (74-106)
--- NOTE | 2024-11-26 10:20 | DVH ---
CLINICAL INDICATION: Trauma TECHNIQUE: 1 radiographic views of the pelvis were obtained. Comparison: None FINDINGS/IMPRESSION: There is no evidence of acute fracture or dislocation. 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
[2024-11-26 10:25] LABS: Calcium 11.0 mg/dL (8.7-10.4)
[2024-11-26 11:11] LABS: Urine Protein, UAD Negative (Negative)
[2024-11-26] MEDS ORDERED: ASPI1TAB20 PO (12:44)
--- NOTE | 2024-11-26 13:18 | DVH ---
EXAM: CT STROKE CTH INDICATION: ALOC TECHNIQUE: CT of the head without intravenous contrast. Radiation Dose : 1. Head: CT Dose: CTDI volume is 53.22 mGy. Dose-length product is 961.13 mGy*cm The dose indicators for CT are the volume Computed Tomography (CT) Dose Index (CTDIvol) and the Dose Length Product (DLP), and are measured in units of mGy and mGy-cm, respectively. These indicators are not patient dose, but values generated from the CT scanner acquisition factors. The report includes radiation exposure data for exposures received during this examination. COMPARISON: HEAD WITHOUT CONTRAST on DOS: 05/13/20 FINDINGS: There is no evidence of acute intracranial hemorrhage, extra-axial collection, mass effect, midline s hift, herniation or hydrocephalus. The ventricles, sulci and cisterns are age appropriate. The knight-white differentiation is intact. Patchy periventricular and subcortical white matter hypoattenuation is nonspecific but may be related to small vessel ischemic disease. The visualized paranasal sinuses and mastoid air cells are clear. The surrounding soft tissues and osseous structures are unremarkable. IMPRESSION: No acute intracranial abnormality. Radiation optimization: All CT scans at this facility use at least one of these dose optimization сергей hniques: automated exposure control mA and/or kV adjustment per patient size (includes targeted exam s where dose is matched to clinical indication) or iterative reconstruction.
[2024-11-26] MEDS ORDERED: DOCUSATE SOD 100 MG CAP PO PRN (13:45)
[2024-11-26] MEDS ORDERED: NITROGLYCERIN 0.4 MG SL TAB SL PRN (13:45)
[2024-11-26] MEDS ORDERED: MORPHINE SULFATE INJ 2 MG/ml SYRG IV PRN (13:45)
[2024-11-26] MEDS ORDERED: ACETAMINOPHEN 325 MG TAB PO PRN (13:45)
--- NOTE | 2024-11-26 13:52 | DVHHP2 ---
History of Present Illness Reason for Visit: Fall with injury History of Present Illness Humera Sanderson is an 89-year-old female with past medical history of hypertension, hyperlipidemia, anxiety, and depression, who was brought to the hospital for a fall with injury. Patient resides at [facility], is usually A&O x 4, can do most of her own care, and administer her medications to her self. This morning the facility found her to be altered, repetitive, and had fallen. At time of assessment the patient is very repetitive and difficult to get past medical history from. Past Surgical History: Appendectomy, Cholecystectomy, Hysterectomy, Hernia Repair, Other (Colostomy), Tonsillectomy Smoke: No ALCOHOL: none Drugs: None Lives: [facility] Review of Systems Constitutional: No: Fever, Chills, Sweats, Weakness, Malaise, Other Eyes: No: Pain, Vision change, Conjunctivae inflammation, Eyelid inflammation, Other, Redness ENT: No: Ear pain, Ear discharge, Nose pain, Nose discharge, Nose congestion, Mouth pain, Mouth swelling, Throat pain, Throat swelling, Other Respiratory: No: Cough, Dry, Shortness of breath, SOB with excertion, Wheezing, Hemoptysis, Pleuritic Pain, Sputum, Wheezing, Other Cardiovascular: No: Chest Pain, Palpitations, Orthopnea, Paroxysmal Noc. Dyspnea, Edema, Lt Headedness, Other Gastrointestinal: No: Nausea, Vomiting, Abdominal Pain, Diarrhea, Constipation, Melena, Hematochezia, Other Genitourinary: No Dysuria, No Frequency, No Incontinence, No Hematuria, No Retention, No Other Musculoskeletal: No: other, neck pain, shoulder pain, arm pain, back pain, hand pain, leg pain, foot pain Skin: No: Rash, Lesions, Jaundice, Bruising, Other Neurological: Weakness, Incoordination, Change in speech (repetitive), Confusion, Other (S/P fall); No: Numbness, Seizures Allergies: Coded Allergies: Hydromorphone (Verified Allergy, Unknown, 11/26/24) Medications Current Medications Medications Dose Ordered Sig/Rojelio Route Start Time Stop Time Status Last Admin Dose Admin Baclofen 10 mg HS PO 11/26/24 22:00 Gabapentin 100 mg QAM PO 11/27/24 07:00 Gabapentin 200 mg QPM PO 11/26/24 18:00 Tramadol HCl 50 mg BID PRN PO 11/26/24 12:45 Patient Own Medication 100 mg QAM PO 11/27/24 07:00 Patient Own Medication 200 mg QPM PO 11/26/24 18:00 Patient Own Medication 1 tab BID PO 11/26/24 22:00 UNV Patient Own Medication 1 tab HS PO 11/26/24 22:00 UNV Clonidine HCl 0.1 mg Q6HP PRN PO 11/26/24 13:15 Hydralazine HCl 10 mg Q6HP PRN IV 11/26/24 13:15 Exam Vital Signs Vital Signs Date Time Temp Pulse Resp B/P (MAP) Pulse Ox O2 Delivery O2 Flow Rate FiO2 11/26/24 12:39 71 18 190/74 (112) 11/26/24 09:44 Room Air* 0 21 11/26/24 09:00 97.8 94 97.8 General Appearance: Alert, Cooperative, mild distress, Other (Oriented x 2) HEENT: Atraumatic, PERRLA Respiratory: Clear to auscultation, Normal air movement Cardiovascular: Regular rate, Normal S1, Normal S2 Abdominal: Normal bowel sounds, Soft, No tenderness Extremities: No clubbing, No cyanosis, No edema, Normal pulses Skin: No rashes, No breakdown, No significant lesion Psych/Mental Status: Other (repetitive) Labs/Xrays Labs Test 11/26/24 10:53 11/26/24 09:53 Range/Units Urine Color Light-yellow Yellow Urine Clarity Clear Clear Urine pH 7.0 5.0-9.0 Urine Specific [place] 1.007 1.001-1.035 Urine Protein Negative Negative Urine Ketones Negative Negative Urine Blood Negative Negative /uL Urine Nitrite Negative Negative Urine Bilirubin Negative Negative Urine Urobilinogen Normal Negative mg/dL Urine Leukocyte Esterase Negative Negative /uL Urine RBC 2 0 - 4 /hpf Urine Microscopic WBC 1 0-5 /HPF Urine Squamous Epithelial Cells Few <5 /hpf Urine Bacteria Few H None Seen /hpf Urine Hyaline Casts Few 0 - 2 /lpf Urine Glucose Normal Normal mg/dL White Blood Count 5.4 4.4-10.8 10^3/uL Red Blood Count 4.08 4.0-5.20 10^6/uL Hemoglobin 12.1 L 12.2-16.2 g/dL Hematocrit 36.4 36.0-46.0 % Mean Corpuscular Volume 89.1 80.0-100.0 fL Mean Corpuscular Hemoglobin 29.6 28.0-32.0 pg Mean Corpuscular Hemoglobin Concent 33.2 32.0-36.0 g/dL Red Cell Distribution Width 16.3 H 11.8-14.3 % Platelet Count 227 140-450 10^3/uL Mean Platelet Volume 8.2 6.9-10.8 fL Neutrophils (%) (Auto) 73.6 37.0-80.0 % Lymphocytes (%) (Auto) 16.5 10.0-50.0 % Monocytes (%) (Auto) 6.8 0.0-12.0 % Eosinophils (%) (Auto) 2.3 0.0-7.0 % Basophils (%) (Auto) 0.8 0.0-2.0 % Neutrophils # (Auto) 4.0 1.6-8.6 10 ^3/uL Lymphocytes # (Auto) 0.9 0.4-5.4 10 ^3/uL Monocytes # (Auto) 0.4 0-1.3 10 ^3/uL Eosinophils # (Auto) 0.1 0-0.8 10 ^3/uL Basophils # (Auto) 0 0-0.2 10 ^3/uL Nucleated Red Blood Cells 0.0 % Sodium Level 142 136-145 mmol/L Potassium Level 4.2 3.5-5.1 mmol/L Chloride Level 102 98-107 mmol/L Carbon Dioxide Level 30 20-31 mmol/L Anion Gap 10 5-15 Blood Urea Nitrogen 17 9-23 mg/dL Creatinine 1.06 H 0.550-1.02 mg/dL Glomerular Filtration Rate Calc 51 >90 mL/min BUN/Creatinine Ratio 16.0 10.0-20.0 Serum Glucose 105 74-106 mg/dL Calcium Level 11.0 H 8.7-10.4 mg/dL Troponin I High Sensitivity 36 *H </=34 ng/L TECHNIQUE: 1 radiographic views of the pelvis were obtained. FINDINGS/IMPRESSION: There is no evidence of acute fracture or dislocation. 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 EXAM: CT STROKE CTH FINDINGS: There is no evidence of acute intracranial hemorrhage, extra-axial collection, mass effect, midline shift, herniation or hydrocephalus. The ventricles, sulci and cisterns are age appropriate. The knight-white differentiation is intact. Patchy periventricular and subcortical white matter hypoattenuation is nonspecific but may be related to small vessel ischemic disease. The visualized paranasal sinuses and mastoid air cells are clear. The surrounding soft tissues and osseous structures are unremarkable. IMPRESSION: No acute intracranial abnormality. Assessment/Plan Assessment/Plan Assessment: Hypertensive emergency, Metabolic encephalopathy, Hyperlipidemia, Anxiety, Depression, Plan: Admit to Tele, Neurology consult, ECHO, PRN Antihypertensives, Physical therapy evaluation, Home medications reconciled, Plan discussed with: Patient My Orders Orders - KORY WILLIAM Procedure Category Date Status Time Ct Head Cva CT 11/26/24 Resulted 12:36 Baclofen Tablet PHA 11/26/24 In Process (Liorisal Tablet) 22:00 Gabapentin Capsule PHA 11/27/24 In Process (Neurontin Capsule) 07:00 Gabapentin Capsule PHA 11/26/24 In Process (Neurontin Capsule) 18:00 Tramadol Hcl (Ultram) PHA 11/26/24 In Process 12:45 (Nf) Carbamazepine PHA 11/27/24 In Process (Carbamazepine Er) 07:00 (Nf) Carbamazepine PHA 11/26/24 In Process (Carbamazepine Er) 18:00 (Nf) Lisinopril PHA 11/26/24 Logged 22:00 (Nf) Rosuvastatin PHA 11/26/24 Logged Calcium (Crestor) 22:00 Clonidine Hcl Tablet PHA 11/26/24 In Process (Catapres Tablet) 13:15 Hydralazine Injection PHA 11/26/24 In Process (Apresoline Inject 13:15 Date of Service: Nov 26, 2024 Billing Provider: KORY WILLIAM Common Visit Codes: [id number] INP/OBS CARE (MOD) KORY WILLIAM Nov 26, 2024 13:52
[2024-11-26] MEDS: hydrALAZINE HCL 20 MG/ML VL IV PRN (15:44)
[2024-11-26] MEDS: GABAPENTIN 100 MG CAP PO SCH (17:36)
[2024-11-26 18:50] VITALS: BP 166/75; PULSE 88; RESP 17; TEMP 99.6; O2SAT 94
[2024-11-26 20:00] VITALS: PULSE 86
[2024-11-26 21:00] VITALS: BP 163/68; PULSE 88; RESP 18; TEMP 99.4; O2SAT 95
[2024-11-26] MEDS ORDERED: PATIENTS OWN MEDICATION (Lisinopril 1 TAB) PO SCH (22:00)
[2024-11-26] MEDS ORDERED: PATIENTS OWN MEDICATION (Rosuvastatin Calcium (Crestor) 1 TAB) PO SCH (22:00)
--- NOTE | 2024-11-26 22:04 | DVHSR ---
APPROVED REPORT EXAM: Two-dimensional and M-mode echocardiogram with Doppler and color Doppler. Blood Pressure: 190/74 mmHg INDICATION Hypertensive emergency RISK FACTORS Height: 5'4", Weight: 105 DIMENSIONS LVDd3.3 (3.8-5.7cm)LA (2D)4.1 (1.9-4.0cm)Aortic Root3.1 (2.0-3.7cm) LVDs2.2 (2.5-4.0cm)LA (MM) (1.9-4.0cm)Aortic Cusp Exc0.7 (1.5-2.0cm) EF (%) 60.0 (55-70%)Rt. Atrium4.0 (1.9-4.0cm)Asc. Aorta cm IVSd1.3 (0.7-1.1cm)RV (D) (1.8-2.4cm) PWd1.2 (0.7-1.1cm) Mitral Valve MitralMitral Stenosis E wave1.16m/sMV Mean GR.3mmHg A wave1.24m/sMV Peak GR.6mmHg E/A ratio0.92D MVAcm2 DECEL [id number] 1/2 Clbp13ks IVRTmsDop MVA4.00cm2 Aortic Valve Aortic ValveAortic Stenosis V10.91m/Shadi Mean GR.11mmHg V22.22m/Shadi Peak GR.20mmHg LVOT Diameter1.9 (1.8-2.4cm)Doppler AVA1.16cm2 2D AVA1.12cm2 Pulmonic Valve V21.06m/s Other Information Technically limited study due to body habitus, patient lying flat. Conclusion 1. MODERATE DEGREE LVH AND MODERATE DEGREE LV DIASTOLIC DYSFUNCTION 2. LV EF IS 65% AND IS NORMAL 3. SLIGHTLY DILATED LA 4. VERY HEAVILY CALCIFIED AORTIC LEAFLETS AORTIC VLAVE AREA IS 1.12 CM SQUARE IT IS MODERATELY SEVERE AORTIC STENOSIS 5. MODERATELY CALCIFIED MITRAL LEAFLETS MODERATE DEGREE MR NO EFFUSION NORMAL RV FUNCTION
[2024-11-26] MEDS: ATORVASTATIN 20 MG TAB PO SCH (22:08)
[2024-11-26] MEDS: BACLOFEN 10 MG TAB PO SCH (22:08)
[2024-11-27] VITALS (11 sets, daily range): BP systolic 131–183; BP diastolic 58–92; PULSE 83–97; RESP 16–20; TEMP 97.2–100; O2SAT 93–95
[2024-11-27] MEDS: HYDROcodone-ACET 5/325MG TAB PO PRN (01:14)
--- NOTE | 2024-11-27 06:30 | DVH ---
CLINICAL INDICATION: PAIN TECHNIQUE: XY R ANKLE 2 VIEW XRAY, XY R FOOT 2 VIEW XRAY Comparison: None FINDINGS/IMPRESSION: : Diffuse generalized osseous demineralization. Cortical irregularity of the lateral margin of the distal 5th metatarsal suggests acute to subacute f racture. Marked valgus angulation about all of the metatarsal phalangeal joints, measuring 61 degrees at the 1 st MTP joint, consistent with severe hallux valgus. Soft tissues are unremarkable. At sclerotic vascular calcifications.
[2024-11-27] MEDS: GABAPENTIN 100 MG CAP PO SCH (06:51)
[2024-11-27 08:55] LABS: Hematocrit 33.9 % (36.0-46.0); Hemoglobin 11.2 g/dL (12.2-16.2); Mean Corpuscular Hemoglobin 29.0 pg (28.0-32.0); Mean Corpuscular Volume 87.8 fL (80.0-100.0); Nucleated Red Blood Cells % 0.1 %
[2024-11-27 09:08] LABS: Alanine Aminotransferase 17 U/L (7-40); Albumin 3.9 g/dL (3.2-4.8); Anion Gap 10 (5-15); BUN/Creatinine Ratio 19.0 (10.0-20.0); Blood Urea Nitrogen 22 mg/dL (9-23); Carbon Dioxide 29 mmol/L (20-31); Chloride 102 mmol/L (98-107); Glucose 101 mg/dL (74-106); Potassium 4.0 mmol/L (3.5-5.1); Sodium 141 mmol/L (136-145); Total Protein 7.1 g/dL (5.7-8.2)
[2024-11-27 09:09] LABS: Bilirubin, Total 0.4 mg/dL (0.2-1.0)
[2024-11-27 09:13] LABS: Alkaline Phosphatase 144 U/L (46-116); Calcium 10.6 mg/dL (8.7-10.4)
--- NOTE | 2024-11-27 09:20 | DVHINCON2 ---
Date of service: Nov 27, [address] Law Reason for Consultation ALOC History of Present Illness Ms. Sanderson is a 89 years old female with a history of hypertension, dyslipidemia, GERD, depression, anxiety, lupus, lupus anticoagulant syndrome, DVT, diverticulitis. She came to the [facility] on 11/26/24 with a chief complaint of fall injury, pain, but he also has altered mental status.. A t that time, she is awake, oriented to person, place, the history is obtained from Cindi, her [id number] I saw her in 06/2012 for trigeminal neuralgia, on 10/31/2013 for TIA (MRI negative), 07/02/24 for trigeminal neuralgia It is not clear for how long, but the patient has had back pain for some time, about weakness, she was admitted to the [facility] for intense back pain, where she was also found to have UTI, in the hospital, she was had obvious mental status change/confusion, the patient was treated accordingly, and was discharged home, where her mental status gradually recovered. But unfortunately, the patient has had another fall when she was up in the night for bathroom, and she reported intense back pain. In the hospital, the patient has become confused Her daughter has noticed altered mental status when the patient had UTI previously She has a long history of trigeminal neuralgia, she is status post gamma knife treatment, the trigeminal neuralgia is under better control recently. She sees Dr. Roseline Olvera and according to her paperwork, she is on carbamazepine ER 100 mg a.m., 200 mg HS, gabapentin 100 mg a.m., 200 mg in the evening, baclofen 10 mg HS, aspirin 81 mg daily, rosuvastatin 20 mg daily, tramadol 50 mg b.i.d. p.r.n. for trigeminal neuralgia Talked to Cindi, her [id number] and her son Mike, [phone], Urinalysis, 11/26/2024: WBC: 1, urine leukocyte esterase: Negative WBC/HB/PLT/MCV, 11/27/2024: 5.4/11.2/239/87.8 BUN/CR, 11/26/2024: 17/1.6 GFR, 11/26/2024: 51 X-ray, pelvis, 11/26/2024: There is no evidence of acute fracture or dis location. 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 X-ray, right ankle, right foot, 11/26/2024: Diffuse generalized osseous demineralization. Cortical irregularity of the lateral margin of the distal 5th metatarsal suggests acute to subacute fracture. Marked valgus angulation about all of the metatarsal phalangeal joints, measuring 61 degrees at the 1st MTP brice int, consistent with severe hallux valgus. Soft tissues are unremarkable. At sclerotic vascular calcifications. CT C-spine, 07/02/2024: Multilevel moderate to severe degenerative changes of the cervical spine as detailed above. Grade 1 anterolisthesis of C3 on C4 and C4 on C5 of unknown chronicity which may be degenerative. Moderate right-sided neural foramina stenosis at C2-C3, severe bilateral neural foramina stenosis at C3-C4 and C4-C5 with moderate to severe bilateral neural foramina stenosis at C5-C6 and moderate bilateral neural foramina stenosis at C6-C7 from uncovertebral hypertrophy and facet osteoarthritis. Heterogeneous appearance of the thyroid gland with multiple thyroid nodules. Biapical emphysematous changes with scarring MRI brain, 10/31/13: 1. Atrophic and moderate to severe involutional changes. No acute intracranial processes. No acute ischemia. MRI head, 08/07/15: No acute intracranial abnormality or recent infarct. Severe chronic microvascular ischemic changes MRA brain, 10/31/13: Normal MR angiograms of the head without contrast. No aneurysms or stenoses Past Medical History Hypertension, dyslipidemia, GERD, depression, anxiety, lupus, lupus anticoagulant syndrome, DVT, diverticulitis, Past Surgical History Breast cancer resection, colostomy, hysterectomy, Gamma knife, micrograms vascular decompression for trigeminal neuralgia Family History: Cerebrovascular accident (CVA) G8 FATHER FH: epilepsy 19 CHILD FH: heart attack G8 FATHER FH: lung cancer G8 BROTHER FH: obesity 19 CHILD FH: pancreatic cancer uncle uncle grandma FH: stomach cancer FH: stomach ulcer G8 MOTHER FH: stroke G8 SISTER Hypercholesterolemia G8 MOTHER Stroke Family History Dyslipidemia, coronary artery disease, heart attack, stroke, seizure, cancers Social History She doesn't smoke, no history of alcohol recreational substances abuse Allergies: Coded Allergies: Hydromorphone (Verified Allergy, Unknown, 11/26/24) Home Meds Reported Medications Aspirin (Aspir-81) 81 Mg Tab, 1 TAB PO DAILY, #30 TAB 5 Refills 11/26/24 Carbamazepine (Carbamazepine ER) 100 Mg Tab, 200 MG PO QPM, TAB 07/02/24 Carbamazepine (Carbamazepine ER) 100 Mg Tab, 100 MG PO QAM, TAB 07/02/24 Amlodipine Besylate (Amlodipine Besylate) 5 Mg Tab, 5 MG PO HS 07/02/24 Rosuvastatin Calcium (Crestor) 20 Mg Tab, 1 TAB PO HS 07/02/24 Tramadol Hcl (Tramadol Hcl) 50 Mg Tab, 50 MG PO BID PRN for TRIGEMINAL NEURALGIA for 30 Days, #60 04/25/24 Baclofen (Baclofen) 10 Mg Tab, 1 TAB PO HS for 30 Days, #30 04/25/24 Ibuprofen (Ibuprofen) 600 Mg Tab, 1 TAB PO BID PRN for 30 Days, #60 0 Refills 04/25/24 Hydrocodone-Acetaminophen (Hydrocodone Bitartrate/AC 5-325 mg) 1 Tab Tab, 1 TAB PO Q6HR PRN for 30 Days, #120 04/25/24 Gabapentin (Gabapentin) 100 Mg Cap, 200 MG PO QPM for 30 Days, #90 04/24/24 Gabapentin (Gabapentin) 100 Mg Cap, 100 MG PO QAM for 30 Days, #90 04/24/24 Hydroxychloroquine Sulfate (PLAQUENIL) 200 Mg Tab, 1 TAB PO BID for 30 Days, #60 12/29/20 Lisinopril (Lisinopril) 10 Mg Tab, 1 TAB PO BID 02/20/18 Current Medications Current Medications Medications (Trade) Dose Ordered Sig/Rojelio Route PRN Reason Start Time Stop Time Status Last Admin Baclofen (Liorisal Tablet) 10 mg HS PO 11/26/24 22:00 11/26/24 22:08 Gabapentin (Neurontin Capsule) 100 mg QAM PO 11/27/24 07:00 11/27/24 06:51 Gabapentin (Neurontin Capsule) 200 mg QPM PO 11/26/24 18:00 11/26/24 17:36 Tramadol HCl (Ultram) 50 mg BID PRN PO TRIGEMINAL NEURALGIA 11/26/24 12:45 Patient Own Medication 100 mg QAM PO 11/27/24 07:00 Patient Own Medication 200 mg QPM PO 11/26/24 18:00 Patient Own Medication 1 tab BID PO 11/26/24 22:00 UNV Patient Own Medication 1 tab HS PO 11/26/24 22:00 UNV Clonidine HCl (Catapres Tablet) 0.1 mg Q6HP PRN PO SBP>160 11/26/24 13:15 11/26/24 14:29 Hydralazine HCl (Apresoline Injection) 10 mg Q6HP PRN IV SBP>150 11/26/24 13:15 11/26/24 22:12 Lisinopril (Zestril Tablet) 10 mg DAILY PO 11/27/24 10:00 Atorvastatin Calcium (Lipitor) 40 mg HS PO 11/26/24 22:00 11/26/24 22:08 Acetaminophen/ Hydrocodone Bitart (Rumsey 5/325MG Tab) 1 tab Q4HP PRN PO MODERATE PAIN (4-6 PAIN SCALE) 11/26/24 13:45 11/27/24 01:14 Ondansetron HCl (Zofran) 4 mg Q4HP PRN IV NAUSEA / VOMITING 11/26/24 13:45 Docusate Sodium (Colace Capsule) 100 mg BIDPRN PRN PO FOR CONSTIPATION 11/26/24 13:45 Enoxaparin Sodium (Lovenox) 30 mg DAILY SC 11/27/24 10:00 Acetaminophen (Tylenol Tablet) 650 mg Q6HP PRN PO PAIN SCALE 1-3 OR TEMP>100.4 11/26/24 13:45 Nitroglycerin (Ntrostat Sublingual) 0.4 mg Q5MINP PRN SL FOR CHEST PAIN 11/26/24 13:45 Morphine Sulfate 2 mg Q30M PRN IV FOR CHEST PAIN 11/26/24 13:45 Review of Systems Unremarkable other than described above Vital Signs Vital Signs Date Time Temp Pulse Resp B/P (MAP) Pulse Ox O2 Delivery O2 Flow Rate FiO2 11/27/24 07:57 18 Room Air* 0 21 11/27/24 05:00 97.2 89 154/76 (102) 94 97.2 Physical Exam GENERAL EXAM: General: the patient is well developed and nourished. She is in severe pain. HEENT: Normocephalic, neck is supple, no carotid bruits. No mass. RESPIRATORY: Normal respiratory effort with symmetrical lung expansion. Lungs clear to auscultation. CARDIOVASCULAR: Regular rate and rhythm with no murmurs. S1, S2. ABDOMEN: Soft, nontender, normal bowel sound NEUROLOGICAL: MENTAL STATUS: Awake and alert. Oriented to person, place, SPEECH, LANGUAGE, HIGHER CORTICAL FUNCTION: no aphasia or dysathria. CRANIAL NERVES: #2: Intact visual montes to confrontation. The optic discs were sharp. #3,4,6: Pupils are equal, round and reactive. EOMs full and conjugate. No nystagmus. #5: Facial sensation intact in all three divisions bilaterally. Mandibular strength intact. #7: Facial muscles symmetrical and strength intact. #8: Hearing grossly normal to voice. #9,10: Uvula and soft palate rise in the midline. Swallow and voice are normal. #11: Trapezius and sternomastoid strength intact bilaterally. #12: Tongue midline. No fasciculations or atrophy. SENSATION: Sensation to touch and pinprick is normal. MOTOR: Normal tone in the upper and lower extremity. Normal muscle bulk. No fasciculations. No abnormal movements or posturing. Moves all her extremities, mouth strong feels 4/5 REFLEXES: Deep tendon reflexes symmetrical. No pathological reflexes. CEREBELLAR/COORDINATION: Finger to nose are normal bilaterally. GAIT/STATION: deferred. Labs/Diagnostic Data Labs Test 11/27/24 08:40 11/26/24 10:53 11/26/24 09:53 Range/Units White Blood Count 5.4 4.4-10.8 10^3/uL Red Blood Count 3.86 L 4.0-5.20 10^6/uL Hemoglobin 11.2 L 12.2-16.2 g/dL Hematocrit 33.9 L 36.0-46.0 % Mean Corpuscular Volume 87.8 80.0-100.0 fL Mean Corpuscular Hemoglobin 29.0 28.0-32.0 pg Mean Corpuscular Hemoglobin Concent 33.0 32.0-36.0 g/dL Red Cell Distribution Width 16.7 H 11.8-14.3 % Platelet Count 239 140-450 10^3/uL Mean Platelet Volume 7.9 6.9-10.8 fL Neutrophils (%) (Auto) 71.2 37.0-80.0 % Lymphocytes (%) (Auto) 17.9 10.0-50.0 % Monocytes (%) (Auto) 9.8 0.0-12.0 % Eosinophils (%) (Auto) 0.5 0.0-7.0 % Basophils (%) (Auto) 0.6 0.0-2.0 % Neutrophils # (Auto) 3.8 1.6-8.6 10 ^3/uL Lymphocytes # (Auto) 1.0 0.4-5.4 10 ^3/uL Monocytes # (Auto) 0.5 0-1.3 10 ^3/uL Eosinophils # (Auto) 0 0-0.8 10 ^3/uL Basophils # (Auto) 0 0-0.2 10 ^3/uL Nucleated Red Blood Cells 0.1 % Urine Color Light-yellow Yellow Urine Clarity Clear Clear Urine pH 7.0 5.0-9.0 Urine Specific [place] 1.007 1.001-1.035 Urine Protein Negative Negative Urine Ketones Negative Negative Urine Blood Negative Negative /uL Urine Nitrite Negative Negative Urine Bilirubin Negative Negative Urine Urobilinogen Normal Negative mg/dL Urine Leukocyte Esterase Negative Negative /uL Urine RBC 2 0 - 4 /hpf Urine Microscopic WBC 1 0-5 /HPF Urine Squamous Epithelial Cells Few <5 /hpf Urine Bacteria Few H None Seen /hpf Urine Hyaline Casts Few 0 - 2 /lpf Urine Glucose Normal Normal mg/dL Troponin I High Sensitivity 36 *H </=34 ng/L Assessment Altered mental status, likely metabolic encephalopathy Trigeminal neuralgia s/p surgeries Plan/Recommendation Monitoring, Supportive treatment Tegretol ER, 100 mg in the morning, 200 mg evening Neurontin 100 mg in the morning, 200mg in the evening Baclofen 10 mg daily Room bright during the daytime Up to chair Physical therapy More recommendation per clinical course Prognosis: Poor This medical document was created using an electronic medical record system with [employer] dictation system. Although this document has been carefully reviewed, there may still be some phonetic and typographical errors. These areas are purely typographical due to imperfections of the software programs, and do not reflect any compromise in the patient's medical care. Plan discussed with: Daughter, Other FRANCO CONSTANTINO MD Nov 27, 2024 09:20
[2024-11-27] MEDS: ENOXAPARIN SOD 30 MG/0.3 ML SYRINGE SC SCH (09:48)
[2024-11-27] MEDS ORDERED: LISINOPRIL 5 MG TAB PO SCH (10:00)
[2024-11-27] MEDS: SODIUM CHLORIDE 0.9% 1,000 ML IV SCH (17:31)
--- NOTE | 2024-11-27 17:57 | DVHPNRES ---
Progress Note Date Seen: Nov 27, 2024 Resident Creating Document: KITTY FREEMAN RESIDENT Has the PT tested + for MRSA If YES, has PT been informed?: No Medical Necessity Reason Pt with a Central, PICC or Fol: No Subjective Review of Systems This is a 89-year-old female with past medical history of hypertension, hyperlipidemia, anxiety, and depression. Patient resides at [facility], is usually A&O x 3, can do most of her own care, and administer her medications to her self. This morning the facility found her to be altered, repetitive, and had fallen. The patient was brought to the ED hospital for a fall with injury and confusion. During ED evaluation BP was 183/76 mmHg HR 97 O2sat 97%. Right foot Xray showed: 5th metatarsal fracture. The patient was seen and examinated at bedside. Today, patient is alert but confused. BP 160/92 mmHg. Patient will continue with Hydralazine 10 mg IV, amlodipine 10 mg PO. Clonidine was discontinuated. Podiatry and neurology consult have been requested. We will follow up this patient. ROS: Constitutional: No Fever, Chills, Sweats, Weakness, Malaise, Other Eyes: No Pain, Vision change, Conjunctivae inflammation, Eyelid inflammation, Other, Redness ENT: No Ear pain, Ear discharge, Nose pain, Nose discharge, Nose congestion, Mouth pain, Mouth swelling, Throat pain, Throat swelling, Other Respiratory: No Cough, Dry, Shortness of breath, SOB with excertion, Wheezing, Hemoptysis, Pleuritic Pain, Sputum, Wheezing, Other Cardiovascular: No Chest Pain, Palpitations, Orthopnea, Paroxysmal Noc. Dyspnea, Edema, Lt Headedness, Other Gastrointestinal: No Nausea, Vomiting, Abdominal Pain, Diarrhea, Constipation, Melena, Hematochezia, Other Genitourinary: No Dysuria, No Frequency, No Incontinence, No Hematuria, No Retention, No Other Musculoskeletal: Right foot pain. Skin: Bruises on left upper arm. Neurological: Weakness, Incoordination, Change in speech (repetitive), C onfusion, Other (S/P fall); No: Numbness, Seizures Allergies: Hydromorphone (Verified Allergy, Unknown, 11/26/24) Objective vital signs Vital Sign Date Time Temp Pulse Resp B/P (MAP) Pulse Ox O2 Delivery O2 Flow Rate FiO2 11/27/24 14:21 140/62 (88) 11/27/24 12:30 97.2 92 18 94 97.2 11/27/24 07:57 Room Air* 0 21 Total Intake and Output 11/26/24 11/26/24 11/27/24 15:00 23:00 07:00 Intake Total 600 ml Output Total 900 ml Balance -300 ml medications Current Medications Medications Dose Ordered Sig/Rojelio Route Start Time Stop Time Status Last Admin Dose Admin Baclofen 10 mg HS PO 11/26/24 22:00 11/26/24 22:08 10 MG Gabapentin 100 mg QAM PO 11/27/24 07:00 11/27/24 06:51 100 MG Gabapentin 200 mg QPM PO 11/26/24 18:00 11/26/24 17:36 200 MG Tramadol HCl 50 mg BID PRN PO 11/26/24 12:45 Patient Own Medication 100 mg QAM PO 11/27/24 07:00 Patient Own Medication 200 mg QPM PO 11/26/24 18:00 Patient Own Medication 1 tab BID PO 11/26/24 22:00 UNV Patient Own Medication 1 tab HS PO 11/26/24 22:00 UNV Atorvastatin Calcium 40 mg HS PO 11/26/24 22:00 11/26/24 22:08 40 MG Acetaminophen/ Hydrocodone Bitart 1 tab Q4HP PRN PO 11/26/24 13:45 11/27/24 13:30 1 TAB Ondansetron HCl 4 mg Q4HP PRN IV 11/26/24 13:45 Docusate Sodium 100 mg BIDPRN PRN PO 11/26/24 13:45 Enoxaparin Sodium 30 mg DAILY SC 11/27/24 10:00 11/27/24 09:48 30 MG Acetaminophen 650 mg Q6HP PRN PO 11/26/24 13:45 Nitroglycerin 0.4 mg Q5MINP PRN SL 11/26/24 13:45 Morphine Sulfate 2 mg Q30M PRN IV 11/26/24 13:45 Amlodipine Besylate 10 mg DAILY PO 11/27/24 10:00 11/27/24 09:50 10 MG Hydralazine HCl 10 mg Q6HP PRN IV 11/27/24 15:00 Sodium Chloride 1,000 ml @ 75 mls/hr [id number] IV 11/27/24 15:00 Examination General Appearance: Alert, Cooperative, mild distress, Other (Oriented x 2), confused. HEENT: Atraumatic, PERRLA Respiratory: Clear to auscultation, Normal air movement Cardiovascular: Regular rate, Normal S1, Normal S2 Abdominal: Normal bowel sounds, Soft, No tenderness Extremities: Right food immobilized. Bruise on Right foot. Skin: No rashes, No breakdown, No significant lesion Psych/Mental Status: Other (repetitive) laboratory and microbiology Laboratory Tests 11/27/24 08:40 Test 11/27/24 08:40 Range/Units Serum Glucose 101 74-106 mg/dL Problem List/Assessment/Plan Problem List/Assessment/Plan Assessment Hypertensive Emergency Metabolic Encephalopaty 5th Metatarsal Fracture Possible URI Dehydratation Plan: Hypertensive Emergency High troponins 36 Continue hypertensive drugs Hydralazine 10 mg IV, amlodipine 10 mg Metabolic Encephalopaty Neuro consult (pending) 5th Metatarsal Fracture Podiatry consult requested Pain medications: Hydrocodone/Acetaminophen 5/325mg Possible URI Chest X-ray (Pending) Blood cultures (Pending) Dehydratation Low urine output SSN Plan discussed with: Patient My Orders My Orders Orders - KITTY FREEMAN RESIDENT Procedure Category Date Status Time Complete Blood Count LAB 11/28/24 Verified 04:00 Basic Metabolic Panel LAB 11/28/24 Verified 04:00 Hydralazine Injection PHA 11/27/24 In Process (Apresoline Inject 15:00 Bladder Scan ORDERS 11/27/24 Transmitted 14:49 Blood Culture CHRIS 11/27/24 In Process 14:49 Sodium Chloride 0.9% PHA 11/27/24 In Process 15:00 * Orthopedic Consult CONS 11/27/24 Transmitted 14:49 KITTY FREEMAN RESIDENT Nov 27, 2024 17:57
[2024-11-27] MEDS: SODIUM CHLORIDE 0.9% 500 ML IV ONE (19:47)
--- NOTE | 2024-11-27 19:57 | DVH ---
EXAM: XY CHEST XRAY 1 VIEW TECHNIQUE: Single frontal chest radiograph CLINICAL HISTORY: eval pulm parenchyma COMPARISON: XY CHEST XRAY 1 VIEW on DOS: 04/30/24, XY CHEST PORTABLE on DOS: 04/23/24, XY CHEST XRAY 1 VIEW on DOS: 01/31/24 Findings/Impression: Frontal chest radiograph demonstrates no acute osseous or superficial soft tissue abnormalities. The trachea is midline. The cardiac silhouette and mediastinum are within normal limits. No pneumothorax, pleural effusions, or consolidations.
[2024-11-27] MEDS: hydrALAZINE HCL 20 MG/ML VL IV PRN (21:14)
[2024-11-27] MEDS: MORPHINE SULFATE INJ 2 MG/ml SYRG IV PRN (23:41)
[2024-11-28] VITALS (10 sets, daily range): BP systolic 137–163; BP diastolic 57–71; PULSE 75–90; RESP 17–21; TEMP 97.2–99.9; O2SAT 90–97
[2024-11-28] MEDS: ONDANSETRON HCL 4 MG/2 ML VIAL IV PRN (04:56)
[2024-11-28 06:55] LABS: Hematocrit 33.8 % (36.0-46.0); Hemoglobin 11.5 g/dL (12.2-16.2); Mean Corpuscular Hemoglobin 30.1 pg (28.0-32.0); Mean Corpuscular Volume 88.6 fL (80.0-100.0); Nucleated Red Blood Cells % 0.1 %
[2024-11-28 06:58] LABS: Chloride 101 mmol/L (98-107); Potassium 4.0 mmol/L (3.5-5.1); Sodium 138 mmol/L (136-145)
[2024-11-28 06:59] LABS: Anion Gap 10 (5-15); Calcium 10.2 mg/dL (8.7-10.4); Carbon Dioxide 27 mmol/L (20-31)
[2024-11-28 07:04] LABS: BUN/Creatinine Ratio 21.7 (10.0-20.0); Blood Urea Nitrogen 23 mg/dL (9-23)
[2024-11-28 07:05] LABS: Glucose 117 mg/dL (74-106)
[2024-11-28] MEDS: Ensure HIGH Protein Chocolate 8oz Bottle PO SCH (08:19)
[2024-11-28] MEDS: NAPROXEN 500 MG TAB PO PRN (08:31)
[2024-11-28] MEDS: AZITHROMYCIN 500MG/ 250ML 250 ML IV SCH (09:45)
--- NOTE | 2024-11-28 09:49 | DVHPNRES ---
Progress Note Date Seen: Nov 28, 2024 Resident Creating Document: KITTY FREEMAN RESIDENT Has the PT tested + for MRSA If YES, has PT been informed?: No Medical Necessity Reason Pt with a Central, PICC or Fol: No Subjective Review of Systems This is a 89-year-old female with past medical history of hypertension, hyperlipidemia, anxiety, and depression. Patient resides at [facility], is usually A&O x 3, can do most of her own care, and administer her medications to her self. This morning the facility found her to be altered, repetitive, and had fallen. The patient was brought to the ED hospital for a fall with injury and confusion. During ED evaluation BP was 183/76 mmHg HR 97 O2sat 97%. Right foot Xray showed: 5th metatarsal fracture. 11/28/24. The patient was seen and examinated at bedside. Today, patient is alert, Ox3. BP has [id number]/67 mmHg. Telemetry has been discontinuated. Patient will continue with Hydralazine 10 mg IV, amlodipine 10 mg PO. Ceftriaxone has started for Sepsis possible related to atypical pneumonia. Neurology saw the patient yesterday, no changes on plan. Podiatry consult have been requested. We will follow up this patient. ROS: Constitutional: No Fever, Chills, Sweats, Weakness, Malaise, Other Eyes: No Pain, Vision change, Conjunctivae inflammation, Eyelid inflammation, Other, Redness ENT: No Ear pain, Ear discharge, Nose pain, Nose discharge, Nose congestion, Mouth pain, Mouth swelling, Throat pain, Throat swelling, Other Respiratory: No Cough, Dry, Shortness of breath, SOB with excertion, Wheezing, Hemoptysis, Pleuritic Pain, Sputum, Wheezing, Other Cardiovascular: No Chest Pain, Palpitations, Orthopnea, Paroxysmal Noc. Dyspnea, Edema, Lt Headedness, Other Gastrointestinal: No Nausea, Vomiting, Abdominal Pain, Diarrhea, Constipation, Melena, Hematochezia, Other Genitourinary: No Dysuria, No Frequency, No Incontinence, No Hematuria, No Retention, No Other Musculoskeletal: Right foot pain. Skin: Bruises on left upper arm. Neurological: Weakness, Incoordination, Change in speech (repetitive), C onfusion, Other (S/P fall); No: Numbness, Seizures Allergies: Hydromorphone (Verified Allergy, Unknown, 11/26/24) Objective vital signs Vital Sign Date Time Temp Pulse Resp B/P (MAP) Pulse Ox O2 Delivery O2 Flow Rate FiO2 11/28/24 08:08 18 Room Air* 0 21 11/28/24 06:29 86 147/67 (93) 11/28/24 05:00 98.7 94 98.7 Total Intake and Output 11/27/24 11/27/24 11/28/24 15:00 23:00 07:00 Intake Total 850 ml 870 ml Output Total 150 ml 250 ml Balance 700 ml 620 ml medications Current Medications Medications Dose Ordered Sig/Rojelio Route Start Time Stop Time Status Last Admin Dose Admin Baclofen 10 mg HS PO 11/26/24 22:00 11/27/24 21:13 10 MG Gabapentin 100 mg QAM PO 11/27/24 07:00 11/28/24 06:23 100 MG Gabapentin 200 mg QPM PO 11/26/24 18:00 11/27/24 17:31 200 MG Tramadol HCl 50 mg BID PRN PO 11/26/24 12:45 Patient Own Medication 100 mg QAM PO 11/27/24 07:00 Patient Own Medication 200 mg QPM PO 11/26/24 18:00 Patient Own Medication 1 tab BID PO 11/26/24 22:00 UNV Patient Own Medication 1 tab HS PO 11/26/24 22:00 UNV Atorvastatin Calcium 40 mg HS PO 11/26/24 22:00 11/27/24 21:14 40 MG Acetaminophen/ Hydrocodone Bitart 1 tab Q4HP PRN PO 11/26/24 13:45 Hold 11/28/24 02:38 1 TAB Ondansetron HCl 4 mg Q4HP PRN IV 11/26/24 13:45 11/28/24 04:56 4 MG Docusate Sodium 100 mg BIDPRN PRN PO 11/26/24 13:45 Enoxaparin Sodium 30 mg DAILY SC 11/27/24 10:00 11/27/24 09:48 30 MG Acetaminophen 650 mg Q6HP PRN PO 11/26/24 13:45 Nitroglycerin 0.4 mg Q5MINP PRN SL 11/26/24 13:45 Morphine Sulfate 2 mg Q30M PRN IV 11/26/24 13:45 Amlodipine Besylate 10 mg DAILY PO 11/27/24 10:00 11/27/24 09:50 10 MG Hydralazine HCl 10 mg Q6HP PRN IV 11/27/24 15:00 11/28/24 03:03 10 MG Sodium Chloride 1,000 ml @ 75 mls/hr [id number] IV 11/27/24 15:00 11/28/24 00:59 75 MLS/HR Enteral Nutritional Formula 240 ml BIDWM PO 11/28/24 08:00 11/28/24 08:19 240 ML Morphine Sulfate 1 mg Q6HP PRN IV 11/27/24 23:15 11/28/24 04:52 1 MG Azithromycin 250 ml @ 125 mls/hr DAILY IV 11/28/24 10:00 Naproxen 500 mg Q12HP PRN PO 11/28/24 07:45 11/28/24 08:31 500 MG Examination Examination General Appearance: Alert, Cooperative, mild distress, Other (Oriented x 2). HEENT: Atraumatic, PERRLA Respiratory: Clear to auscultation, Normal air movement Cardiovascular: Regular rate, Normal S1, Normal S2 Abdominal: Normal bowel sounds, Soft, No tenderness Extremities: Right food immobilized. Bruise on Right foot. Skin: No rashes, No breakdown, No significant lesion Psych/Mental Status: Oriented laboratory and microbiology Laboratory Tests 11/28/24 05:27 Test 11/28/24 05:27 Range/Units Serum Glucose 117 H 74-106 mg/dL Problem List/Assessment/Plan Problem List/Assessment/Plan Assessment Hypertensive Emergency Metabolic Encephalopaty 5th Metatarsal Fracture Possible URI Dehydratation Sepsis likely due to atypical pneumonia Plan: Hypertensive Emergency High troponins 36 Continue hypertensive drugs Hydralazine 10 mg IV, amlodipine 10 mg, Carvedilol 12.5 mg Metabolic Encephalopaty Neuro consult (done) level of consiousness improved 5th Metatarsal Fracture Podiatry consult requested Pain medications: Hydrocodone/Acetaminophen 5/325mg Naproxeno 500 mg PO Sepsis likely due to atypical pneumonia Ceftriaxona 2 gr Doxyciclin 100mg Dehydratation Low urine output continue SSN 75ml/hr Plan discussed with: Patient My Orders My Orders Orders - KITTY FREEMAN RESIDENT Procedure Category Date Status Time Hydralazine Injection PHA 11/27/24 In Process (Apresoline Inject 15:00 Bladder Scan ORDERS 11/27/24 Transmitted 14:49 Blood Culture CHRIS 11/27/24 In Process 14:49 Sodium Chloride 0.9% PHA 11/27/24 In Process 15:00 Naproxen Tablet PHA 11/28/24 In Process (Naprosyn Tablet) 07:45 KITTY FREEMAN RESIDENT Nov 28, 2024 09:49
--- NOTE | 2024-11-28 11:00 | DVHPN2 ---
Progress Note - Dictate Date Seen: Nov 28, 2024 Has the PT tested + for MRSA If YES, has PT been informed?: No Medical Necessity Reason Pt with a Central, PICC or Fol: No Subjective Ms. Sanderson is a 89 years old female with a history of hypertension, dyslipidemia, GERD, depression, anxiety, lupus, lupus anticoagulant syndrome, DVT, diverticulitis. She came to the [facility] on 11/26/24 with a chief complaint of fall injury, pain, but he also has altered mental status.. I saw her in 06/2012 for trigeminal neuralgia, on 10/31/2013 for TIA (MRI negative), 07/02/24 for trigeminal neuralgia I have seen and examined the patient, I have discussed with her nurse, and talked to her sitter. Mentally she is better today, oriented to person, place, she knows year, but she reports intense pains in the right foot, he looks nervous, touching the right foot and sometimes other parts of her body is perceived as painful stimuli Overall looks better than yesterday Urinalysis, 11/26/2024: WBC: 1, urine leukocyte esterase: Negative WBC/HB/PLT/MCV, 11/27/2024: 5.4/11.2/239/87.8 BUN/CR, 11/26/2024: 17/1.6 GFR, 11/26/2024: 51 X-ray, pelvis, 11/26/2024: There is no evidence of acute fracture or dislocation. 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 X-ray, right ankle, right foot, 11/26/2024: Diffuse generalized osseous demineralization. Cortical irregularity of the lateral margin of the distal 5th metatarsal suggests acute to subacute fracture. Marked valgus angulation about all of the metatarsal phalangeal joints, measuring 61 degrees at the 1st MTP joint, consistent with severe hallux valgus. Soft tissues are unremarkable. At sclerotic vascular calcifications. CT C-spine, 07/02/2024: Multilevel moderate to severe degenerative changes of the cervical spine as detailed above. Grade 1 anterolisthesis of C3 on C4 and C4 on C5 of unknown chronicity which may be degenerative. Moderate right-sided neural foramina stenosis at C2-C3, severe bilateral neural foramina stenosis at C3-C4 and C4-C5 with moderate to severe bilateral neural foramina stenosis at C5-C6 and moderate bilateral neural foramina stenosis at C6-C7 from uncovertebral hypertrophy and facet osteoarthritis. Heterogeneous appearance of the thyroid gland with multiple thyroid nodules. Biapical emphysematous changes with scarring MRI brain, 10/31/13: 1. Atrophic and moderate to severe involutional changes. No acute intracranial processes. No acute ischemia. MRI head, 08/07/15: No acute intracranial abnormality or recent infarct. Severe chronic microvascular ischemic changes MRA brain, 10/31/13: Normal MR angiograms of the head without contrast. No aneurysms or stenoses vital signs Vital Sign Date Time Temp Pulse Resp B/P (MAP) Pulse Ox O2 Delivery O2 Flow Rate FiO2 11/28/24 10:08 137/57 11/28/24 08:54 99.9 86 21 92 99.9 11/28/24 08:08 Room Air* 0 21 Total Intake and Output 11/27/24 11/27/24 11/28/24 15:00 23:00 07:00 Intake Total 850 ml 870 ml Output Total 150 ml 250 ml Balance 700 ml 620 ml medications Current Medications Medications Dose Ordered Sig/Rojelio Route Start Time Stop Time Status Last Admin Dose Admin Baclofen 10 mg HS PO 11/26/24 22:00 11/27/24 21:13 10 MG Gabapentin 100 mg QAM PO 11/27/24 07:00 11/28/24 06:23 100 MG Gabapentin 200 mg QPM PO 11/26/24 18:00 11/27/24 17:31 200 MG Tramadol HCl 50 mg BID PRN PO 11/26/24 12:45 Patient Own Medication 100 mg QAM PO 11/27/24 07:00 Patient Own Medication 200 mg QPM PO 11/26/24 18:00 Patient Own Medication 1 tab BID PO 11/26/24 22:00 UNV Patient Own Medication 1 tab HS PO 11/26/24 22:00 UNV Atorvastatin Calcium 40 mg HS PO 11/26/24 22:00 11/27/24 21:14 40 MG Acetaminophen/ Hydrocodone Bitart 1 tab Q4HP PRN PO 11/26/24 13:45 Hold 11/28/24 02:38 1 TAB Ondansetron HCl 4 mg Q4HP PRN IV 11/26/24 13:45 11/28/24 04:56 4 MG Docusate Sodium 100 mg BIDPRN PRN PO 11/26/24 13:45 Enoxaparin Sodium 30 mg DAILY SC 11/27/24 10:00 11/28/24 09:45 30 MG Acetaminophen 650 mg Q6HP PRN PO 11/26/24 13:45 Nitroglycerin 0.4 mg Q5MINP PRN SL 11/26/24 13:45 Morphine Sulfate 2 mg Q30M PRN IV 11/26/24 13:45 Amlodipine Besylate 10 mg DAILY PO 11/27/24 10:00 11/28/24 10:08 10 MG Hydralazine HCl 10 mg Q6HP PRN IV 11/27/24 15:00 11/28/24 03:03 10 MG Sodium Chloride 1,000 ml @ 75 mls/hr [id number] IV 11/27/24 15:00 11/28/24 00:59 75 MLS/HR Enteral Nutritional Formula 240 ml BIDWM PO 11/28/24 08:00 11/28/24 08:19 240 ML Morphine Sulfate 1 mg Q6HP PRN IV 11/27/24 23:15 11/28/24 04:52 1 MG Azithromycin 250 ml @ 125 mls/hr DAILY IV 11/28/24 10:00 11/28/24 09:45 125 MLS/HR Naproxen 500 mg Q12HP PRN PO 11/28/24 07:45 11/28/24 08:31 500 MG objective General: the patient is well developed and nourished. MENTAL STATUS: Subjective SPEECH, LANGUAGE, HIGHER CORTICAL FUNCTION: no aphasia or dysathria. CRANIAL NERVES: Pupils are equal, round and reactive. EOMs full and conjugate. No nystagmus.Facial sensation intact in all three divisions bilaterally. Mandibular strength intact. Facial muscles symmetrical and strength intact. SENSATION: Sensation to touch and pinprick is normal. MOTOR: Normal tone in the upper and lower extremity. Normal muscle bulk. No fasciculations. No abnormal movements or posturing. Moves all her extremities, mouth strong feels 4/5 REFLEXES: Deep tendon reflexes symmetrical. No pathological reflexes. CEREBELLAR/COORDINATION: Finger to nose are normal bilaterally. GAIT/STATION: deferred laboratory and microbiology Laboratory Tests 11/28/24 05:27 Test 11/28/24 05:27 Range/Units Serum Glucose 117 H 74-106 mg/dL Problem List Altered mental status, likely metabolic/hypertensive encephalopathy Trigeminal neuralgia s/p surgeries Right foot pain Right 5th metatarsal fracture Assessment/Plan Monitoring, Supportive treatment Tegretol ER, 100 mg in the morning, 200 mg evening Neurontin 100 mg in the morning, 200mg in the evening Baclofen 10 mg daily Room bright during the daytime Up to chair Physical therapy Consult podiatry surgeon More recommendation per clinical course This medical document was created using an electronic medical record system with [employer] dictation system. Although this document has been carefully reviewed, there may still be some phonetic and typographical errors. These areas are purely typographical due to imperfections of the software programs, and do not reflect any compromise in the patient's medical care. Prognosis poor Plan discussed with: Other Total Time (mins): 35 FRANCO CONSTANTINO MD Nov 28, 2024 11:00
--- NOTE | 2024-11-28 12:17 | DVHINCON2 ---
Date of service: Nov 28, 2024 Referring Physician Hospitalist Reason for Consultation right foot pain History of Present Illness Humera Sanderson is an 89-year-old female with past medical history of hypertension, hyperlipidemia, anxiety, PVD, stroke, and depression, who was brought to the hospital for a fall with injury. Patient resides at [facility], is usually A&O x 4, can do most of her own care, and administer her medications to her self. Morning of admission the facility found her to be altered, repetitive, and had fallen. Patient is reportedly an independent ambulator. Patient does have a history of chronic pain due to trigeminal neuralgia for which she is on chronic pain management. History today was obtained from the patient and the chart. Patient was alert though it was difficult to elicit a good history due to an element of confusion. Past Surgical History: Appendectomy, Cholecystectomy, Hysterectomy, Hernia Repair, Other (Colostomy), Tonsillectomy Smoke: No ALCOHOL: none Drugs: None Lives: Custodial Family History: Cerebrovascular accident (CVA) G8 FATHER FH: epilepsy 19 CHILD FH: heart attack G8 FATHER FH: lung cancer G8 BROTHER FH: obesity 19 CHILD FH: pancreatic cancer uncle uncle grandma FH: stomach cancer FH: stomach ulcer G8 MOTHER FH: stroke G8 SISTER Hypercholesterolemia G8 MOTHER Stroke Allergies: Coded Allergies: Hydromorphone (Verified Allergy, Unknown, 11/26/24) Home Meds Reported Medications Aspirin (Aspir-81) 81 Mg Tab, 1 TAB PO DAILY, #30 TAB 5 Refills 11/26/24 Carbamazepine (Carbamazepine ER) 100 Mg Tab, 200 MG PO QPM, TAB 07/02/24 Carbamazepine (Carbamazepine ER) 100 Mg Tab, 100 MG PO QAM, TAB 07/02/24 Amlodipine Besylate (Amlodipine Besylate) 5 Mg Tab, 5 MG PO HS 07/02/24 Rosuvastatin Calcium (Crestor) 20 Mg Tab, 1 TAB PO HS 07/02/24 Tramadol Hcl (Tramadol Hcl) 50 Mg Tab, 50 MG PO BID PRN for TRIGEMINAL NEURALGIA for 30 Days, #60 04/25/24 Baclofen (Baclofen) 10 Mg Tab, 1 TAB PO HS for 30 Days, #30 04/25/24 Ibuprofen (Ibuprofen) 600 Mg Tab, 1 TAB PO BID PRN for 30 Days, #60 0 Refills 04/25/24 Hydrocodone-Acetaminophen (Hydrocodone Bitartrate/AC 5-325 mg) 1 Tab Tab, 1 TAB PO Q6HR PRN for 30 Days, #120 04/25/24 Gabapentin (Gabapentin) 100 Mg Cap, 200 MG PO QPM for 30 Days, #90 04/24/24 Gabapentin (Gabapentin) 100 Mg Cap, 100 MG PO QAM for 30 Days, #90 04/24/24 Hydroxychloroquine Sulfate (PLAQUENIL) 200 Mg Tab, 1 TAB PO BID for 30 Days, #60 12/29/20 Lisinopril (Lisinopril) 10 Mg Tab, 1 TAB PO BID 02/20/18 Current Medications Current Medications Medications (Trade) Dose Ordered Sig/Rojelio Route PRN Reason Start Time Stop Time Status Last Admin Hydralazine HCl (Apresoline Injection) 10 mg Q6HP PRN IV SBP>160-170 11/27/24 15:00 11/28/24 03:03 Sodium Chloride 1,000 ml @ 75 mls/hr [id number] IV 11/27/24 15:00 11/28/24 00:59 Enteral Nutritional Formula (Ensure High Protein) 240 ml BIDWM PO 11/28/24 08:00 11/28/24 08:19 Morphine Sulfate 1 mg Q6HP PRN IV SEVERE PAIN (7-10 PAIN SCALE) 11/27/24 23:15 11/28/24 11:52 Azithromycin 250 ml @ 125 mls/hr DAILY IV 11/28/24 10:00 11/28/24 09:45 Naproxen (Naprosyn Tablet) 500 mg Q12HP PRN PO MODERATE PAIN (4-6 PAIN SCALE) 11/28/24 07:45 11/28/24 08:31 Review of Systems Unable to obtain Vital Signs Vital Signs Date Time Temp Pulse Resp B/P (MAP) Pulse Ox O2 Delivery O2 Flow Rate FiO2 11/28/24 11:52 87 18 140/61 11/28/24 08:54 99.9 92 99.9 11/28/24 08:08 Room Air* 0 21 Physical Exam Well-developed well-nourished elderly female in moderate distress due to confusion and placement in the hospital Examination of the right foot Skin is intact. No ecchymosis or edema. She has multiple toe deformities and a severe hallux valgus 1+ DP pulse She is tender throughout the metatarsal phalangeal joints though it seems to be more tender at the distal 5th metatarsal. She initially also complain of tenderness to palpation in the midfoot and actually throughout the entire right lower extremity. X-rays of the right foot reveal severe hallux valgus and multiple toe deformities with perhaps a slightly angulated 5th metatarsal neck fracture Labs/Diagnostic Data Labs Test 11/28/24 05:27 11/27/24 09:32 11/27/24 08:40 11/26/24 10:53 Range/Units White Blood Count 7.3 # 4.4-10.8 10^3/uL Red Blood Count 3.82 L 4.0-5.20 10^6/uL Hemoglobin 11.5 L 12.2-16.2 g/dL Hematocrit 33.8 L 36.0-46.0 % Mean Corpuscular Volume 88.6 80.0-100.0 fL Mean Corpuscular Hemoglobin 30.1 28.0-32.0 pg Mean Corpuscular Hemoglobin Concent 34.0 32.0-36.0 g/dL Red Cell Distribution Width 16.8 H 11.8-14.3 % Platelet Count 241 140-450 10^3/uL Mean Platelet Volume 8.7 6.9-10.8 fL Neutrophils (%) (Auto) 74.9 37.0-80.0 % Lymphocytes (%) (Auto) 15.8 10.0-50.0 % Monocytes (%) (Auto) 7.9 0.0-12.0 % Eosinophils (%) (Auto) 0.9 0.0-7.0 % Basophils (%) (Auto) 0.5 0.0-2.0 % Neutrophils # (Auto) 5.5 1.6-8.6 10 ^3/uL Lymphocytes # (Auto) 1.1 0.4-5.4 10 ^3/uL Monocytes # (Auto) 0.6 0-1.3 10 ^3/uL Eosinophils # (Auto) 0.1 0-0.8 10 ^3/uL Basophils # (Auto) 0 0-0.2 10 ^3/uL Nucleated Red Blood Cells 0.1 % Sodium Level 138 136-145 mmol/L Potassium Level 4.0 3.5-5.1 mmol/L Chloride Level 101 98-107 mmol/L Carbon Dioxide Level 27 20-31 mmol/L Anion Gap 10 5-15 Blood Urea Nitrogen 23 9-23 mg/dL Creatinine 1.06 H 0.550-1.02 mg/dL Glomerular Filtration Rate Calc 51 >90 mL/min BUN/Creatinine Ratio 21.7 H 10.0-20.0 Serum Glucose 117 H 74-106 mg/dL Calcium Level 10.2 8.7-10.4 mg/dL Ammonia < 10 L 11-32 umol/L Total Bilirubin 0.4 0.2-1.0 mg/dL Aspartate Amino Transferase (AST) 29 13-40 U/L Alanine Aminotransferase (ALT) 17 7-40 U/L Alkaline Phosphatase 144 H 46-116 U/L Total Protein 7.1 5.7-8.2 g/dL Albumin 3.9 3.2-4.8 g/dL Urine Color Light-yellow Yellow Urine Clarity Clear Clear Urine pH 7.0 5.0-9.0 Urine Specific [place] 1.007 1.001-1.035 Urine Protein Negative Negative Urine Ketones Negative Negative Urine Blood Negative Negative /uL Urine Nitrite Negative Negative Urine Bilirubin Negative Negative Urine Urobilinogen Normal Negative mg/dL Urine Leukocyte Esterase Negative Negative /uL Urine RBC 2 0 - 4 /hpf Urine Microscopic WBC 1 0-5 /HPF Urine Squamous Epithelial Cells Few <5 /hpf Urine Bacteria Few H None Seen /hpf Urine Hyaline Casts Few 0 - 2 /lpf Urine Glucose Normal Normal mg/dL Test 11/26/24 09:53 Range/Units Troponin I High Sensitivity 36 *H </=34 ng/L Assessment Right foot acute/subacute right distal 5th metatarsal fracture nondisplaced Plan/Recommendation Normally I would make recommendations for a postop shoe if this is available. I would not restrict weight-bearing however she may have some difficulty due to pain. Follow up on an outpatient basis. Plan discussed with: Patient, Other NEHA MARTIN MD Nov 28, 2024 12:17
[2024-11-28] MEDS: cefTRIAXone 2GM/50ML D5W 50 ML IV ONE (14:25)
[2024-11-28 14:45] LABS: Hematocrit 32.6 % (36.0-46.0); Hemoglobin 10.6 g/dL (12.2-16.2); Mean Corpuscular Hemoglobin 29.1 pg (28.0-32.0); Mean Corpuscular Volume 89.6 fL (80.0-100.0); Nucleated Red Blood Cells % 0.0 %
[2024-11-28 15:03] LABS: Alanine Aminotransferase 16 U/L (7-40); Anion Gap 8 (5-15); BUN/Creatinine Ratio 25.5 (10.0-20.0); Calcium 9.5 mg/dL (8.7-10.4); Carbon Dioxide 28 mmol/L (20-31); Chloride 101 mmol/L (98-107); Potassium 4.5 mmol/L (3.5-5.1); Sodium 137 mmol/L (136-145); Total Protein 5.8 g/dL (5.7-8.2)
[2024-11-28 15:04] LABS: Albumin 3.2 g/dL (3.2-4.8); Alkaline Phosphatase 124 U/L (46-116); Bilirubin, Total 0.3 mg/dL (0.2-1.0); Blood Urea Nitrogen 27 mg/dL (9-23); Glucose 130 mg/dL (74-106)
[2024-11-28] MEDS: DOXYCYCLINE 100MG/100ML 100 ML IV SCH (16:24)
[2024-11-28] MEDS: SODIUM CHLORIDE 0.9% 1,000 ML IV SCH (18:01)
[2024-11-28 20:38] LABS: Urine Protein, UAD Negative (Negative)
[2024-11-28 21:41] LABS: COVID19 ANTIGEN SOFIA FIA NEGATIVE (NEGATIVE)
[2024-11-28] MEDS: carBAMazepine 200 MG TAB PO SCH (22:16)
[2024-11-29] VITALS (9 sets, daily range): BP systolic 116–179; BP diastolic 58–86; PULSE 74–91; RESP 16–19; TEMP 97.6–98.5; O2SAT 91–97
[2024-11-29] MEDS: cefTRIAXone 2GM/50ML D5W 50 ML IV SCH (09:09)
[2024-11-29] MEDS: carBAMazepine 200 MG TAB PO SCH (09:35)
[2024-11-29] MEDS: LISINOPRIL 5 MG TAB PO SCH (09:37)
--- NOTE | 2024-11-29 10:33 | DVHPNRES ---
Progress Note Date Seen: Nov 29, 2024 Resident Creating Document: KITTY FREEMAN RESIDENT Has the PT tested + for MRSA If YES, has PT been informed?: No Medical Necessity Reason Pt with a Central, PICC or Fol: No Subjective Review of Systems This is a 89-year-old female with past medical history of hypertension, hyperlipidemia, anxiety, and depression. Patient resides at [facility], is usually A&O x 3, can do most of her own care, and administer her medications to her self. This morning the facility found her to be altered, repetitive, and had fallen. The patient was brought to the ED hospital for a fall with injury and confusion. During ED evaluation BP was 183/76 mmHg HR 97 O2sat 97%. Right foot Xray showed: 5th metatarsal fracture. 11/29/24. The patient was seen and examinated at bedside. Today, patient is alert, Ox3. BP 174/86 mmHg. The following medication were added it for better blood pressure control: Lisinopril 10 mg and carvedilol 6.25mg. Patient's IV line will be kept for hydralazine administration. Ceftriaxone 2 g was stopped and doxyclin was started. Podiactric saw the patient yesterday, Post-Op shoe was prescribed and f/u as out patient. Right foot pain is improving with current pain management. We will continue following up this patient. ROS: Constitutional: No Fever, Chills, Sweats, Weakness, Malaise, Other Eyes: No Pain, Vision change, Conjunctivae inflammation, Eyelid inflammation, Other, Redness ENT: No Ear pain, Ear discharge, Nose pain, Nose discharge, Nose congestion, Mouth pain, Mouth swelling, Throat pain, Throat swelling, Other Respiratory: No Cough, Dry, Shortness of breath, SOB with excertion, Wheezing, Hemoptysis, Pleuritic Pain, Sputum, Wheezing, Other Cardiovascular: No Chest Pain, Palpitations, Orthopnea, Paroxysmal Noc. Dyspnea, Edema, Lt Headedness, Other Gastrointestinal: No Nausea, Vomiting, Abdominal Pain, Diarrhea, Constipation, Melena, Hematochezia, Other Genitourinary: No Dysuria, No Frequency, No Incontinence, No Hematuria, No Retention, No Other Musculoskeletal: Right foot pain, bruise on right 4th and 5th metatarsals, right foot is immobilized. Skin: Bruises on left upper arm. Neurological: Alert, oriented x3, no neurologic deficits. Allergies: Hydromorphone (Verified Allergy, Unknown, 11/26/24) Objective vital signs Vital Sign Date Time Temp Pulse Resp B/P (MAP) Pulse Ox O2 Delivery O2 Flow Rate FiO2 11/29/24 09:37 174/68 11/29/24 08:36 98.1 83 16 94 98.1 11/29/24 08:17 Room Air* 0 21 Total Intake and Output 11/28/24 11/28/24 11/29/24 15:00 23:00 07:00 Intake Total 800 ml 450 ml Output Total 300 ml 950 ml Balance 500 ml -500 ml medications Current Medications Medications Dose Ordered Sig/Rojelio Route Start Time Stop Time Status Last Admin Dose Admin Baclofen 10 mg HS PO 11/26/24 22:00 11/28/24 22:15 10 MG Gabapentin 100 mg QAM PO 11/27/24 07:00 11/29/24 06:00 100 MG Gabapentin 200 mg QPM PO 11/26/24 18:00 11/28/24 18:02 200 MG Tramadol HCl 50 mg BID PRN PO 11/26/24 12:45 Patient Own Medication 1 tab BID PO 11/26/24 22:00 UNV Patient Own Medication 1 tab HS PO 11/26/24 22:00 UNV Atorvastatin Calcium 40 mg HS PO 11/26/24 22:00 11/28/24 22:15 40 MG Acetaminophen/ Hydrocodone Bitart 1 tab Q4HP PRN PO 11/26/24 13:45 Hold 11/28/24 02:38 1 TAB Ondansetron HCl 4 mg Q4HP PRN IV 11/26/24 13:45 11/28/24 04:56 4 MG Docusate Sodium 100 mg BIDPRN PRN PO 11/26/24 13:45 Enoxaparin Sodium 30 mg DAILY SC 11/27/24 10:00 11/29/24 09:36 30 MG Acetaminophen 650 mg Q6HP PRN PO 11/26/24 13:45 Nitroglycerin 0.4 mg Q5MINP PRN SL 11/26/24 13:45 Morphine Sulfate 2 mg Q30M PRN IV 11/26/24 13:45 Amlodipine Besylate 10 mg DAILY PO 11/27/24 10:00 11/29/24 09:37 10 MG Hydralazine HCl 10 mg Q6HP PRN IV 11/27/24 15:00 11/29/24 05:30 10 MG Enteral Nutritional Formula 240 ml BIDWM PO 11/28/24 08:00 11/29/24 09:18 240 ML Morphine Sulfate 1 mg Q6HP PRN IV 11/27/24 23:15 11/28/24 20:42 1 MG Naproxen 500 mg Q12HP PRN PO 11/28/24 07:45 11/29/24 09:19 500 MG Doxycycline Hyclate 100 ml @ 50 mls/hr Q12HR IV 11/28/24 12:45 11/28/24 22:15 50 MLS/HR Carbamazepine 200 mg HS PO 11/28/24 22:00 11/28/24 22:16 200 MG Carbamazepine 100 mg DAILY PO 11/29/24 10:00 11/29/24 09:35 100 MG Lisinopril 10 mg DAILY PO 11/29/24 10:00 11/29/24 09:37 10 MG Ceftriaxone Sodium/Dextrose 50 ml @ 50 mls/hr DAILY@0900 IV 11/29/24 09:09 laboratory and microbiology Laboratory Tests 11/28/24 14:00 Test 11/28/24 14:00 Range/Units Serum Glucose 130 H 74-106 mg/dL Microbiology Date/Time Source Procedure Growth Status 11/27/24 16:00 Blood Blood Culture - Preliminary NO GROWTH AFTER 24 HOURS OF INCUBATION. Resulted Problem List/Assessment/Plan Problem List/Assessment/Plan Assessment: -Hypertensive Emergency -Metabolic Encephalopaty -5th Metatarsal Fracture -Possible URI -Dehydratation -Sepsis likely due to atypical pneumonia Plan: Hypertensive Emergency High troponins 36 Continue hypertensive drugs -Hydralazine 10 mg IV, -Carvedilol 6.5 mg -Lisinopril 10mg -Procardia Ext, night time -Amlodipine 10 mg, stopped 11/29. Metabolic Encephalopaty Neuro consult (done) Level of consiousness improved 5th Metatarsal Fracture Podiatry: Post-Op Shoe Boot and f/u out patient. Pain medications: Hydrocodone/Acetaminophen 5/325mg Naproxeno 500 mg PO Sepsis likely due to atypical pneumonia Ceftriaxon 2 gr stopped. Doxyciclin 100mg PO started 11/29 Dehydratation Low urine output continue SSN 75ml/hr Plan discussed with: Patient My Orders My Orders Orders - KITTY FREEMAN Procedure Category Date Status Time Doxycycline PHA 11/28/24 In Process 100mg/100ml 12:45 KITTY FREEMAN Nov 29, 2024 10:33
[2024-11-29] MEDS: DOXYCYCLINE 100 MG TAB/CAP PO SCH (15:41)
[2024-11-29] MEDS: CARVEDILOL 3.125 MG TAB PO SCH (21:42)
[2024-11-30 01:00] VITALS: BP 128/63; PULSE 70; RESP 17; TEMP 97.6; O2SAT 93
[2024-11-30 05:00] VITALS: BP 132/65; PULSE 78; RESP 17; TEMP 97.5; O2SAT 94
[2024-11-30 07:16] LABS: Hematocrit 31.6 % (36.0-46.0); Hemoglobin 10.5 g/dL (12.2-16.2); Mean Corpuscular Hemoglobin 29.5 pg (28.0-32.0); Mean Corpuscular Volume 88.8 fL (80.0-100.0); Nucleated Red Blood Cells % 0.1 %
[2024-11-30 07:31] LABS: Anion Gap 10 (5-15); Carbon Dioxide 25 mmol/L (20-31); Chloride 100 mmol/L (98-107); Potassium 4.6 mmol/L (3.5-5.1)
[2024-11-30 07:32] LABS: Calcium 10.3 mg/dL (8.7-10.4)
[2024-11-30 07:36] LABS: Sodium 135 mmol/L (136-145)
[2024-11-30 07:37] LABS: BUN/Creatinine Ratio 30.6 (10.0-20.0); Blood Urea Nitrogen 33 mg/dL (9-23); Glucose 91 mg/dL (74-106)
[2024-11-30 08:00] VITALS: PULSE 76; RESP 18
[2024-11-30 09:00] VITALS: BP 143/74; PULSE 79; RESP 18; TEMP 97.1; O2SAT 93
[2024-11-30 13:29] VITALS: BP 136/65; PULSE 71; RESP 18; TEMP 97; O2SAT 95
[2024-11-30] MEDS ORDERED: DOXY1CAP57 PO (14:58)
[2024-11-30] MEDS ORDERED: FAMO20TA10 PO (14:58)
[2024-11-30] MEDS ORDERED: IBUP1TAB4 PO (14:58)
[2024-11-30] MEDS ORDERED: CEPH500C PO (14:58)
[2024-11-30] MEDS ORDERED: CARV6.2551 PO (15:00)
[2024-11-30] MEDS ORDERED: NIFE90TA75 PO (15:00)
--- NOTE | 2024-11-30 16:35 | DVHDSRES ---
Discharge Summary Date of Admission Resident Creating Document: KITTY FREEMAN RESIDENT Nov 26, 2024 at 13:31 Date of Discharge: Nov 30, 2024 Labs/Diagnostic Data: Laboratory Results Test 11/30/24 04:29 11/28/24 20:15 11/28/24 20:00 11/28/24 14:00 White Blood Count 7.6 10^3/uL (4.4-10.8) Red Blood Count 3.57 10^6/uL (4.0-5.20) Hemoglobin 10.5 g/dL (12.2-16.2) Hematocrit 31.6 % (36.0-46.0) Mean Corpuscular Volume 88.8 fL (80.0-100.0) Mean Corpuscular Hemoglobin 29.5 pg (28.0-32.0) Mean Corpuscular Hemoglobin Concent 33.2 g/dL (32.0-36.0) Red Cell Distribution Width 16.6 % (11.8-14.3) Platelet Count 262 10^3/uL (140-450) Mean Platelet Volume 8.8 fL (6.9-10.8) Neutrophils (%) (Auto) 78.8 % (37.0-80.0) Lymphocytes (%) (Auto) 10.0 % (10.0-50.0) Monocytes (%) (Auto) 7.7 % (0.0-12.0) Eosinophils (%) (Auto) 2.8 % (0.0-7.0) Basophils (%) (Auto) 0.7 % (0.0-2.0) Neutrophils # (Auto) 6.0 10 ^3/uL (1.6-8.6) Lymphocytes # (Auto) 0.8 10 ^3/uL (0.4-5.4) Monocytes # (Auto) 0.6 10 ^3/uL (0-1.3) Eosinophils # (Auto) 0.2 10 ^3/uL (0-0.8) Basophils # (Auto) 0.1 10 ^3/uL (0-0.2) Nucleated Red Blood Cells 0.1 % Sodium Level 135 mmol/L (136-145) Potassium Level 4.6 mmol/L (3.5-5.1) Chloride Level 100 mmol/L (98-107) Carbon Dioxide Level 25 mmol/L (20-31) Anion Gap 10 (5-15) Blood Urea Nitrogen 33 mg/dL (9-23) Creatinine 1.08 mg/dL (0.550-1.02) Glomerular Filtration Rate Calc 50 mL/min (>90) BUN/Creatinine Ratio 30.6 (10.0-20.0) Serum Glucose 91 mg/dL (74-106) Calcium Level 10.3 mg/dL (8.7-10.4) Urine Color Light-yellow (Yellow) Urine Clarity Clear (Clear) Urine pH 5.5 (5.0-9.0) Urine Specific [place] 1.013 (1.001-1.035) Urine Protein Negative (Negative) Urine Ketones Negative (Negative) Urine Blood Negative /uL (Negative) Urine Nitrite Negative (Negative) Urine Bilirubin Negative (Negative) Urine Urobilinogen Normal mg/dL (Negative) Urine Leukocyte Esterase Negative /uL (Negative) Urine RBC 2 /hpf (0 - 4) Urine Microscopic WBC 6 /HPF (0-5) Urine Squamous Epithelial Cells Few /hpf (<5) Urine Bacteria None seen /hpf (None Seen) Urine Mucus Few (None Seen) Urine Glucose Normal mg/dL (Normal) Influenza Type A Antigen Negative (Negative) Influenza Type B Antigen Negative (Negative) SARS-CoV-2 Antigen (Rapid) Negative (NEGATIVE) Total Bilirubin 0.3 mg/dL (0.2-1.0) Aspartate Amino Transferase (AST) 26 U/L (13-40) Alanine Aminotransferase (ALT) 16 U/L (7-40) Alkaline Phosphatase 124 U/L (46-116) Total Protein 5.8 g/dL (5.7-8.2) Albumin 3.2 g/dL (3.2-4.8) Test 11/27/24 09:32 11/26/24 10:53 11/26/24 09:53 Ammonia < 10 umol/L (11-32) Urine Hyaline Casts Few /lpf (0 - 2) Troponin I High Sensitivity 36 ng/L (</=34) Other Laboratory Tests 11/30/24 04:29 Brief Hx & Hospital Course: Review of Systems This is a 89-year-old female with past medical history of hypertension, hyperlipidemia, anxiety, and depression. Patient resides at [facility], is usually A&O x 3, can do most of her own care, and administer her medications to her self. On 11/26 the facility found her to be altered, repetitive, and had fallen. The patient was brought to the ED hospital for a fall with injury and confusion. During ED evaluation BP was 183/76 mmHg HR 97 O2sat 97%. Right foot Xray showed: 5th metatarsal fracture. 11/29/24. The patient was showing signs of improvement, she was alert, Ox3. BP was 174/86 mmHg. The following medication were added it for better blood pressure control: Lisinopril 10 mg and carvedilol 6.25mg. Patient's IV line was kept for hydralazine administration. Ceftriaxone 2 g was stopped and doxyclin was started. Podiactric saw the patient on 08/29, Post-Op shoe was prescribed and f/u as out patient. Today, 11/30/24. Right foot pain is improving, patient has started PT and stand with help . The patient will be discharged today to a SNF for rehabilitation and physical therapy. Patient will follow up with PCP in 1 week. ROS: Constitutional: No Fever, Chills, Sweats, Weakness, Malaise, Other Eyes: No Pain, Vision change, Conjunctivae inflammation, Eyelid inflammation, Other, Redness ENT: No Ear pain, Ear discharge, Nose pain, Nose discharge, Nose congestion, Mouth pain, Mouth swelling, Throat pain, Throat swelling, Other Respiratory: No Cough, Dry, Shortness of breath, SOB with excertion, Wheezing, Hemoptysis, Pleuritic Pain, Sputum, Wheezing, Other Cardiovascular: No Chest Pain, Palpitations, Orthopnea, Paroxysmal Noc. Dyspnea, Edema, Lt Headedness, Other Gastrointestinal: No Nausea, Vomiting, Abdominal Pain, Diarrhea, Constipation, Melena, Hematochezia, Other Genitourinary: No Dysuria, No Frequency, No Incontinence, No Hematuria, No Retention, No Other Musculoskeletal: Right foot pain, bruise on right 4th and 5th metatarsals, right foot is immobilized, patient wearing a post-op boot. Skin: Bruises on left upper arm. Neurological: Alert, oriented x3, no neurologic deficits. Allergies: Hydromorphone Examination General Appearance: Alert, Cooperative, mild distress, Other (Oriented x 3) HEENT: Atraumatic, PERRLA Respiratory: Clear to auscultation, Normal air movement Cardiovascular: Regular rate, Normal S1, Normal S2 Abdominal: Normal bowel sounds, Soft, No tenderness Extremities: Rigth foot pain on movements, patient wearing a post-op boot. Skin: No rashes, No breakdown, No significant lesion Psych/Mental Status: Alert, Oriented x3 , Cranial nerves intact, patient follow up commands. Problem List/Assessment/Plan Assessment Hypertensive Emergency Metabolic Encephalopaty 5th Metatarsal Fracture URI Dehydratation Sepsis likely due to atypical pneumonia Plan: Hypertensive Emergency, resolved BP 132/65 mmHg Continue hypertensive drugs Metabolic Encephalopaty Neuro consult (done), no changes in current plan. Level of consciousness improved 5th Metatarsal Fracture Post-Op boot, Physical Therapy Pain medications: Hydrocodone/Acetaminophen 5/325mg Ibuprofen 400 mg BID prn Sepsis likely due to atypical pneumonia Doxyciclin 100mg po bid x 5 days Keflex 500 mg bid x 5 days Dehydratation Continue with oral hydration Plan discussed with: Patient Plan discussed with attending Dr. Black. Follow up with PCP in 1 week. Follow up with podiatry in 1 week. Condition at Discharge: Stable Final Diagnosis/Problems List Hypertensive Emergency Metabolic Encephalopaty Right 5th Metatarsal Fracture Sepsis likely due to atypical pneumonia Dehydratation Discharge Disposition: Intermediate Facility SNF Discharge Will this Physician continue t: Yes Discharge Instruct/Medications Diet: Cardiac 2g Na,low cholest Activity: No Restrictions, As Tolerated Follow Up/Referral: Follow up with PCP in 1 Week Follow up with Cardiology in 1 Week Follow up with [facility] in 1 Week Medications: -Coreg 90 mg po qd -Carvedilol 6.25 mg po qd -Lisinopril 10 mg po qd -Doxyciclin 100 mg PO for 5 days Scheduled Aspirin (Aspir-81), 1 TAB PO DAILY, (Reported) Baclofen (Baclofen), 1 TAB PO HS, (Reported) Carbamazepine (Carbamazepine ER), 200 MG PO QPM, (Reported) Carvedilol (Carvedilol), 1 TAB PO BID Cephalexin Monohydrate (Cephalexin), 1 CAP PO BID Doxycycline Monohydrate (Doxycycline Monohydrate), 1 CAP PO BID Famotidine (Pepcid Tablet), 1 TAB PO BID Gabapentin (Gabapentin), 100 MG PO QAM, (Reported) Gabapentin (Gabapentin), 200 MG PO QPM, (Reported) Hydrocodone-Acetaminophen (Hydrocodone Bitartrate/AC 5-325 mg), 1 TAB PO Q6HR PRN, (Reported) Lisinopril (Lisinopril), 1 TAB PO BID, (Reported) Nifedipine (Nifedipine Er), 1 TAB PO DAILY Rosuvastatin Calcium (Crestor), 1 TAB PO HS, (Reported) Scheduled PRN Ibuprofen Micronized (Ibuprofen), 400 MG PO BID PRN Tramadol Hcl (Tramadol Hcl), 50 MG PO BID PRN for TRIGEMINAL NEURALGIA, (Reported) Discontinued Medications Amlodipine Besylate (Amlodipine Besylate), 5 MG PO HS, (Reported) Carbamazepine (Carbamazepine ER), 100 MG PO QAM, (Reported) Hydroxychloroquine Sulfate (Plaquenil), 1 TAB PO BID, (Reported) Ibuprofen (Ibuprofen), 1 TAB PO BID PRN, (Reported) Discharge Statement: "Patient was advised to return to the ER or call 911 if any headaches, dizziness, shortness of breath, chest pain, abdominal pain, bleeding, fevers, or worsening of medical condition. Patient was counseled about treatment plan, medications, possible side effects, patientverbalized understanding. All questions were answered to the best of my ability. This discharge took greater then 30 minutes in planning, reviewing documentation, counseling the patient, and discussing with other team members." ASSESSMENT ASSESSMENT Assessment Hypertensive Emergency Metabolic Encephalopaty Right 5th Metatarsal Fracture Sepsis likely due to atypical pneumonia Dehydratation KITTY FREEMAN RESIDENT Nov 30, 2024 16:35
[2024-11-30 16:41] VITALS: BP 130/66; PULSE 75; RESP 18; TEMP 97.2; O2SAT 95
== END 2024-11-30 19:00 | DRG 871 ==
LOC: EDBD 08:50 → ER 08:50 → OVERFLOW 13:31 → TELE-EAST 18:48
PROVIDERS: ADMIT Student in an Organized Health Care Education/Training Program; ATTEND Emergency Medicine
DX: A41.50 Gram-negative sepsis, unspecified (principal); G93.41 Metabolic encephalopathy; J15.69 Pneumonia due to other Gram-negative bacteria; I16.1 Hypertensive emergency; I24.89 Other forms of acute ischemic heart disease; S92.351A Displaced fracture of fifth metatarsal bone, right foot, initial encounter for closed fracture; F32.A Depression, unspecified; I73.9 Peripheral vascular disease, unspecified; E78.5 Hyperlipidemia, unspecified; E86.0 Dehydration; F41.9 Anxiety disorder, unspecified; Z20.822 Contact with and (suspected) exposure to COVID-19; K21.9 Gastro-esophageal reflux disease without esophagitis; M48.02 Spinal stenosis, cervical region; M47.812 Spondylosis without myelopathy or radiculopathy, cervical region; M43.12 Spondylolisthesis, cervical region; I10 Essential (primary) hypertension; Z90.49 Acquired absence of other specified parts of digestive tract; J06.9 Acute upper respiratory infection, unspecified; Z83.42 Family history of familial hypercholesterolemia; Z93.3 Colostomy status; Z86.73 Personal history of transient ischemic attack (TIA), and cerebral infarction without residual deficits; Z88.8 Allergy status to other drugs, medicaments and biological substances; Z90.710 Acquired absence of both cervix and uterus; Z88.5 Allergy status to narcotic agent; Z85.3 Personal history of malignant neoplasm of breast; Z79.899 Other long term (current) drug therapy; Z79.82 Long term (current) use of aspirin; Z82.49 Family history of ischemic heart disease and other diseases of the circulatory system; Z82.3 Family history of stroke; Z82.0 Family history of epilepsy and other diseases of the nervous system; Z80.1 Family history of malignant neoplasm of trachea, bronchus and lung; Z80.0 Family history of malignant neoplasm of digestive organs; W18.39XA Other fall on same level, initial encounter; Y93.89 Activity, other specified; Y92.89 Other specified places as the place of occurrence of the external cause; Y99.8 Other external cause status
CPT/HCPCS: 36415; 70450; 71045; 72170; 73600; 73620; 80048; 80053; 81001; 82140; 84484; 85025; 87040; 87426; 87804; 93306; 96360; 97110; 97116; 97163; 99291; 99292; G0378; J2405